=== PATIENT | female | born 1945 | race Caucasian/White ===

== ENCOUNTER 2017-10-26 19:25 | Inpatient (IN) | payer MEDICARE, BC ==
[2017-10-26 20:26] LABS: BASO # 0.1 K/uL (0.0-0.2); BASO % 0.4 % (0.0-2.0); EOS % 0.1 % (0.0-4.0); HEMOGLOBIN 11.4 g/dL (12.0-16.0); LYMPH % 7.9 % (20.0-40.0); MEAN CELL VOLUME 75.4 fl (81.0-99.0); MEAN CORPUSCULAR HEMOGLOBIN 24.6 pg (27.0-31.0); MEAN CORPUSCULAR HGB CONC 32.6 g/dL (33.0-37.0); MEAN PLATELET VOLUME 7.8 fl (7.2-11.7); MONO # 1.2 K/uL (0.0-0.8); MONO % 9.7 % (0.0-10.0); NEUT # 9.9 K/uL (1.8-7.0); NEUT % 81.9 % (50.0-75.0); PLATELET COUNT 279 K/uL (130-400); RBC 4.62 Mil/uL (3.80-5.20); RED CELL DISTRIBUTION WIDTH 14.7 % (11.5-14.5); WHITE BLOOD COUNT 12.1 K/uL (4.8-10.8)
[2017-10-26 20:36] LABS: ALB/GLOB RATIO 1.2 (1.0-2.1); ALBUMIN 4.5 g/dL (3.5-5.0)
--- NOTE | 2017-10-26 20:56 | ED PDOC ---
HPI: Altered Mental Status Time Seen by Provider: 10/26/17 19:38 Chief Complaint (Nursing): Altered Mental Status History Per: Patient, Family History/Exam Limitations: None Onset/Duration Of Symptoms: Hrs Onset Of Symptoms: <4.5 Hours Current Symptoms Are (Timing): Still Present Description Of Symptoms: Not At Baseline Usual Baseline: Alert Oriented, Alert Confused Additional Complaint(s): Hx of DM, HTN p/w AMS. Son last saw patient acting normally at 10AM, states he saw her last normal around 3-4PM, the acute episode of AMS was her confusion in an elevator where she was pushing buttons that weren't hers. Son states that she has been on ABx for a UTI (levoquin, macrobid) and has developed a rash on bilateral arms for 1 day as well. Patient is non-verbal, confused upon arrival. Past Medical History Reviewed: Unable To Obtain Vital Signs: Last Vital Signs Temp 98.8 F 10/26/17 20:15 Pulse 103 H 10/26/17 20:15 Resp 18 10/26/17 20:15 BP 156/95 H 10/26/17 20:15 Pulse Ox 98 10/26/17 20:15 - Medical History PMH: Diabetes, HTN - Family History Family History: States: Unknown Family Hx - Home Medications Home Medications: Ambulatory Orders Medication Instructions Recorded Carvedilol [Coreg] 25 mg PO BID 06/17/16 Ferrous Sulfate [Feosol] 325 mg PO HS 06/17/16 Glimepiride [Amaryl] 4 mg PO BID 06/17/16 Linagliptin [Tradjenta] 5 mg PO DAILY 06/17/16 Metformin ER [Glucophage XR] 750 mg PO BID 06/17/16 Multivitamin [Multi-Vitamin Daily] 1 tab PO DAILY 06/17/16 Pravastatin Sodium [Pravachol] 40 mg PO HS 06/17/16 Valsartan/Hydrochlorothiazide 1 tab PO BID 06/17/16 [Valsartan-Hctz 160-25 mg Tab] amLODIPine [Norvasc] 5 mg PO DAILY 06/17/16 Furosemide [Lasix] 40 mg PO DAILY 10/26/17 Guaifen/Dextromethorphan/PE [Cvs 20 ml PO Q6 PRN 10/26/17 Tussin Cf Cough-Cold Syrup] Hydrochlorothiazide [Microzide] 25 mg PO DAILY 10/26/17 Potassium Chloride [Klor-Con 10] 10 meq PO DAILY 10/26/17 levoFLOXacin [Levaquin] 500 mg PO DAILY 10/26/17 - Allergies Allergies/Adverse Reactions: Allergies Allergy/AdvReac Type Severity Reaction Status Date / Time acetaminophen [From Tylenol] Allergy RASH Verified 06/17/16 17:39 chlorophyllin Allergy RASH Verified 06/17/16 17:39 baking soda Allergy RASH Uncoded 06/17/16 17:39 Review of Systems Review Of Systems: ROS cannot be obtained secondary to pt's inabilty to answer questions. Physical Exam - Reviewed Nursing Documentation Reviewed: Yes Vital Signs Reviewed: Yes - Physical Exam Appears: Positive for: Well. 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 Negative for: Alert (non-verbal but eyes open spontaneously, GCS 9 at time of exam), Oriented, Facial Droop - Laboratory Results Result Diagrams: 10/26/17 20:15 10/26/17 20:15 - ECG ECG Rhythm: Positive for: Normal QRS O2 Sat by Pulse Oximetry: 98 Pulse Ox Interpretation: Normal - Critical Care Total Time (In Min): 60 Medical Decision Making Medical Decision Making: Hx of DM, HTN, recent UTI p/w AMS -at time of presentation patient was aphasic, confused, however at 830PM patient is now recognizing family members, smiling, seems more alert -possible CVA v. electrolyte abnormality v. infection v. infection -time of onset very difficult to ascertain 930PM Pt. is now speaking more alertly and keenly, walking. Evaluated by neuro Dr. Valadez (at bedside) who states that patient does not need TPA at this time, likely dementia related. Mildly elevated troponin, repeat EKG shows no ischemic changes. Will admit for further workup. Disposition - Clinical Impression Clinical Impression: TIA (transient ischemic attack), Altered mental state, Elevated troponin, Hypokalemia - Disposition Disposition Time: 21:30 Condition: IMPROVED
[2017-10-26] MEDS ORDERED: Iodixanol 320 MG/ML 100 ML BOTTLE IV ONE (20:57)
[2017-10-26] MEDS ORDERED: Sodium Chloride 0.9% 50 ML IV ONE (20:58)
[2017-10-26 21:00] LABS: TROPONIN I 0.408 ng/mL (0.00-0.120)
[2017-10-26 21:10] LABS: INR 1.3 (0.9-1.2); PARTIAL THROMBOPLASTIN TIME 30.8 Seconds (25.6-37.1)
--- NOTE | 2017-10-26 21:54 | CP.PCM.CON ---
History of Present Illness - History of Present Illness History of Present Illness: 71 yr old woman with pmh of DM, HTN, cardiac disease, without history of atrial fibrillation, no pacemaker in place who presents with approximately 12 hour history of confusion. Patient's baseline is that she cooks, cleans, and occasionally plays with her grandchildren,. She does not drive or do bills. There is no history of head trauma, MVA or any other cranial surgery. Of note, she developed a UTI 3 weeks ago, and was started on levoquine last Tuesday. She was well with no side effects until around 3 pm today, when after being stuck in an elevator, she seemed confused. There is no history tonic clonic activity, no urinary incontinence, no staring spells. In the ER, she was found to have decreased verbal output, with no focal weakness. CT head was done, normal, and CTA was done as well, report pending. PMH/PSH: hyperlipidemia, hypothyroidism, heart disease (patient is on lasix) FH/SH: . has several children. no tobacco, no etoh. All : tylenol. on exam: AAox2. knows her children, daughter in law and can name 3 obects in [place]. no dysarthria. Can not speak full sentences, but does follow 3 step commands, and moves extremities against gravity well. 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 We pulled her to sit but she was a fall risk so she did not stand. There is no gaze preference, no field cut that we could appreciate. EOMI. CN 2- 12 normal. SHe has a reddish raised rash on her arms only, with no pruritus. No facial asymmetry. DTR: +1 ul and ll bl. Toes downgoing. No clonus. No drift. Past Patient History - Infectious Disease Hx of Infectious Diseases: None - Past Social History Smoking Status: Never Smoked - CARDIAC Hx Hypertension: Yes - ENDOCRINE/METABOLIC Hx Endocrine Disorders: Yes Hx Diabetes Mellitus Type 2: Yes - PSYCHIATRIC Hx Substance Use: No - SURGICAL HISTORY Hx Surgeries: Yes Hx Cataract Extraction: Yes (bilateral) Hx Orthopedic Surgery: Yes (bilateral knee replacement) - ANESTHESIA Hx Anesthesia: Yes Hx Anesthesia Reactions: No Meds Allergies/Adverse Reactions: Allergies Allergy/AdvReac Type Severity Reaction Status Date / Time acetaminophen [From Tylenol] Allergy RASH Verified 06/17/16 17:39 chlorophyllin Allergy RASH Verified 06/17/16 17:39 baking soda Allergy RASH Uncoded 06/17/16 17:39 Results - Vital Signs Recent Vital Signs: Last Vital Signs Temp 98.8 F 10/26/17 20:15 Pulse 103 H 10/26/17 20:45 Resp 18 10/26/17 20:45 BP 162/87 H 10/26/17 20:45 Pulse Ox 98 10/26/17 21:00 - Labs Result Diagrams: 10/26/17 20:15 10/26/17 20:15 Labs: Laboratory Results - last 24 hr 10/26/17 10/26/17 10/26/17 19:42 20:15 20:15 WBC 12.1 H RBC 4.62 Hgb 11.4 L Hct 34.9 MCV 75.4 L MCH 24.6 L MCHC 32.6 L RDW 14.7 H Plt Count 279 MPV 7.8 Neut % (Auto) 81.9 H Lymph % (Auto) 7.9 L Owsley % (Auto) 9.7 Eos % (Auto) 0.1 Baso % (Auto) 0.4 Neut # (Auto) 9.9 H Lymph # (Auto) 1.0 Owsley # (Auto) 1.2 H Eos # (Auto) 0.0 Baso # (Auto) 0.1 PT INR APTT Sodium 128 L Potassium 3.1 L Chloride 81 L Carbon Dioxide 31 H Anion Gap 19 BUN 30 H Creatinine 1.9 H Est GFR ( Amer) 32 Est GFR (Non-Af Amer) 26 POC Glucose (mg/dL) 231 H Random Glucose 284 H Calcium 10.0 Total Bilirubin 0.9 AST 33 ALT 37 Alkaline Phosphatase 94 Troponin I 0.4080 H* Total Protein 8.4 H Albumin 4.5 Globulin 3.9 Albumin/Globulin Ratio 1.2 Triglycerides 147 Cholesterol 141 LDL Cholesterol Direct 40 HDL Cholesterol 53 Blood Type Antibody Screen BBK History Checked 10/26/17 10/26/17 20:15 20:25 WBC RBC Hgb Hct MCV MCH MCHC RDW Plt Count MPV Neut % (Auto) Lymph % (Auto) Owsley % (Auto) Eos % (Auto) Baso % (Auto) Neut # (Auto) Lymph # (Auto) Owsley # (Auto) Eos # (Auto) Baso # (Auto) PT 14.0 H INR 1.3 H APTT 30.8 Sodium Potassium Chloride Carbon Dioxide Anion Gap BUN Creatinine Est GFR ( Amer) Est GFR (Non-Af Amer) POC Glucose (mg/dL) Random Glucose Calcium Total Bilirubin AST ALT Alkaline Phosphatase Troponin I Total Protein Albumin Globulin Albumin/Globulin Ratio Triglycerides Cholesterol LDL Cholesterol Direct HDL Cholesterol Blood Type O NEGATIVE Antibody Screen Negative BBK History Checked No verified bt - Imaging and Cardiology CT scan - head Additional comment: CT head is normal. No stroke, no hemorrhage. Assessment & Plan - Assessment and Plan (Free Text) Assessment: 71 yr old woman who has delirium with underlying infection, most likely UTI (? levoquin resistant), with normal neurological exam. It is possible that this spell was a complex partial seizure, or TIA. Plan: 1. MRi Brain tomorrow 2. EEG 3. start aspirin 4. Carotid Dopplers 5. Official CTA read 6. ECHO 7. Dysphagia evaluation. 8. UTI antibiotics: blood and urine culture. Thank you for this interesting consultation. Our team will follow.
[2017-10-26 22:14] LABS: ANISOCYTOSIS SLIGHT; BANDS 3 % (0-2); HYPOCHROMIC SLIGHT; LYMPHOCYTE 10 % (20-50); MICROCYTOSIS MODERATE; MONOCYTE 9 % (0-10); NEUTROPHIL 78 % (42-75); OVALOCYTES SLIGHT; PLATELET ESTIMATE NORMAL (NORMAL); POIKILOCYTOSIS SLIGHT; TOTAL CELLS COUNTED 100
[2017-10-26] MEDS ORDERED: Potassium Chloride 20 mEq ER Tab PO ONE ×2 (22:21→22:58)
[2017-10-26 22:52] LABS: SQUAMOUS EPITHIAL < 1 /hpf (0-5); URINE BACTERIA RARE (<OCC); URINE BILIRUBIN NEGATIVE (NEGATIVE); URINE BLOOD SMALL (NEGATIVE); URINE CLARITY SLIGHTY-CLOUDY (Clear); URINE COLOR YELLOW (YELLOW); URINE GLUCOSE (UA) 150 mg/dL (Normal); URINE LEUKOCYTE ESTERASE TRACE Leu/uL (Negative); URINE NITRATE NEGATIVE (NEGATIVE); URINE PROTEIN NEGATIVE (NEGATIVE); URINE UROBILINOGEN 0.2-1.0 mg/dL (0.2-1.0)
[2017-10-27] MEDS ORDERED: Alum-Mag Hydrox-Simethicone Susp (30 mL) PO ONE (02:52)
[2017-10-27] MEDS: Heparin 25,000units in D5W 25,000 UNITS/250 ML BAG IV SCH (06:21)
[2017-10-27 07:23] LABS: HEMOGLOBIN 10.9 g/dL (12.0-16.0); MEAN CELL VOLUME 75.2 fl (81.0-99.0); MEAN CORPUSCULAR HGB CONC 33.2 g/dL (33.0-37.0); RBC 4.38 Mil/uL (3.80-5.20); RED CELL DISTRIBUTION WIDTH 14.6 % (11.5-14.5); WHITE BLOOD COUNT 10.2 K/uL (4.8-10.8)
[2017-10-27 07:35] LABS: BLOOD UREA NITROGEN 18 mg/dl (7-17); CALCIUM 9.7 mg/dL (8.4-10.2); GFR AFRICAN-AMERICAN > 60; GFR NON-AFRICAN AMERICAN > 60
[2017-10-27] MEDS ORDERED: Sodium Chloride 0.9% 1,000 ML IV SCH (07:45)
[2017-10-27] MEDS ORDERED: Patient's Own Med (Metformin Er [Glucophage Xr] 750 mg) PO SCH (09:00)
[2017-10-27] MEDS ORDERED: Patient's Own Med (Multivitamin [Multi-Vitamin Daily] 1 TAB) PO SCH (09:00)
[2017-10-27] MEDS ORDERED: Enoxaparin 30 mg Syringe SC SCH (09:00)
--- NOTE | 2017-10-27 09:24 | CT ---
PROCEDURE: CT HEAD WITHOUT CONTRAST. HISTORY: AMS COMPARISON: CT head dated 06/17/2016. TECHNIQUE: Axial computed tomography images were obtained through the head/brain without intravenous contrast. Radiation dose: Total exam DLP = 2049.7 mGy-cm. This CT exam was performed using one or more of the following dose reduction techniques: Automated exposure control, adjustment of the mA and/or kV according to patient size, and/or use of iterative reconstruction technique. FINDINGS: HEMORRHAGE: No intracranial hemorrhage. BRAIN: No mass effect or edema. Mild atrophy. Mild chronic periventricular white matter microvascular ischemic changes. VENTRICLES: Mild prominence. No hydrocephalus. CALVARIUM: Unremarkable. PARANASAL SINUSES: Trace fluid in the dependent right sphenoid sinus. MASTOID AIR CELLS: Unremarkable as visualized. No inflammatory changes. OTHER FINDINGS: None. IMPRESSION: No acute intracranial pathology.
--- NOTE | 2017-10-27 11:03 | CT ---
PROCEDURE: CT Angiography of the neck with contrast HISTORY: AMS, aphasia COMPARISON: None available. TECHNIQUE: Contiguous axial images of the neck were obtained from the level of the skull-base to the superior mediastinum in the arteriographic phase of enhancement. Coronal and sagittal reformats or also generated. IV contrast dose: 80 cc of Visipaque Radiation Dose - DLP: 2103 mGy-cm This CT exam was performed using one or more of the following dose reduction techniques: Automated exposure control, adjustment of the mA and/or kV according to patient size, and/or use of iterative reconstruction technique. FINDINGS: RIGHT CAROTID ARTERIES: Common Carotid Artery: Normal. Carotid Bifurcation: Normal. Internal Carotid Artery:Normal. External Carotid Artery (proximal branches): Normal. LEFT CAROTID ARTERIES: Common Carotid Artery: Normal. Carotid Bifurcation: Normal. Internal Carotid Artery:Normal. External Carotid Artery (proximal branches): Normal. VERTEBRAL ARTERIES: Right Vertebral Artery: Normal. Left Vertebral Artery: Normal. OTHER FINDINGS: None. IMPRESSION: No significant stenosis PROCEDURE: CT Angiography of the Brain. HISTORY: AMS, aphasia COMPARISON: None available. TECHNIQUE: CT angiography of the intracranial arteries was performed. Coronal and sagittal maximum intensity projection reformated images were generated. This CT exam was performed using one or more of the following dose reduction techniques: Automated exposure control, adjustment of the mA and/or kV according to patient size, and/or use of iterative reconstruction technique. FINDINGS: INTERNAL CEREBRAL ARTERIES: Unremarkable. The skull base, petrous, cavernous and supraclinoid segments are bilaterally widely patent. There is heavy calcification of the intra cavernous portion of both carotid arteries but no stenosis ANTERIOR CEREBRAL ARTERIES: Unremarkable. A1 and A2 segments are widely patent. Smaller distal branches unremarkable, as visualized. MIDDLE CEREBRAL ARTERIES: Unremarkable. M1 and M2 segments are widely patent. Perisylvian branches grossly symmetric. POSTERIOR CIRCULATION: Basilar Artery: Unremarkable. Distal Vertebral Arteries: Unremarkable. Posterior Cerebral Arteries: Unremarkable. Posterior Inferior Cerebellar Arteries: Unremarkable. ANEURYSM/ VASCULAR MALFORMATIONS: None. OTHER FINDINGS: The report concurs with the preliminary [facility] report IMPRESSION: Unremarkable CT Angiography of the Brain.
--- NOTE | 2017-10-27 11:25 | RAD ---
HISTORY: Altered mental status. COMPARISON: 07/30/2009 FINDINGS: LUNGS: No active pulmonary disease. PLEURA: No significant pleural effusion identified, no pneumothorax apparent. CARDIOVASCULAR: Buster for cardiac OSSEOUS STRUCTURES: No significant abnormalities. VISUALIZED UPPER ABDOMEN: Normal. OTHER FINDINGS: None. IMPRESSION: No active disease. No significant interval change compared to the prior examination(s). Concordant results with the preliminary interpretation rendered by the emergency department physician procedure.
[2017-10-27] MEDS ORDERED: Glucagon Recombinant 1 mg Inj IM PRN (12:24)
[2017-10-27] MEDS ORDERED: Dextrose 50% SYRINGE Inj (50 ml) IV PRN (12:24)
--- NOTE | 2017-10-27 12:25 | CARD ---
APPROVED REPORT EKG Measurement Heart [id number] <Conclusion> Normal sinus rhythm ST & T wave abnormality, consider anterior ischemia Abnormal ECG
--- NOTE | 2017-10-27 12:28 | CARD ---
APPROVED REPORT EKG Measurement Heart [id number] <Conclusion> Sinus rhythm with 1st degree AV block Cannot rule out Inferior infarct, age undetermined ST & T wave abnormality, consider anterior ischemia Abnormal ECG
--- NOTE | 2017-10-27 13:18 | CARD ---
APPROVED REPORT EXAM: Two-dimensional and M-mode echocardiogram with Doppler and color Doppler. Other Information Quality : AverageRhythm : NSR Technically limited study due to Pt not very cooperative INDICATION CVA/TIA Elevated Troponin 2D DIMENSIONS Left Atrium (2D)2.62 (1.6-4.0cm)IVSd0.91 (0.7-1.1cm) LVDd4.65 (3.9-5.9cm)PWd0.66 (0.7-1.1cm) IVSs0.89 (0.8-1.2cm)LVDs3.59 (2.5-4.0cm) FS (%) 22.8 %PWs0.74 (0.8-1.2cm) Mitral Valve MV E Bmfddouu55.9cm/sMV DECEL [id number] A Ujxckaqu36.1cm/s MV FKG34dkD/A ratio0.8MVA (PHT)2.71cm2 TDI E/Lateral E'0.0E/Medial E'0.0 LEFT VENTRICLE The left ventricle is normal size. There is normal left ventricular wall thickness. The left ventricular function is normal. The left ventricular ejection fraction is within the normal range. The Ejection Fraction is 50-55%. There is normal LV segmental wall motion. Transmitral Doppler flow pattern is Grade I-abnormal relaxation pattern. RIGHT VENTRICLE The right ventricle is normal size. The right ventricular systolic function is normal. ATRIA The left atrium size is normal. The right atrium size is normal. AORTIC VALVE The aortic valve is normal in structure. No aortic regurgitation is present. There is no aortic valvular stenosis. MITRAL VALVE The mitral valve is normal in structure. There is no mitral valve stenosis. There is no mitral valve regurgitation noted. TRICUSPID VALVE The tricuspid valve is normal in structure. There is no tricuspid valve regurgitation noted. There is no tricuspid valve stenosis. PULMONIC VALVE The pulmonary valve is normal in structure. There is no pulmonic valvular regurgitation. GREAT VESSELS The aortic root is normal in size. The IVC is normal in size and collapses >50% with inspiration. PERICARDIAL EFFUSION The pericardium appears normal. <Conclusion> The left ventricle is normal size. The left ventricular function is normal. The left ventricular ejection fraction is within the normal range. The Ejection Fraction is 50-55%.
[2017-10-27] MEDS: GlipiZIDE 10 mg SR Tab PO SCH ×2 (14:48→17:28)
[2017-10-27] MEDS: Potassium Chl 20 mEq in NS 1,000 ML IV SCH ×2 (14:49→22:12)
[2017-10-27] MEDS: Multivitamin With Minerals Tab PO SCH (14:49)
--- NOTE | 2017-10-27 15:57 | CP.PCM.CON ---
History of Present Illness - History of Present Illness History of Present Illness: MENTAL STATUS CHANGE YESTERDAY WITH CONFUSION AND REPETITION OF WORDS. PTS FAMILY STATES SHE HAS BEEN COMPLAINING OF CONFUSION, FATIGUE AND MOUTH DRYNESS FOR 1 WEEK. SHE HAD MILD ABD PAIN YESTERDAY. NO COMPLAINTS OF CP, SOB, DIARRHEA, MARTIN, DOUBLE VISION, DIZZINESS. NO KNOWN CAD HX. IN ER PT WAS CONFUSED AND TROP DRAWN WHICH WERE INITIALLY LOW, REPEAT 1.9. EKG SHOWS INVERTED LATERAL T WAVES. NA 123, K LOW. Past Patient History - Infectious Disease Hx of Infectious Diseases: None - Past Social History Smoking Status: Never Smoked - CARDIAC Hx Hypertension: Yes - ENDOCRINE/METABOLIC Hx Endocrine Disorders: Yes - PSYCHIATRIC Hx Substance Use: No - SURGICAL HISTORY Hx Surgeries: Yes Hx Cataract Extraction: Yes (bilateral) Hx Orthopedic Surgery: Yes (bilateral knee replacement) - ANESTHESIA Hx Anesthesia: Yes Hx Anesthesia Reactions: No Meds Allergies/Adverse Reactions: Allergies Allergy/AdvReac Type Severity Reaction Status Date / Time acetaminophen [From Tylenol] Allergy RASH Verified 06/17/16 17:39 chlorophyllin Allergy RASH Verified 06/17/16 17:39 Sulfa (Sulfonamide Allergy RASH Verified 10/27/17 17:00 Antibiotics) baking soda Allergy RASH Uncoded 06/17/16 17:39 - Medications Medications: Current Medications Amlodipine Besylate (Norvasc) 5 mg PO DAILY COUNTS INCLUDE 234 BEDS AT THE [facility] Last Admin: 10/27/17 14:48 Dose: Not Given Aspirin (Aspirin) 325 mg PO DAILY COUNTS INCLUDE 234 BEDS AT THE [facility] Last Admin: 10/27/17 14:46 Dose: Not Given Carvedilol (Coreg) 25 mg PO BID COUNTS INCLUDE 234 BEDS AT THE [facility] Last Admin: 10/27/17 14:46 Dose: Not Given Dextrose (Dextrose 50% Inj) 0 ml IV STAT PRN; Protocol PRN Reason: Hypoglycemia Protocol Dextrose (Glutose 15) 0 gm PO ONCE PRN; Protocol PRN Reason: Hypoglycemia Protocol Ferrous Sulfate (Feosol) 325 mg PO HS COUNTS INCLUDE 234 BEDS AT THE [facility] Glipizide (Glucotrol Xl) 10 mg PO BID COUNTS INCLUDE 234 BEDS AT THE [facility] Last Admin: 10/27/17 14:48 Dose: Not Given Glucagon (Glucagen Diagnostic Kit) 0 mg IM STAT PRN; Protocol PRN Reason: Hypoglycemia Protocol Heparin Sodium/Dextrose (Heparin 25,000 Units/250ml In D5w) 25,000 units in 250 mls @ 8 mls/hr IV .Q24H DANIELLE PRN Reason: Protocol Last Admin: 10/27/17 06:21 Dose: 8 mls/hr Potassium Chloride/Sodium Chloride (Potassium Chl 20 Meq In Ns) 1,000 mls @ 100 mls/hr IV .Q10H DANIELLE Stop: 10/28/17 07:32 Last Admin: 10/27/17 14:49 Dose: 100 mls/hr Insulin Human Regular (Humulin R) 0 units SC ACHS DANIELLE PRN Reason: Protocol Multivitamins/Minerals (Therapeutic-M Tab) 1 tab PO DAILY DANIELLE Last Admin: 10/27/17 14:49 Dose: Not Given Pravastatin Sodium (Pravachol) 40 mg PO HS DANIELLE Sitagliptin Phosphate (Januvia) 25 mg PO DAILY COUNTS INCLUDE 234 BEDS AT THE [facility] Last Admin: 10/27/17 14:48 Dose: Not Given Results - Vital Signs Recent Vital Signs: Last Vital Signs Temp 97.4 F L 10/27/17 12:47 Pulse 65 10/27/17 12:47 Resp 18 10/27/17 12:47 BP 135/65 10/27/17 12:47 Pulse Ox 96 10/27/17 12:47 - Labs Result Diagrams: 10/27/17 07:05 10/27/17 17:37 Labs: Laboratory Results - last 24 hr 10/26/17 10/26/17 10/26/17 19:42 20:15 20:15 WBC 12.1 H RBC 4.62 Hgb 11.4 L Hct 34.9 MCV 75.4 L MCH 24.6 L MCHC 32.6 L RDW 14.7 H Plt Count 279 MPV 7.8 Neut % (Auto) 81.9 H Lymph % (Auto) 7.9 L [place] % (Auto) 9.7 Eos % (Auto) 0.1 Baso % (Auto) 0.4 Neut # (Auto) 9.9 H Lymph # (Auto) 1.0 [place] # (Auto) 1.2 H Eos # (Auto) 0.0 Baso # (Auto) 0.1 Neutrophils % (Manual) 78 H Band Neutrophils % 3 H Lymphocytes % (Manual) 10 L Monocytes % (Manual) 9 Platelet Estimate Normal Hypochromasia (manual) Slight Poikilocytosis (manual Slight Anisocytosis (manual) Slight Microcytosis (manual) Moderate Ovalocytes Slight PT INR APTT Sodium 128 L Potassium 3.1 L Chloride 81 L Carbon Dioxide 31 H Anion Gap 19 BUN 30 H Creatinine 1.9 H Est GFR ( Amer) 32 Est GFR (Non-Af Amer) 26 POC Glucose (mg/dL) 231 H Random Glucose 284 H Serum Osmolality Calcium 10.0 Total Bilirubin 0.9 AST 33 ALT 37 Alkaline Phosphatase 94 Troponin I 0.4080 H* Total Protein 8.4 H Albumin 4.5 Globulin 3.9 Albumin/Globulin Ratio 1.2 Triglycerides 147 Cholesterol 141 LDL Cholesterol Direct 40 HDL Cholesterol 53 TSH 3rd Generation Urine Color Urine Clarity Urine pH Ur Specific [place] Urine Protein Urine Glucose (UA) Urine Ketones Urine Blood Urine Nitrate Urine Bilirubin Urine Urobilinogen Ur Leukocyte Esterase Urine RBC (Auto) Urine Microscopic WBC Ur Squamous Epith Cells Urine Bacteria Urine Osmolality Blood Type Antibody Screen BBK History Checked 10/26/17 10/26/17 10/26/17 20:15 20:25 22:11 WBC RBC Hgb Hct MCV MCH MCHC RDW Plt Count MPV Neut % (Auto) Lymph % (Auto) [place] % (Auto) Eos % (Auto) Baso % (Auto) Neut # (Auto) Lymph # (Auto) [place] # (Auto) Eos # (Auto) Baso # (Auto) Neutrophils % (Manual) Band Neutrophils % Lymphocytes % (Manual) Monocytes % (Manual) Platelet Estimate Hypochromasia (manual) Poikilocytosis (manual Anisocytosis (manual) Microcytosis (manual) Ovalocytes PT 14.0 H INR 1.3 H APTT 30.8 Sodium Potassium Chloride Carbon Dioxide Anion Gap BUN Creatinine Est GFR ( Amer) Est GFR (Non-Af Amer) POC Glucose (mg/dL) Random Glucose Serum Osmolality Calcium Total Bilirubin AST ALT Alkaline Phosphatase Troponin I Total Protein Albumin Globulin Albumin/Globulin Ratio Triglycerides Cholesterol LDL Cholesterol Direct HDL Cholesterol TSH 3rd Generation Urine Color Yellow Urine Clarity Slighty-cloudy Urine pH 7.0 Ur Specific [place] 1.013 Urine Protein Negative Urine Glucose (UA) 150 Urine Ketones Trace Urine Blood Small Urine Nitrate Negative Urine Bilirubin Negative Urine Urobilinogen 0.2-1.0 Ur Leukocyte Esterase Trace Urine RBC (Auto) < 1 Urine Microscopic WBC 1 Ur Squamous Epith Cells < 1 Urine Bacteria Rare Urine Osmolality Blood Type O NEGATIVE Antibody Screen Negative BBK History Checked No verified bt 10/26/17 10/27/17 10/27/17 23:10 04:21 05:32 WBC RBC Hgb Hct MCV MCH MCHC RDW Plt Count MPV Neut % (Auto) Lymph % (Auto) [place] % (Auto) Eos % (Auto) Baso % (Auto) Neut # (Auto) Lymph # (Auto) [place] # (Auto) Eos # (Auto) Baso # (Auto) Neutrophils % (Manual) Band Neutrophils % Lymphocytes % (Manual) Monocytes % (Manual) Platelet Estimate Hypochromasia (manual) Poikilocytosis (manual Anisocytosis (manual) Microcytosis (manual) Ovalocytes PT INR APTT Sodium Potassium Chloride Carbon Dioxide Anion Gap BUN Creatinine Est GFR ( Amer) Est GFR (Non-Af Amer) POC Glucose (mg/dL) 199 H 227 H Random Glucose Serum Osmolality Calcium Total Bilirubin AST ALT Alkaline Phosphatase Troponin I 1.9200 H* Total Protein Albumin Globulin Albumin/Globulin Ratio Triglycerides Cholesterol LDL Cholesterol Direct HDL Cholesterol TSH 3rd Generation Urine Color Urine Clarity Urine pH Ur Specific [place] Urine Protein Urine Glucose (UA) Urine Ketones Urine Blood Urine Nitrate Urine Bilirubin Urine Urobilinogen Ur Leukocyte Esterase Urine RBC (Auto) Urine Microscopic WBC Ur Squamous Epith Cells Urine Bacteria Urine Osmolality Blood Type Antibody Screen BBK History Checked 10/27/17 10/27/17 10/27/17 06:00 06:01 07:05 WBC 10.2 RBC 4.38 Hgb 10.9 L Hct 32.9 L MCV 75.2 L MCH 25.0 L MCHC 33.2 RDW 14.6 H Plt Count 266 MPV Neut % (Auto) Lymph % (Auto) [place] % (Auto) Eos % (Auto) Baso % (Auto) Neut # (Auto) Lymph # (Auto) [place] # (Auto) Eos # (Auto) Baso # (Auto) Neutrophils % (Manual) Band Neutrophils % Lymphocytes % (Manual) Monocytes % (Manual) Platelet Estimate Hypochromasia (manual) Poikilocytosis (manual Anisocytosis (manual) Microcytosis (manual) Ovalocytes PT INR APTT Sodium 123 L Potassium 3.1 L Chloride 82 L Carbon Dioxide 27 Anion Gap 17 BUN 18 H Creatinine 0.8 Est GFR ( Amer) > 60 Est GFR (Non-Af Amer) > 60 POC Glucose (mg/dL) Random Glucose 234 H Serum Osmolality Calcium 9.7 Total Bilirubin AST ALT Alkaline Phosphatase Troponin I Total Protein Albumin Globulin Albumin/Globulin Ratio Triglycerides 148 Cholesterol 126 LDL Cholesterol Direct 37 HDL Cholesterol 48 TSH 3rd Generation 1.37 Urine Color Urine Clarity Urine pH Ur Specific [place] Urine Protein Urine Glucose (UA) Urine Ketones Urine Blood Urine Nitrate Urine Bilirubin Urine Urobilinogen Ur Leukocyte Esterase Urine RBC (Auto) Urine Microscopic WBC Ur Squamous Epith Cells Urine Bacteria Urine Osmolality Blood Type Antibody Screen BBK History Checked 10/27/17 10/27/17 10/27/17 07:45 07:59 12:29 WBC RBC Hgb Hct MCV MCH MCHC RDW Plt Count MPV Neut % (Auto) Lymph % (Auto) [place] % (Auto) Eos % (Auto) Baso % (Auto) Neut # (Auto) Lymph # (Auto) [place] # (Auto) Eos # (Auto) Baso # (Auto) Neutrophils % (Manual) Band Neutrophils % Lymphocytes % (Manual) Monocytes % (Manual) Platelet Estimate Hypochromasia (manual) Poikilocytosis (manual Anisocytosis (manual) Microcytosis (manual) Ovalocytes PT INR APTT Sodium Potassium Chloride Carbon Dioxide Anion Gap BUN Creatinine Est GFR ( Amer) Est GFR (Non-Af Amer) POC Glucose (mg/dL) 249 H Random Glucose Serum Osmolality 270 L Calcium Total Bilirubin AST ALT Alkaline Phosphatase Troponin I Total Protein Albumin Globulin Albumin/Globulin Ratio Triglycerides Cholesterol LDL Cholesterol Direct HDL Cholesterol TSH 3rd Generation Urine Color Urine Clarity Urine pH Ur Specific [place] Urine Protein Urine Glucose (UA) Urine Ketones Urine Blood Urine Nitrate Urine Bilirubin Urine Urobilinogen Ur Leukocyte Esterase Urine RBC (Auto) Urine Microscopic WBC Ur Squamous Epith Cells Urine Bacteria Urine Osmolality 287 L Blood Type Antibody Screen BBK History Checked 10/27/17 10/27/17 12:50 14:02 WBC RBC Hgb Hct MCV MCH MCHC RDW Plt Count MPV Neut % (Auto) Lymph % (Auto) [place] % (Auto) Eos % (Auto) Baso % (Auto) Neut # (Auto) Lymph # (Auto) [place] # (Auto) Eos # (Auto) Baso # (Auto) Neutrophils % (Manual) Band Neutrophils % Lymphocytes % (Manual) Monocytes % (Manual) Platelet Estimate Hypochromasia (manual) Poikilocytosis (manual Anisocytosis (manual) Microcytosis (manual) Ovalocytes PT INR APTT Sodium Potassium Chloride Carbon Dioxide Anion Gap BUN Creatinine Est GFR ( Amer) Est GFR (Non-Af Amer) POC Glucose (mg/dL) Random Glucose Serum Osmolality 274 Calcium Total Bilirubin AST ALT Alkaline Phosphatase Troponin I 1.2600 H* Total Protein Albumin Globulin Albumin/Globulin Ratio Triglycerides Cholesterol LDL Cholesterol Direct HDL Cholesterol TSH 3rd Generation Urine Color Urine Clarity Urine pH Ur Specific [place] Urine Protein Urine Glucose (UA) Urine Ketones Urine Blood Urine Nitrate Urine Bilirubin Urine Urobilinogen Ur Leukocyte Esterase Urine RBC (Auto) Urine Microscopic WBC Ur Squamous Epith Cells Urine Bacteria Urine Osmolality Blood Type Antibody Screen BBK History Checked Assessment & Plan (1) Hyponatremia Status: Acute (2) Altered mental state Status: Acute (3) Elevated troponin Status: Acute (4) Hypokalemia Status: Acute - Assessment and Plan (Free Text) Plan: PT'S TROP IS TRENDING DOWN. SHE IS ON ASA AND HEPARIN TROPONIN IS LIKELY DUE TO SUBENDOCARDIAL ISCHEMIA GIVEN ELEVATED BP AND HR DURING CONFUSION ONCE CONFUSION RESOLVES THEN WILL EVAL FOR CAD. PT'S HYPONATREMIA IS LIKELY THE CAUSE OF HER MS CHANGES I SUSPECT HYPONATREMIA SECONDARY TO HCTZ AND LASIX. NO SEDATION SO MS CAN BE MONITORED 80 MIN TOTAL CARE
[2017-10-27] MEDS ORDERED: Potassium Chloride 20 mEq/15 ml LIQ UD PO ONE (15:58)
[2017-10-27 16:34] LABS: INR 1.3 (0.9-1.2); PARTIAL THROMBOPLASTIN TIME 48.8 Seconds (25.6-37.1); PROTHROMBIN TIME 14.5 Seconds (9.8-13.1)
[2017-10-27] MEDS: Insulin Regular 100 units/ml SC SCH ×2 (17:20→22:01)
[2017-10-27 18:36] LABS: BLOOD UREA NITROGEN 9 mg/dl (7-17); CALCIUM 7.8 mg/dL (8.4-10.2); GFR AFRICAN-AMERICAN > 60; GFR NON-AFRICAN AMERICAN > 60
[2017-10-27 18:38] LABS: MAGNESIUM 0.9 MG/DL (1.6-2.3)
[2017-10-27 21:15] LABS: MAGNESIUM 0.9 MG/DL (1.6-2.3)
[2017-10-27] MEDS ORDERED: Magnesium Sulfate 2 gm/50 ml 2 GM/50 ML BAG IVPB ONE (21:21)
[2017-10-27 21:31] LABS: BLOOD UREA NITROGEN 8 mg/dl (7-17); CALCIUM 7.6 mg/dL (8.4-10.2); GFR AFRICAN-AMERICAN > 60; GFR NON-AFRICAN AMERICAN > 60
[2017-10-27] MEDS: Pravastatin Sodium 40 MG TAB PO SCH (22:06)
--- NOTE | 2017-10-28 00:12 | CP.PCM.HP ---
History of Present Illness - History of Present Illness History of Present Illness: CC: AMS 1 Week History of Present Illness: A 71 yoF with H/O DM II & HTN presented with AMS which progressively worsened over a week. Son last saw patient acting normally at 10AM, states he saw her last normal around 3-4PM, the acute episode of AMS was her confusion in an elevator where she was pushing buttons that weren't hers. Son states that she has been on Abx for a UTI (levoquin, macrobid) and has developed a rash on bilateral arms for 1 day as well. Patient is non-verbal, confused upon arrival. In the ER, she was found to have Elevated Troponin, Hyponatremia and GERALD Present on Admission - Present on Admission Any Indicators Present on Admission: Yes History of DVT/PE: No History of Uncontrolled Diabetes: Yes Urinary Catheter: No Decubitus Ulcer Present: No Past Patient History - Infectious Disease Hx of Infectious Diseases: None - Past Medical History & Family History Past Medical History?: Yes - Past Social History Smoking Status: Never Smoked - CARDIAC Hx Hypertension: Yes - PULMONARY Hx Respiratory Disorders: No - NEUROLOGICAL Hx Neurological Disorder: No - HEENT Hx HEENT Problems: Yes Hx Cataracts: Yes - RENAL Hx Chronic Kidney Disease: No - ENDOCRINE/METABOLIC Hx Endocrine Disorders: Yes - HEMATOLOGICAL/ONCOLOGICAL Hx Blood Disorders: No Hx Blood Transfusions: No - INTEGUMENTARY Hx Dermatological Problems: Yes Other/Comment: Generalized rashes - MUSCULOSKELETAL/RHEUMATOLOGICAL Hx Musculoskeletal Disorders: No Hx Falls: No - GASTROINTESTINAL Hx Gastrointestinal Disorders: No - GENITOURINARY/GYNECOLOGICAL Hx Genitourinary Disorders: No - PSYCHIATRIC Hx Substance Use: No - SURGICAL HISTORY Hx Surgeries: Yes Hx Cataract Extraction: Yes (bilateral) Hx Orthopedic Surgery: Yes (bilateral knee replacement) - ANESTHESIA Hx Anesthesia: Yes Hx Anesthesia Reactions: No Meds Allergies/Adverse Reactions: Allergies Allergy/AdvReac Type Severity Reaction Status Date / Time acetaminophen [From Tylenol] Allergy RASH Verified 06/17/16 17:39 chlorophyllin Allergy RASH Verified 06/17/16 17:39 Sulfa (Sulfonamide Allergy RASH Verified 10/27/17 17:00 Antibiotics) baking soda Allergy RASH Uncoded 06/17/16 17:39 Results - Vital Signs Recent Vital Signs: Last Vital Signs Temp 98 F 10/27/17 17:00 Pulse 73 10/27/17 17:10 Resp 16 10/27/17 17:00 BP 129/72 10/27/17 17:10 Pulse Ox 100 10/27/17 17:00 - Labs Result Diagrams: 10/27/17 07:05 10/27/17 21:23 Labs: Laboratory Results - last 24 hr 10/27/17 10/27/17 10/27/17 04:21 05:32 06:00 WBC RBC Hgb Hct MCV MCH MCHC RDW Plt Count ESR PT INR APTT Sodium Potassium Chloride Carbon Dioxide Anion Gap BUN Creatinine Est GFR ( Amer) Est GFR (Non-Af Amer) POC Glucose (mg/dL) 227 H Random Glucose Hemoglobin A1c Serum Osmolality Calcium Magnesium Troponin I 1.9200 H* Triglycerides 148 Cholesterol 126 LDL Cholesterol Direct 37 HDL Cholesterol 48 TSH 3rd Generation 1.37 Urine Osmolality Ur Random Sodium Ur Random Potassium 10/27/17 10/27/17 10/27/17 06:01 06:41 07:05 WBC 10.2 RBC 4.38 Hgb 10.9 L Hct 32.9 L MCV 75.2 L MCH 25.0 L MCHC 33.2 RDW 14.6 H Plt Count 266 ESR PT INR APTT Sodium 123 L Potassium 3.1 L Chloride 82 L Carbon Dioxide 27 Anion Gap 17 BUN 18 H Creatinine 0.8 Est GFR ( Amer) > 60 Est GFR (Non-Af Amer) > 60 POC Glucose (mg/dL) Random Glucose 234 H Hemoglobin A1c 7.7 H Serum Osmolality Calcium 9.7 Magnesium Troponin I Triglycerides Cholesterol LDL Cholesterol Direct HDL Cholesterol TSH 3rd Generation Urine Osmolality Ur Random Sodium Ur Random Potassium 10/27/17 10/27/17 10/27/17 07:45 07:59 12:29 WBC RBC Hgb Hct MCV MCH MCHC RDW Plt Count ESR PT INR APTT Sodium Potassium Chloride Carbon Dioxide Anion Gap BUN Creatinine Est GFR ( Amer) Est GFR (Non-Af Amer) POC Glucose (mg/dL) 249 H Random Glucose Hemoglobin A1c Serum Osmolality 270 L Calcium Magnesium Troponin I Triglycerides Cholesterol LDL Cholesterol Direct HDL Cholesterol TSH 3rd Generation Urine Osmolality 287 L Ur Random Sodium Ur Random Potassium 10/27/17 10/27/17 10/27/17 12:50 14:02 14:45 WBC RBC Hgb Hct MCV MCH MCHC RDW Plt Count ESR PT 14.5 H INR 1.3 H APTT 48.8 H D Sodium Potassium Chloride Carbon Dioxide Anion Gap BUN Creatinine Est GFR ( Amer) Est GFR (Non-Af Amer) POC Glucose (mg/dL) Random Glucose Hemoglobin A1c Serum Osmolality 274 Calcium Magnesium Troponin I 1.2600 H* Triglycerides Cholesterol LDL Cholesterol Direct HDL Cholesterol TSH 3rd Generation Urine Osmolality Ur Random Sodium Ur Random Potassium 10/27/17 10/27/17 10/27/17 16:01 17:37 17:37 WBC RBC Hgb Hct MCV MCH MCHC RDW Plt Count ESR PT INR APTT Sodium 132 Potassium 6.2 H* D Chloride 97 L Carbon Dioxide 26 Anion Gap 15 BUN 9 Creatinine 0.5 L Est GFR ( Amer) > 60 Est GFR (Non-Af Amer) > 60 POC Glucose (mg/dL) 227 H Random Glucose 197 H Hemoglobin A1c Serum Osmolality 277 Calcium 7.8 L Magnesium 0.9 L* Troponin I Triglycerides Cholesterol LDL Cholesterol Direct HDL Cholesterol TSH 3rd Generation Urine Osmolality Ur Random Sodium Ur Random Potassium 10/27/17 10/27/17 10/27/17 17:37 18:27 20:25 WBC RBC Hgb Hct MCV MCH MCHC RDW Plt Count ESR 17 PT INR APTT Sodium Potassium Chloride Carbon Dioxide Anion Gap BUN Creatinine Est GFR ( Amer) Est GFR (Non-Af Amer) POC Glucose (mg/dL) Random Glucose Hemoglobin A1c Serum Osmolality Calcium Magnesium Troponin I 2.3100 H* Triglycerides Cholesterol LDL Cholesterol Direct HDL Cholesterol TSH 3rd Generation Urine Osmolality 247 L Ur Random Sodium 26 Ur Random Potassium 15.5 10/27/17 10/27/17 10/27/17 20:25 20:25 21:23 WBC RBC Hgb Hct MCV MCH MCHC RDW Plt Count ESR PT INR APTT 61.6 H D Sodium 130 L Potassium 3.7 3.8 Chloride 96 L Carbon Dioxide 23 Anion Gap 15 BUN 8 Creatinine 0.5 L Est GFR ( Amer) > 60 Est GFR (Non-Af Amer) > 60 POC Glucose (mg/dL) Random Glucose 214 H Hemoglobin A1c Serum Osmolality Calcium 7.6 L Magnesium 0.9 L* Troponin I Triglycerides Cholesterol LDL Cholesterol Direct HDL Cholesterol TSH 3rd Generation Urine Osmolality Ur Random Sodium Ur Random Potassium 10/27/17 21:53 WBC RBC Hgb Hct MCV MCH MCHC RDW Plt Count ESR PT INR APTT Sodium Potassium Chloride Carbon Dioxide Anion Gap BUN Creatinine Est GFR ( Amer) Est GFR (Non-Af Amer) POC Glucose (mg/dL) 175 H Random Glucose Hemoglobin A1c Serum Osmolality Calcium Magnesium Troponin I Triglycerides Cholesterol LDL Cholesterol Direct HDL Cholesterol TSH 3rd Generation Urine Osmolality Ur Random Sodium Ur Random Potassium Assessment & Plan (1) NSTEMI (non-ST elevated myocardial infarction) Status: Acute (2) GERALD (acute kidney injury) Status: Acute (3) Hypokalemia Status: Acute (4) Hyponatremia Status: Acute (5) TIA (transient ischemic attack) Status: Acute
[2017-10-28 05:36] LABS: HEMOGLOBIN 10.3 g/dL (12.0-16.0); MEAN CELL VOLUME 76.4 fl (81.0-99.0); MEAN CORPUSCULAR HEMOGLOBIN 25.3 pg (27.0-31.0); MEAN CORPUSCULAR HGB CONC 33.1 g/dL (33.0-37.0); RBC 4.08 Mil/uL (3.80-5.20); RED CELL DISTRIBUTION WIDTH 14.5 % (11.5-14.5); WHITE BLOOD COUNT 5.6 K/uL (4.8-10.8)
[2017-10-28 06:04] LABS: ALB/GLOB RATIO 1.1 (1.0-2.1); ALBUMIN 3.5 g/dL (3.5-5.0); ALT/SGPT 30 U/L (9-52); AST/SGOT 43 U/L (14-36); BLOOD UREA NITROGEN 10 mg/dl (7-17); CALCIUM 8.8 mg/dL (8.4-10.2); GFR AFRICAN-AMERICAN > 60; GFR NON-AFRICAN AMERICAN > 60
[2017-10-28] MEDS: Insulin Regular 100 units/ml SC SCH ×2 (07:10→22:12)
[2017-10-28] MEDS: Heparin 25,000units in D5W 25,000 UNITS/250 ML BAG IV SCH (07:14)
[2017-10-28] MEDS ORDERED: Pneumococcal 23-Valent Vaccine IM ONE (09:00)
[2017-10-28] MEDS ORDERED: Influenza Vaccine 18yr & older 0.5 ML/45 MCG SYR IM ONE (09:00)
[2017-10-28] MEDS ORDERED: cefTRIAXone (Rocephin) 1 gm Inj IM SCH (09:00)
[2017-10-28] MEDS: GlipiZIDE 10 mg SR Tab PO SCH ×2 (10:25→17:46)
[2017-10-28] MEDS: Multivitamin With Minerals Tab PO SCH (10:26)
--- NOTE | 2017-10-28 10:49 | CP.PCM.PN ---
Subjective - Date & Time of Evaluation Date of Evaluation: 10/28/17 Time of Evaluation: 10:45 - Subjective Subjective: Ms. Coleman was seen and examined at the bedside. She is alert, oriented speaks minimal lithuanian mainly Azeri. She is able to comprehend questions and able to answer questions appropriately. She denies any headache, dizziness, lightheadedness, nausea, or vomiting. The son claims of patient having poor appetitive since she was diagnose with infection. She is currently receiving heparin drip and maintenance IVF.She is able to follow simple commands. CTA of the head and neck showed no significant stenosis of the neck and unremakable CT angiography of the brain. There was no untoward events overnight. Objective - Vital Signs/Intake and Output Vital Signs (last 24 hours): Temp Pulse Resp BP Pulse Ox 97.2 F L 68 20 149/87 98 10/28/17 08:00 10/28/17 10:24 10/28/17 08:00 10/28/17 10:24 10/28/17 08:00 - Medications Medications: Current Medications Amlodipine Besylate (Norvasc) 5 mg PO DAILY [facility] Last Admin: 10/28/17 10:25 Dose: 5 mg Aspirin (Aspirin) 325 mg PO DAILY [facility] Last Admin: 10/28/17 10:23 Dose: 325 mg Carvedilol (Coreg) 25 mg PO BID [facility] Last Admin: 10/28/17 10:24 Dose: 25 mg Dextrose (Dextrose 50% Inj) 0 ml IV STAT PRN; Protocol PRN Reason: Hypoglycemia Protocol Dextrose (Glutose 15) 0 gm PO ONCE PRN; Protocol PRN Reason: Hypoglycemia Protocol Ferrous Sulfate (Feosol) 325 mg PO HS [facility] Last Admin: 10/27/17 22:06 Dose: Not Given Glipizide (Glucotrol Xl) 10 mg PO BID [facility] Last Admin: 10/28/17 10:25 Dose: 10 mg Glucagon (Glucagen Diagnostic Kit) 0 mg IM STAT PRN; Protocol PRN Reason: Hypoglycemia Protocol Heparin Sodium/Dextrose (Heparin 25,000 Units/250ml In D5w) 25,000 units in 250 mls @ 8 mls/hr IV .Q24H DANIELLE PRN Reason: Protocol Last Admin: 10/28/17 07:14 Dose: 8 mls/hr Ceftriaxone Sodium 1 gm/ (Sodium Chloride) 100 mls @ 100 mls/hr IVPB DAILY DANIELLE PRN Reason: Protocol Last Admin: 10/28/17 10:26 Dose: 100 mls/hr Insulin Human Regular (Humulin R) 0 units SC ACHS DANIELLE PRN Reason: Protocol Last Admin: 10/28/17 07:10 Dose: Not Given Multivitamins/Minerals (Therapeutic-M Tab) 1 tab PO DAILY DANIELLE Last Admin: 10/28/17 10:26 Dose: 1 tab Pravastatin Sodium (Pravachol) 40 mg PO HS [facility] Last Admin: 10/27/17 22:06 Dose: Not Given Sitagliptin Phosphate (Januvia) 25 mg PO DAILY [facility] Last Admin: 10/28/17 10:25 Dose: 25 mg - Labs Labs: 10/28/17 05:15 10/28/17 05:15 PT 14.5 Seconds (9.8-13.1) H 10/27/17 14:45 INR 1.3 (0.9-1.2) H 10/27/17 14:45 APTT 62.6 Seconds (25.6-37.1) H 10/28/17 05:15 - Constitutional Appears: No Acute Distress - Head Exam Head Exam: NORMAL INSPECTION - Neurological Exam Neurological Exam: Alert, Awake Neuro motor strength exam: Left Upper Extremity: 4, Right Upper Extremity: 4, Left Lower Extremity: 4, Right Lower Extremity: 4 Additional comments: She is able to answer questions appropriately and follow simple commands. Sensation remains intact. Assessment and Plan (1) Acute metabolic encephalopathy Assessment & Plan: Case discussed with Dr. Valadez, continue all current medical, physical, and occupational therapies. Recommend to treat underlying electrolyte imbalance, elevated troponin. MRI is not possible due to patient history of knee replacement. Status: Acute
--- NOTE | 2017-10-28 10:59 | PQF GENQUE ---
This form is a permanent part of the medical record 10/28/17 Dr. Gross, The attending physician is required to clarify conflicting documentation in the medical record. The following documentation is noted in the medical record: Please clarify if NSTEMI is ruled in or ruled out after work-up. H&P: NSTEMI Cardiology: TROPONIN IS LIKELY DUE TO SUBENDOCARDIAL ISCHEMIA GIVEN ELEVATED BP AND HR DURING CONFUSION Admitted with AMS. Has been on on Levaquin for a UTI. Noted in the ER with elevated troponin, GERALD, Hyponatremia and TIA Troponin: 0.408, 1.92, 1.26, 2.31 EKG: #[address] T wave abnormality, consider anterior ischemia EKG :#2: Sinus rhythm with 1st degree AV block Cannot rule out Inferior infarct , age undetermined , ST T wave abnormality, consider anterior ischemia Medication: Heparin Drip, ASA, Coreg, Pravastatin Clarification of your documentation is requested to better reflect the severity of illness and intensity of treatment of your patient. Indicators present [] Specify: [] [] Specify: [] [] Specify: [] [] Specify: [] Location in the medical record that reflects the above clinical findings: [] Treatment Provided: [] PHYSICIAN'S RESPONSE Based on your medical judgment of the clinical indicators outlined above please clarify the following: [] Practitioner response [] If unable to determine, please check the box, sign and date. Present On Admission (POA) Indicator: [] Present at the time of admission [] Not present at the time of admission [] Clinically Undetermined In responding to this query, please exercise your independent professional judgment. The fact that a question is asked does not imply that any particular answer is desired or expected. Thank you for your clarification on this documentation. If you have any questions please call:ext [phone] * Thank you, Tawny Brown RN CDMP [facility]
--- NOTE | 2017-10-28 11:28 | CARD ---
APPROVED REPORT EKG Measurement Heart [id number] <Conclusion> Sinus rhythm with sinus arrhythmia with 1st degree AV block Nonspecific ST and T wave abnormality Prolonged QT Abnormal ECG
--- NOTE | 2017-10-28 18:07 | CP.PCM.PN ---
Subjective - Date & Time of Evaluation Date of Evaluation: 10/28/17 Time of Evaluation: 18:07 Objective - Vital Signs/Intake and Output Vital Signs (last 24 hours): Temp Pulse Resp BP Pulse Ox 97.6 F 67 16 128/75 97 10/28/17 16:28 10/28/17 17:45 10/28/17 16:28 10/28/17 17:45 10/28/17 16:28 - Medications Medications: Current Medications Amlodipine Besylate (Norvasc) 5 mg PO DAILY [facility] Last Admin: 10/28/17 10:25 Dose: 5 mg Aspirin (Aspirin) 325 mg PO DAILY [facility] Last Admin: 10/28/17 10:23 Dose: 325 mg Carvedilol (Coreg) 25 mg PO BID [facility] Last Admin: 10/28/17 17:45 Dose: 25 mg Dextrose (Dextrose 50% Inj) 0 ml IV STAT PRN; Protocol PRN Reason: Hypoglycemia Protocol Dextrose (Glutose 15) 0 gm PO ONCE PRN; Protocol PRN Reason: Hypoglycemia Protocol Enoxaparin Sodium (Lovenox) 70 mg SC Q12 [facility] PRN Reason: Protocol Ferrous Sulfate (Feosol) 325 mg PO HS [facility] Last Admin: 10/27/17 22:06 Dose: Not Given Glipizide (Glucotrol Xl) 10 mg PO BID [facility] Last Admin: 10/28/17 17:46 Dose: 10 mg Glucagon (Glucagen Diagnostic Kit) 0 mg IM STAT PRN; Protocol PRN Reason: Hypoglycemia Protocol Ceftriaxone Sodium 1 gm/ (Sodium Chloride) 100 mls @ 100 mls/hr IVPB DAILY [facility] PRN Reason: Protocol Last Admin: 10/28/17 10:26 Dose: 100 mls/hr Insulin Human Regular (Humulin R) 0 units SC ACHS [facility] PRN Reason: Protocol Last Admin: 10/28/17 07:10 Dose: Not Given Multivitamins/Minerals (Therapeutic-M Tab) 1 tab PO DAILY [facility] Last Admin: 10/28/17 10:26 Dose: 1 tab Pravastatin Sodium (Pravachol) 40 mg PO HS [facility] Last Admin: 10/27/17 22:06 Dose: Not Given Sitagliptin Phosphate (Januvia) 25 mg PO DAILY [facility] Last Admin: 10/28/17 10:25 Dose: 25 mg - Labs Labs: 10/28/17 05:15 10/28/17 05:15 PT 14.5 Seconds (9.8-13.1) H 10/27/17 14:45 INR 1.3 (0.9-1.2) H 10/27/17 14:45 APTT 62.6 Seconds (25.6-37.1) H 10/28/17 05:15 Assessment and Plan (1) Hyponatremia Status: Acute (2) Altered mental state Status: Acute (3) Elevated troponin Status: Acute (4) Hypokalemia Status: Acute - Assessment and Plan (Free Text) Plan: spoke with dr trejo (pts manager car). pt had mild cad on cath 3 years ago. pt is a diabetic. given troponins the plan is for cardiac cath on Tuesday.
[2017-10-28] MEDS: Enoxaparin 80 mg Syringe SC SCH (22:07)
[2017-10-28] MEDS: Pravastatin Sodium 40 MG TAB PO SCH (22:07)
[2017-10-29] MEDS: Insulin Regular 100 units/ml SC SCH ×4 (07:00→22:13)
[2017-10-29 08:02] LABS: BLOOD UREA NITROGEN 6 mg/dl (7-17); CALCIUM 8.4 mg/dL (8.4-10.2); GFR AFRICAN-AMERICAN > 60; GFR NON-AFRICAN AMERICAN > 60
[2017-10-29] MEDS: GlipiZIDE 10 mg SR Tab PO SCH ×2 (10:00→17:08)
[2017-10-29] MEDS: Enoxaparin 80 mg Syringe SC SCH ×2 (10:01→22:12)
[2017-10-29] MEDS: Multivitamin With Minerals Tab PO SCH (10:03)
--- NOTE | 2017-10-29 16:13 | CP.PCM.PN ---
Objective - Vital Signs/Intake and Output Vital Signs (last 24 hours): Temp Pulse Resp BP Pulse Ox 97.7 F 60 20 127/70 99 10/29/17 13:00 10/29/17 13:00 10/29/17 13:00 10/29/17 13:00 10/29/17 13:00 - Medications Medications: Current Medications Amlodipine Besylate (Norvasc) 5 mg PO DAILY [facility] Last Admin: 10/29/17 10:02 Dose: 5 mg Aspirin (Aspirin) 325 mg PO DAILY [facility] Last Admin: 10/29/17 10:00 Dose: 325 mg Carvedilol (Coreg) 25 mg PO BID [facility] Last Admin: 10/29/17 10:00 Dose: 25 mg Dextrose (Dextrose 50% Inj) 0 ml IV STAT PRN; Protocol PRN Reason: Hypoglycemia Protocol Dextrose (Glutose 15) 0 gm PO ONCE PRN; Protocol PRN Reason: Hypoglycemia Protocol Enoxaparin Sodium (Lovenox) 70 mg SC Q12 [facility] PRN Reason: Protocol Last Admin: 10/29/17 10:01 Dose: 70 mg Ferrous Sulfate (Feosol) 325 mg PO HS [facility] Last Admin: 10/28/17 22:07 Dose: 325 mg Glipizide (Glucotrol Xl) 10 mg PO BID [facility] Last Admin: 10/29/17 10:00 Dose: 10 mg Glucagon (Glucagen Diagnostic Kit) 0 mg IM STAT PRN; Protocol PRN Reason: Hypoglycemia Protocol Ceftriaxone Sodium 1 gm/ (Sodium Chloride) 100 mls @ 100 mls/hr IVPB DAILY [facility] PRN Reason: Protocol Last Admin: 10/29/17 10:03 Dose: 100 mls/hr Insulin Human Regular (Humulin R) 0 units SC ACHS [facility] PRN Reason: Protocol Last Admin: 10/29/17 12:19 Dose: 1 unit Multivitamins/Minerals (Therapeutic-M Tab) 1 tab PO DAILY [facility] Last Admin: 10/29/17 10:03 Dose: 1 tab Pravastatin Sodium (Pravachol) 40 mg PO HS [facility] Last Admin: 10/28/17 22:07 Dose: 40 mg Sitagliptin Phosphate (Januvia) 25 mg PO DAILY [facility] Last Admin: 10/29/17 10:01 Dose: 25 mg - Labs Labs: 10/28/17 05:15 10/29/17 06:52 PT 14.5 Seconds (9.8-13.1) H 10/27/17 14:45 INR 1.3 (0.9-1.2) H 10/27/17 14:45 APTT 80.9 Seconds (25.6-37.1) H D 10/29/17 06:52 Assessment and Plan (1) Hyponatremia Status: Acute (2) Altered mental state Status: Acute (3) Elevated troponin Status: Acute (4) Hypokalemia Status: Acute - Assessment and Plan (Free Text) Assessment: RECHECK TROP CATH TUESDAY PT HAD CATH 3 YEARS AGO AT [place] WHICH REVEALED MILD CAD. SHE IS DIABETIC.
[2017-10-29] MEDS: Pravastatin Sodium 40 MG TAB PO SCH (22:13)
--- NOTE | 2017-10-30 00:05 | CP.PCM.PN ---
Subjective - Date & Time of Evaluation Date of Evaluation: 10/28/17 Time of Evaluation: 18:00 Objective - Vital Signs/Intake and Output Vital Signs (last 24 hours): Temp Pulse Resp BP Pulse Ox 97.7 F 63 16 123/74 99 10/29/17 21:00 10/29/17 21:00 10/29/17 21:00 10/29/17 21:00 10/29/17 21:00 - Medications Medications: Current Medications Amlodipine Besylate (Norvasc) 5 mg PO DAILY [facility] Last Admin: 10/29/17 10:02 Dose: 5 mg Aspirin (Aspirin) 325 mg PO DAILY [facility] Last Admin: 10/29/17 10:00 Dose: 325 mg Carvedilol (Coreg) 25 mg PO BID [facility] Last Admin: 10/29/17 17:08 Dose: 25 mg Dextrose (Dextrose 50% Inj) 0 ml IV STAT PRN; Protocol PRN Reason: Hypoglycemia Protocol Dextrose (Glutose 15) 0 gm PO ONCE PRN; Protocol PRN Reason: Hypoglycemia Protocol Enoxaparin Sodium (Lovenox) 70 mg SC Q12 [facility] PRN Reason: Protocol Last Admin: 10/29/17 22:12 Dose: 70 mg Ferrous Sulfate (Feosol) 325 mg PO HS [facility] Last Admin: 10/29/17 22:13 Dose: 325 mg Glipizide (Glucotrol Xl) 10 mg PO BID [facility] Last Admin: 10/29/17 17:08 Dose: 10 mg Glucagon (Glucagen Diagnostic Kit) 0 mg IM STAT PRN; Protocol PRN Reason: Hypoglycemia Protocol Ceftriaxone Sodium 1 gm/ (Sodium Chloride) 100 mls @ 100 mls/hr IVPB DAILY [facility] PRN Reason: Protocol Last Admin: 10/29/17 10:03 Dose: 100 mls/hr Insulin Human Regular (Humulin R) 0 units SC ACHS [facility] PRN Reason: Protocol Last Admin: 10/29/17 22:13 Dose: Not Given Multivitamins/Minerals (Therapeutic-M Tab) 1 tab PO DAILY [facility] Last Admin: 10/29/17 10:03 Dose: 1 tab Pravastatin Sodium (Pravachol) 40 mg PO HS [facility] Last Admin: 10/29/17 22:13 Dose: 40 mg Sitagliptin Phosphate (Januvia) 25 mg PO DAILY [facility] Last Admin: 10/29/17 10:01 Dose: 25 mg - Labs Labs: 10/28/17 05:15 10/29/17 06:52 PT 14.5 Seconds (9.8-13.1) H 10/27/17 14:45 INR 1.3 (0.9-1.2) H 10/27/17 14:45 APTT 80.9 Seconds (25.6-37.1) H D 10/29/17 06:52 Assessment and Plan (1) NSTEMI (non-ST elevated myocardial infarction) Status: Acute (2) GERALD (acute kidney injury) Status: Acute (3) Hypokalemia Status: Acute (4) Hyponatremia Status: Acute (5) TIA (transient ischemic attack) Status: Acute
--- NOTE | 2017-10-30 00:06 | CP.PCM.PN ---
Subjective - Date & Time of Evaluation Date of Evaluation: 10/29/17 Time of Evaluation: 18:15 Objective - Vital Signs/Intake and Output Vital Signs (last 24 hours): Temp Pulse Resp BP Pulse Ox 97.7 F 63 16 123/74 99 10/29/17 21:00 10/29/17 21:00 10/29/17 21:00 10/29/17 21:00 10/29/17 21:00 - Medications Medications: Current Medications Amlodipine Besylate (Norvasc) 5 mg PO DAILY [facility] Last Admin: 10/29/17 10:02 Dose: 5 mg Aspirin (Aspirin) 325 mg PO DAILY [facility] Last Admin: 10/29/17 10:00 Dose: 325 mg Carvedilol (Coreg) 25 mg PO BID [facility] Last Admin: 10/29/17 17:08 Dose: 25 mg Dextrose (Dextrose 50% Inj) 0 ml IV STAT PRN; Protocol PRN Reason: Hypoglycemia Protocol Dextrose (Glutose 15) 0 gm PO ONCE PRN; Protocol PRN Reason: Hypoglycemia Protocol Enoxaparin Sodium (Lovenox) 70 mg SC Q12 [facility] PRN Reason: Protocol Last Admin: 10/29/17 22:12 Dose: 70 mg Ferrous Sulfate (Feosol) 325 mg PO HS [facility] Last Admin: 10/29/17 22:13 Dose: 325 mg Glipizide (Glucotrol Xl) 10 mg PO BID [facility] Last Admin: 10/29/17 17:08 Dose: 10 mg Glucagon (Glucagen Diagnostic Kit) 0 mg IM STAT PRN; Protocol PRN Reason: Hypoglycemia Protocol Ceftriaxone Sodium 1 gm/ (Sodium Chloride) 100 mls @ 100 mls/hr IVPB DAILY [facility] PRN Reason: Protocol Last Admin: 10/29/17 10:03 Dose: 100 mls/hr Insulin Human Regular (Humulin R) 0 units SC ACHS [facility] PRN Reason: Protocol Last Admin: 10/29/17 22:13 Dose: Not Given Multivitamins/Minerals (Therapeutic-M Tab) 1 tab PO DAILY [facility] Last Admin: 10/29/17 10:03 Dose: 1 tab Pravastatin Sodium (Pravachol) 40 mg PO HS [facility] Last Admin: 10/29/17 22:13 Dose: 40 mg Sitagliptin Phosphate (Januvia) 25 mg PO DAILY [facility] Last Admin: 10/29/17 10:01 Dose: 25 mg - Labs Labs: 10/28/17 05:15 10/29/17 06:52 PT 14.5 Seconds (9.8-13.1) H 10/27/17 14:45 INR 1.3 (0.9-1.2) H 10/27/17 14:45 APTT 80.9 Seconds (25.6-37.1) H D 10/29/17 06:52 Assessment and Plan (1) NSTEMI (non-ST elevated myocardial infarction) Status: Acute (2) GERALD (acute kidney injury) Status: Acute (3) Hypokalemia Status: Acute (4) Hyponatremia Status: Acute (5) TIA (transient ischemic attack) Status: Acute
[2017-10-30 08:08] LABS: BASO % 0.8 % (0.0-2.0); EOS # 0.3 K/uL (0.0-0.7); EOS % 5.4 % (0.0-4.0); HEMOGLOBIN 9.1 g/dL (12.0-16.0); LYMPH # 1.1 K/uL (1.0-4.3); LYMPH % 20.6 % (20.0-40.0); MEAN CELL VOLUME 76.7 fl (81.0-99.0); MEAN CORPUSCULAR HEMOGLOBIN 25.3 pg (27.0-31.0); MEAN PLATELET VOLUME 8.1 fl (7.2-11.7); MONO # 0.5 K/uL (0.0-0.8); MONO % 9.6 % (0.0-10.0); NEUT # 3.3 K/uL (1.8-7.0); NEUT % 63.6 % (50.0-75.0); RBC 3.62 Mil/uL (3.80-5.20); RED CELL DISTRIBUTION WIDTH 14.9 % (11.5-14.5); WHITE BLOOD COUNT 5.2 K/uL (4.8-10.8)
[2017-10-30 08:21] LABS: BLOOD UREA NITROGEN 6 mg/dl (7-17); CALCIUM 8.7 mg/dL (8.4-10.2); GFR AFRICAN-AMERICAN > 60; GFR NON-AFRICAN AMERICAN > 60
[2017-10-30] MEDS: Enoxaparin 80 mg Syringe SC SCH ×2 (09:00→22:12)
[2017-10-30] MEDS: Insulin Regular 100 units/ml SC SCH ×5 (09:01→22:11)
[2017-10-30] MEDS: Multivitamin With Minerals Tab PO SCH (09:01)
[2017-10-30] MEDS: GlipiZIDE 10 mg SR Tab PO SCH ×2 (09:01→16:50)
--- NOTE | 2017-10-30 10:18 | CP.PCM.PN ---
Subjective - Date & Time of Evaluation Date of Evaluation: 10/30/17 Time of Evaluation: 10:15 - Subjective Subjective: Ms. Wesley was seen and examined at the bedside. She is alert, oriented . She denies any headache, dizziness. lightheadedness, nausea, or vomiting. She is able to follow simple commands. She is sitting at the side of the bed in steady posture. There was no untoward events overnight. Objective - Vital Signs/Intake and Output Vital Signs (last 24 hours): Temp Pulse Resp BP Pulse Ox 98 F 69 20 154/69 H 98 10/30/17 08:00 10/30/17 09:01 10/30/17 08:00 10/30/17 09:01 10/30/17 08:00 - Medications Medications: Current Medications Amlodipine Besylate (Norvasc) 5 mg PO DAILY [facility] Last Admin: 10/30/17 09:00 Dose: 5 mg Aspirin (Aspirin) 325 mg PO DAILY [facility] Last Admin: 10/30/17 09:01 Dose: 325 mg Carvedilol (Coreg) 25 mg PO BID [facility] Last Admin: 10/30/17 09:01 Dose: 25 mg Dextrose (Dextrose 50% Inj) 0 ml IV STAT PRN; Protocol PRN Reason: Hypoglycemia Protocol Dextrose (Glutose 15) 0 gm PO ONCE PRN; Protocol PRN Reason: Hypoglycemia Protocol Enoxaparin Sodium (Lovenox) 70 mg SC Q12 [facility] PRN Reason: Protocol Last Admin: 10/30/17 09:00 Dose: 70 mg Ferrous Sulfate (Feosol) 325 mg PO HS [facility] Last Admin: 10/29/17 22:13 Dose: 325 mg Glipizide (Glucotrol Xl) 10 mg PO BID [facility] Last Admin: 10/30/17 09:01 Dose: 10 mg Glucagon (Glucagen Diagnostic Kit) 0 mg IM STAT PRN; Protocol PRN Reason: Hypoglycemia Protocol Ceftriaxone Sodium 1 gm/ (Sodium Chloride) 100 mls @ 100 mls/hr IVPB DAILY [facility] PRN Reason: Protocol Last Admin: 10/30/17 09:02 Dose: 100 mls/hr Insulin Human Regular (Humulin R) 0 units SC ACHS [facility] PRN Reason: Protocol Last Admin: 10/30/17 09:01 Dose: Not Given Multivitamins/Minerals (Therapeutic-M Tab) 1 tab PO DAILY [facility] Last Admin: 10/30/17 09:01 Dose: 1 tab Pravastatin Sodium (Pravachol) 40 mg PO HS [facility] Last Admin: 10/29/17 22:13 Dose: 40 mg Sitagliptin Phosphate (Januvia) 25 mg PO DAILY [facility] Last Admin: 10/30/17 09:01 Dose: 25 mg - Labs Labs: 10/30/17 07:00 10/30/17 07:00 PT 14.5 Seconds (9.8-13.1) H 10/27/17 14:45 INR 1.3 (0.9-1.2) H 10/27/17 14:45 APTT 80.9 Seconds (25.6-37.1) H D 10/29/17 06:52 - Constitutional Appears: No Acute Distress - Head Exam Head Exam: NORMAL INSPECTION - Neurological Exam Neurological Exam: Alert, Awake, Oriented x3 Neuro motor strength exam: Left Upper Extremity: 5, Right Upper Extremity: 5, Left Lower Extremity: 5, Right Lower Extremity: 5 Additional comments: Neurological unchanged from previous examination. Assessment and Plan (1) Acute metabolic encephalopathy Assessment & Plan: Case discussed with Dr. Valadez, continue all current medical, physical and occupational therapies. Recommend to treat any metabolic abnormality. Status: Acute
[2017-10-30] MEDS ORDERED: Magnesium Sulfate 2 gm/50 ml 2 GM/50 ML BAG IVPB ONE ×2 (12:01→16:14)
--- NOTE | 2017-10-30 16:30 | CP.PCM.PN ---
Subjective - Date & Time of Evaluation Date of Evaluation: 10/30/17 Time of Evaluation: 16:27 Objective - Vital Signs/Intake and Output Vital Signs (last 24 hours): Temp Pulse Resp BP Pulse Ox 97.7 F 60 18 146/75 98 10/30/17 13:00 10/30/17 13:00 10/30/17 13:00 10/30/17 13:00 10/30/17 13:00 - Medications Medications: Current Medications Amlodipine Besylate (Norvasc) 10 mg PO DAILY [facility] Aspirin (Aspirin) 325 mg PO DAILY [facility] Last Admin: 10/30/17 09:01 Dose: 325 mg Carvedilol (Coreg) 25 mg PO BID [facility] Last Admin: 10/30/17 09:01 Dose: 25 mg Dextrose (Dextrose 50% Inj) 0 ml IV STAT PRN; Protocol PRN Reason: Hypoglycemia Protocol Dextrose (Glutose 15) 0 gm PO ONCE PRN; Protocol PRN Reason: Hypoglycemia Protocol Enoxaparin Sodium (Lovenox) 70 mg SC Q12 [facility] PRN Reason: Protocol Stop: 10/30/17 23:59 Last Admin: 10/30/17 09:00 Dose: 70 mg Ferrous Sulfate (Feosol) 325 mg PO HS [facility] Last Admin: 10/29/17 22:13 Dose: 325 mg Glipizide (Glucotrol Xl) 10 mg PO BID [facility] Last Admin: 10/30/17 09:01 Dose: 10 mg Glucagon (Glucagen Diagnostic Kit) 0 mg IM STAT PRN; Protocol PRN Reason: Hypoglycemia Protocol Ceftriaxone Sodium 1 gm/ (Sodium Chloride) 100 mls @ 100 mls/hr IVPB DAILY [facility] PRN Reason: Protocol Last Admin: 10/30/17 09:02 Dose: 100 mls/hr Magnesium Sulfate (Magnesium Sulfate 2 Gm/50 Ml Water) 2 gm in 50 mls @ 50 mls/ hr IVPB ONCE ONE PRN Reason: 2 GM/HR Stop: 10/30/17 17:13 Insulin Human Regular (Humulin R) 0 units SC ACHS [facility] PRN Reason: Protocol Last Admin: 10/30/17 12:34 Dose: 1 unit Multivitamins/Minerals (Therapeutic-M Tab) 1 tab PO DAILY [facility] Last Admin: 10/30/17 09:01 Dose: 1 tab Pravastatin Sodium (Pravachol) 40 mg PO HS [facility] Last Admin: 10/29/17 22:13 Dose: 40 mg Sitagliptin Phosphate (Januvia) 25 mg PO DAILY [facility] Last Admin: 10/30/17 09:01 Dose: 25 mg - Labs Labs: 10/30/17 07:00 10/30/17 07:00 PT 14.5 Seconds (9.8-13.1) H 10/27/17 14:45 INR 1.3 (0.9-1.2) H 10/27/17 14:45 APTT 80.9 Seconds (25.6-37.1) H D 10/29/17 06:52 Assessment and Plan (1) NSTEMI (non-ST elevated myocardial infarction) Status: Acute (2) GERALD (acute kidney injury) Status: Acute (3) Hypokalemia Status: Acute (4) Hyponatremia Status: Acute (5) TIA (transient ischemic attack) Status: Acute
--- NOTE | 2017-10-30 17:48 | CP.PCM.PN ---
Subjective - Date & Time of Evaluation Date of Evaluation: 10/30/17 Time of Evaluation: 17:48 - Subjective Subjective: pt at baseline mental state. feels better. trop decreasing. Objective - Vital Signs/Intake and Output Vital Signs (last 24 hours): Temp Pulse Resp BP Pulse Ox 97.7 F 63 16 138/69 100 10/30/17 16:43 10/30/17 16:50 10/30/17 16:43 10/30/17 16:50 10/30/17 16:43 - Medications Medications: Current Medications Amlodipine Besylate (Norvasc) 10 mg PO DAILY [facility] Aspirin (Aspirin) 325 mg PO DAILY [facility] Last Admin: 10/30/17 09:01 Dose: 325 mg Carvedilol (Coreg) 25 mg PO BID [facility] Last Admin: 10/30/17 16:50 Dose: 25 mg Dextrose (Dextrose 50% Inj) 0 ml IV STAT PRN; Protocol PRN Reason: Hypoglycemia Protocol Dextrose (Glutose 15) 0 gm PO ONCE PRN; Protocol PRN Reason: Hypoglycemia Protocol Enoxaparin Sodium (Lovenox) 70 mg SC Q12 [facility] PRN Reason: Protocol Stop: 10/30/17 23:59 Last Admin: 10/30/17 09:00 Dose: 70 mg Ferrous Sulfate (Feosol) 325 mg PO HS [facility] Last Admin: 10/29/17 22:13 Dose: 325 mg Glipizide (Glucotrol Xl) 10 mg PO BID [facility] Last Admin: 10/30/17 16:50 Dose: 10 mg Glucagon (Glucagen Diagnostic Kit) 0 mg IM STAT PRN; Protocol PRN Reason: Hypoglycemia Protocol Ceftriaxone Sodium 1 gm/ (Sodium Chloride) 100 mls @ 100 mls/hr IVPB DAILY [facility] PRN Reason: Protocol Last Admin: 10/30/17 09:02 Dose: 100 mls/hr Insulin Human Regular (Humulin R) 0 units SC ACHS [facility] PRN Reason: Protocol Last Admin: 10/30/17 16:49 Dose: Not Given Multivitamins/Minerals (Therapeutic-M Tab) 1 tab PO DAILY [facility] Last Admin: 10/30/17 09:01 Dose: 1 tab Pravastatin Sodium (Pravachol) 40 mg PO HS [facility] Last Admin: 10/29/17 22:13 Dose: 40 mg Sitagliptin Phosphate (Januvia) 25 mg PO DAILY [facility] Last Admin: 10/30/17 09:01 Dose: 25 mg - Labs Labs: 10/30/17 07:00 10/30/17 07:00 PT 14.5 Seconds (9.8-13.1) H 10/27/17 14:45 INR 1.3 (0.9-1.2) H 10/27/17 14:45 APTT 80.9 Seconds (25.6-37.1) H D 10/29/17 06:52 - Constitutional Appears: Well - Head Exam Head Exam: ATRAUMATIC, NORMAL INSPECTION, NORMOCEPHALIC - Eye Exam Eye Exam: EOMI, Normal appearance, PERRL. absent: Conjunctival injection, Nystagmus, Periorbital swelling, Periorbital tenderness, Scleral icterus Pupil Exam: NORMAL ACCOMODATION, PERRL - ENT Exam ENT Exam: Mucous Membranes Moist, Normal Exam. absent: Mucous Membranes Dry, Normal External Ear Exam, Normal Oropharynx, TM's Normal Bilaterally - Neck Exam Neck Exam: Full ROM, Normal Inspection - Respiratory Exam Respiratory Exam: Clear to Ausculation Bilateral, NORMAL BREATHING PATTERN. absent: Accessory Muscle Use, Chest Wall Tenderness, Decreased Breath Sounds, Prolonged Expiratory Phase, Rales, Rhonchi, Wheezes, Respiratory Distress, Stridor - Cardiovascular Exam Cardiovascular Exam: REGULAR RHYTHM, +S1, +S2, Murmur. absent: Bradycardia, Tachycardia, Clicks, Diastolic murmur, Gallop, Irregular Rhythm, JVD, RRR, Rubs , +S4 - GI/Abdominal Exam GI & Abdominal Exam: Soft, Normal Bowel Sounds. absent: Bruit, Distended, Firm , Guarding, Rigid, Tenderness, Diminished Bowel Sounds, Hernia, Hyperactive Bowel Sounds, Hypoactive Bowel Sounds, Organomegaly, Pulsatile Mass, Rebound, Mass - Rectal Exam Rectal Exam: Deferred - Extremities Exam Extremities Exam: Pedal Edema Additional comments: b/l foot rash with scaling on plantar aspects. - Back Exam Back Exam: NORMAL INSPECTION. absent: CVA tenderness (L), CVA tenderness (R), Full ROM, muscle spasm, paraspinal tenderness, rash noted, tenderness, vertebral tenderness - Neurological Exam Neurological Exam: Alert, Awake, CN II-XII Intact, Normal Gait, Oriented x3. absent: Abnormal Gait, Altered, Motor Sensory Deficit, Reflexes Normal - Psychiatric Exam Psychiatric exam: Normal Affect, Normal Mood. absent: Agitated, Anxious, Depressed, Flat Affect, Homicidal Ideation, Manic, Suicidal Ideation - Skin Skin Exam: Dry, Intact, Normal Color, Warm. absent: Abrasion, Cyanosis, Diaphoretic, Erythema, Mottled, Pallor, Pallor, Petechiae, Rash, Urticaria, Vesicles Assessment and Plan (1) Hyponatremia Status: Acute (2) Altered mental state Status: Acute (3) Elevated troponin Status: Acute (4) Hypokalemia Status: Acute - Assessment and Plan (Free Text) Plan: family asked to have cardiac cath at [facility]. Plan for cath tomorrow. npo p mn. hold lovenox after mn.
[2017-10-30] MEDS: Pravastatin Sodium 40 MG TAB PO SCH (22:12)
[2017-10-31 00:06] VITALS: RESP 18
[2017-10-31 06:02] LABS: BLOOD UREA NITROGEN 4 mg/dl (7-17); CALCIUM 8.7 mg/dL (8.4-10.2); GFR AFRICAN-AMERICAN > 60; GFR NON-AFRICAN AMERICAN > 60; MAGNESIUM 1.1 MG/DL (1.6-2.3)
[2017-10-31 06:04] LABS: BASO % 0.8 % (0.0-2.0); EOS # 0.3 K/uL (0.0-0.7); EOS % 6.1 % (0.0-4.0); HEMOGLOBIN 9.2 g/dL (12.0-16.0); LYMPH # 1.2 K/uL (1.0-4.3); LYMPH % 23.1 % (20.0-40.0); MEAN CELL VOLUME 76.1 fl (81.0-99.0); MEAN CORPUSCULAR HEMOGLOBIN 25.9 pg (27.0-31.0); MEAN PLATELET VOLUME 8.4 fl (7.2-11.7); MONO # 0.5 K/uL (0.0-0.8); MONO % 9.2 % (0.0-10.0); NEUT # 3.2 K/uL (1.8-7.0); NEUT % 60.8 % (50.0-75.0); NRBC % 0.3 % (0.0-0.0); RBC 3.56 Mil/uL (3.80-5.20); RED CELL DISTRIBUTION WIDTH 14.9 % (11.5-14.5); WHITE BLOOD COUNT 5.2 K/uL (4.8-10.8)
[2017-10-31] MEDS ORDERED: Magnesium Sulfate 2 gm/50 ml 2 GM/50 ML BAG IV ONE (09:00)
[2017-10-31] MEDS: GlipiZIDE 10 mg SR Tab PO SCH (09:02)
[2017-10-31] MEDS: Insulin Regular 100 units/ml SC SCH ×2 (09:02→21:52)
--- NOTE | 2017-10-31 09:06 | EEG ---
ELECTROENCEPHALOGRAM REPORT DATE: 10/28/2017 TECHNICAL INFORMATION: Electrodes were placed according to the 10-20 International electrode system by cardiovascular radiologic technologist. Total of 23 electrodes (21 EEG and 2 EKG) were placed. EEG activity was digitally recorded referentially to P1/P2 or A1/A2 electrodes. Continuous monitoring with EEG was performed using digital analysis for spike detection. The [employer] spike and seizure detection algorithms were used for digital EEG analysis throughout the monitoring period to screen the EEG in real-time and cassandra the data file with pointers to electrographic seizures and interictal discharges. EEG was screened for electrographic seizures and interictal discharges by a technologist. Physician, epileptologist reviewed detections as well as extensive random samples and whole EEG study in detail. Digital EEG Analysis: Was carried out including FFT (Fast Fourier Transform), R2D2 (Rhythmicity Run Detection and Display), Relative Asymmetry Spectrogram, and voltage plot by the [employer]. The qualitative EEG analysis and the voltage plot mapping were used for detection of foci of paroxysmal and abnormal electrical cortical activity. GENERAL DESCRIPTION: Background Rhythm: There is a well-formed, 8-10 Hz posterior dominant rhythm that is reactive, symmetric, and attenuates with eye opening. There was a normal amount of frontal beta noted bilaterally. There is no sleep recorded. ACTIVATION PROCEDURES: Photic stimulation: There is no driving noted. Hyperventilation: There is slowing noted that is self-remitted. ABNORMAL ACTIVITY: There are no focal epileptiform discharges noted. No clinical or subclinical seizures noted. IMPRESSION: This is a normal awake and drowsy electroencephalogram. Clinical correlation is required. There is intermittent generalized slowing. Raciel Valadez MD
[2017-10-31] MEDS: Multivitamin With Minerals Tab PO SCH (09:08)
--- NOTE | 2017-10-31 09:45 | CP.PCM.PN ---
Subjective - Date & Time of Evaluation Date of Evaluation: 10/31/17 Time of Evaluation: 09:43 - Subjective Subjective: Ms. Coleman was seen and examined at the bedside. She is alert, oriented, She is ambulating in the hallway near her room with steady gait. She denies any headache, dizziness, lightheadedness, nausea, or vomiting. She is able to follow simple commands. There was no untoward events overnight. Objective - Vital Signs/Intake and Output Vital Signs (last 24 hours): Temp Pulse Resp BP Pulse Ox 98 F 74 18 151/80 H 99 10/31/17 05:11 10/31/17 09:07 10/31/17 05:11 10/31/17 09:07 10/31/17 05:11 - Medications Medications: Current Medications Amlodipine Besylate (Norvasc) 10 mg PO DAILY [facility] Last Admin: 10/31/17 09:07 Dose: 10 mg Aspirin (Aspirin) 325 mg PO DAILY [facility] Last Admin: 10/31/17 09:06 Dose: 325 mg Carvedilol (Coreg) 25 mg PO BID [facility] Last Admin: 10/31/17 09:07 Dose: 25 mg Dextrose (Dextrose 50% Inj) 0 ml IV STAT PRN; Protocol PRN Reason: Hypoglycemia Protocol Dextrose (Glutose 15) 0 gm PO ONCE PRN; Protocol PRN Reason: Hypoglycemia Protocol Ferrous Sulfate (Feosol) 325 mg PO HS [facility] Last Admin: 10/30/17 22:12 Dose: 325 mg Glipizide (Glucotrol Xl) 10 mg PO BID [facility] Last Admin: 10/31/17 09:02 Dose: Not Given Glucagon (Glucagen Diagnostic Kit) 0 mg IM STAT PRN; Protocol PRN Reason: Hypoglycemia Protocol Ceftriaxone Sodium 1 gm/ (Sodium Chloride) 100 mls @ 100 mls/hr IVPB DAILY [facility] PRN Reason: Protocol Last Admin: 10/31/17 09:08 Dose: 100 mls/hr Magnesium Sulfate (Magnesium Sulfate 2 Gm/50 Ml Water) 2 gm in 50 mls @ 50 mls/ hr IV ONCE ONE PRN Reason: 2 GM/HR Stop: 10/31/17 09:59 Last Admin: 10/31/17 09:05 Dose: 50 mls/hr Insulin Human Regular (Humulin R) 0 units SC [facility] PRN Reason: Protocol Last Admin: 10/31/17 09:02 Dose: Not Given Multivitamins/Minerals (Therapeutic-M Tab) 1 tab PO DAILY [facility] Last Admin: 10/31/17 09:08 Dose: Not Given Pravastatin Sodium (Pravachol) 40 mg PO HS [facility] Last Admin: 10/30/17 22:12 Dose: 40 mg Sitagliptin Phosphate (Januvia) 25 mg PO DAILY [facility] Last Admin: 10/31/17 09:02 Dose: Not Given - Labs Labs: 10/31/17 04:20 10/31/17 04:20 PT 14.5 Seconds (9.8-13.1) H 10/27/17 14:45 INR 1.3 (0.9-1.2) H 10/27/17 14:45 APTT 80.9 Seconds (25.6-37.1) H D 10/29/17 06:52 - Constitutional Appears: No Acute Distress - Head Exam Head Exam: NORMAL INSPECTION - Neurological Exam Neurological Exam: Alert, Awake, Oriented x3 Neuro motor strength exam: Left Upper Extremity: 5, Right Upper Extremity: 5, Left Lower Extremity: 5, Right Lower Extremity: 5 Additional comments: Neurological uncahnged from previous examination. Assessment and Plan (1) Acute metabolic encephalopathy Assessment & Plan: Case discussed with Dr. Larson, continue all current medical, physical, and occupational therapies.There is no new recommendations from neurology. Status: Acute
[2017-10-31 14:59] LABS: IRON 49 ug/dL (37-170)
[2017-10-31 15:09] LABS: % IRON SATURATION 19 % (20-55); TOTAL IRON BINDING CAPACITY 262 ug/dL (250-450)
[2017-10-31 21:31] VITALS: BP 156/88; PULSE 60; TEMP 97.5; O2SAT 100
[2017-10-31] MEDS: Pravastatin Sodium 40 MG TAB PO SCH (21:50)
--- NOTE | 2017-10-31 23:34 | CP.PCM.PN ---
Subjective - Date & Time of Evaluation Date of Evaluation: 10/31/17 Time of Evaluation: 18:45 Objective - Vital Signs/Intake and Output Vital Signs (last 24 hours): Temp Pulse Resp BP Pulse Ox 97.5 F L 60 18 156/88 H 100 10/31/17 21:30 10/31/17 21:30 10/31/17 21:30 10/31/17 21:30 10/31/17 21:30 - Medications Medications: Current Medications Amlodipine Besylate (Norvasc) 10 mg PO DAILY [facility] Last Admin: 10/31/17 09:07 Dose: 10 mg Aspirin (Aspirin) 325 mg PO DAILY [facility] Last Admin: 10/31/17 09:06 Dose: 325 mg Carvedilol (Coreg) 25 mg PO BID [facility] Last Admin: 10/31/17 09:07 Dose: 25 mg Dextrose (Dextrose 50% Inj) 0 ml IV STAT PRN; Protocol PRN Reason: Hypoglycemia Protocol Dextrose (Glutose 15) 0 gm PO ONCE PRN; Protocol PRN Reason: Hypoglycemia Protocol Ferrous Sulfate (Feosol) 325 mg PO HS [facility] Last Admin: 10/31/17 21:50 Dose: 325 mg Glipizide (Glucotrol Xl) 10 mg PO BID [facility] Last Admin: 10/31/17 09:02 Dose: Not Given Glucagon (Glucagen Diagnostic Kit) 0 mg IM STAT PRN; Protocol PRN Reason: Hypoglycemia Protocol Ceftriaxone Sodium 1 gm/ (Sodium Chloride) 100 mls @ 100 mls/hr IVPB DAILY [facility] PRN Reason: Protocol Last Admin: 10/31/17 09:08 Dose: 100 mls/hr Insulin Human Regular (Humulin R) 0 units SC ACHS [facility] PRN Reason: Protocol Last Admin: 10/31/17 21:52 Dose: Not Given Multivitamins/Minerals (Therapeutic-M Tab) 1 tab PO DAILY [facility] Last Admin: 10/31/17 09:08 Dose: Not Given Pravastatin Sodium (Pravachol) 40 mg PO HS [facility] Last Admin: 10/31/17 21:50 Dose: 40 mg Sitagliptin Phosphate (Januvia) 25 mg PO DAILY [facility] Last Admin: 10/31/17 09:02 Dose: Not Given - Labs Labs: 10/31/17 04:20 10/31/17 04:20 PT 14.5 Seconds (9.8-13.1) H 10/27/17 14:45 INR 1.3 (0.9-1.2) H 10/27/17 14:45 APTT 80.9 Seconds (25.6-37.1) H D 10/29/17 06:52 Assessment and Plan (1) NSTEMI (non-ST elevated myocardial infarction) Status: Acute (2) GERALD (acute kidney injury) Status: Acute (3) Hypokalemia Status: Acute (4) Hyponatremia Status: Acute (5) TIA (transient ischemic attack) Status: Acute
== END 2017-10-31 23:10 | disposition home or self-care (01) | DRG 280 ==
LOC: H.ER 19:25 → H.ERHOLD 22:21 → H.TEL 10-27 11:06
PROVIDERS: ADMIT Internal Medicine; ATTEND Internal Medicine
DX: I21.4 Non-ST elevation (NSTEMI) myocardial infarction (principal); G93.41 Metabolic encephalopathy; N17.9 Acute kidney failure, unspecified; G45.9 Transient cerebral ischemic attack, unspecified; E87.1 Hypo-osmolality and hyponatremia; R47.01 Aphasia; E11.9 Type 2 diabetes mellitus without complications; F03.90 Unspecified dementia, unspecified severity, without behavioral disturbance, psychotic disturbance, mood disturbance, and anxiety; E03.9 Hypothyroidism, unspecified; E78.5 Hyperlipidemia, unspecified; E87.6 Hypokalemia; I10 Essential (primary) hypertension; I25.10 Atherosclerotic heart disease of native coronary artery without angina pectoris; Z87.440 Personal history of urinary (tract) infections; Z96.653 Presence of artificial knee joint, bilateral; Z79.84 Long term (current) use of oral hypoglycemic drugs; Z79.899 Other long term (current) drug therapy; R05 Cough

== ENCOUNTER 2018-10-22 15:21 | Observation (INO) | payer MEDICARE, BC ==
[2018-10-22] MEDS ORDERED: Iohexol 240 (50 ml) PO STA (16:07)
--- NOTE | 2018-10-22 16:41 | RAD ---
HISTORY: cough shortness of breath COMPARISON: Chest x-ray performed 10/26/17 TECHNIQUE: Chest PA and lateral FINDINGS: LUNGS: Linear atelectasis, bilateral mid lung zones. Please note that chest x-ray has limited sensitivity for the detection of pulmonary masses. PLEURA: No significant pleural effusion identified. No definite pneumothorax . CARDIOVASCULAR: Cardiomegaly. No atherosclerotic calcification present. OSSEOUS STRUCTURES: Degenerative changes of the spine. VISUALIZED UPPER ABDOMEN: Unremarkable. OTHER FINDINGS: None. IMPRESSION: Cardiomegaly. Linear atelectasis bilateral mid lung zones.
--- NOTE | 2018-10-22 17:25 | ED PDOC ---
Syncope/Near Syncope/Dizziness Time Seen by Provider: 10/22/18 15:50 Chief Complaint (Nursing): Dizziness/Lightheaded Chief Complaint (Provider): Dizziness/Lightheaded History Per: Patient History/Exam Limitations: no limitations Onset/Duration Of Symptoms: Days (x10 days) Current Symptoms Are (Timing): Still Present Additional Complaint(s): Mercedes Coleman is a 72 year old female with a past medical history of hypertension, diabetes, hyperlipidemia, who presents to the emergency department complaining of diffuse abdominal pain and dizziness, associated with a couple episodes of diarrhea, generalized weakness, shortness of breath and some wheezing cough, onset x10 days. Patient states that it has gotten worse since onset and is worse with exertion. He states that he was seen at [facility] last week and was told to go to ED for a CT. Patient denies having any chest pain, production of phlegm, or vomiting but has noted to have a decrease in appetite. PMD: Beronica Valdez Past Medical History Reviewed: Historical Data, Nursing Documentation, Vital Signs Vital Signs: Last Vital Signs Temp 97.5 F L 10/22/18 15:28 Pulse 69 10/22/18 15:28 Resp 18 10/22/18 15:28 BP 176/78 H 10/22/18 15:28 Pulse Ox 100 10/22/18 15:28 - Medical History PMH: Diabetes, HTN, Hyperlipidemia Denies: Chronic Kidney Disease Other PMH: psoriasis - Family History Family History: States: Hypertension - Social History Current smoker - smoking cessation education provided: No Ex-Smoker (has not smoked in the last 12 months): No - Home Medications Home Medications: Ambulatory Orders Medication Instructions Recorded Carvedilol [Coreg] 25 mg PO BID 06/17/16 Glimepiride [Amaryl] 4 mg PO BID 06/17/16 Linagliptin [Tradjenta] 5 mg PO DAILY 06/17/16 MetFORMIN ER [Glucophage XR] 750 mg PO BID 06/17/16 Multivitamin [Multi-Vitamin Daily] 1 tab PO DAILY 06/17/16 Pravastatin Sodium [Pravachol] 40 mg PO HS 06/17/16 amLODIPine [Norvasc] 5 mg PO DAILY 06/17/16 Valsartan [Diovan] 160 mg PO DAILY 10/23/18 - Allergies Allergies/Adverse Reactions: Allergies Allergy/AdvReac Type Severity Reaction Status Date / Time acetaminophen [From Tylenol] Allergy RASH Verified 10/22/18 15:36 chlorophyllin Allergy RASH Verified 10/22/18 15:36 Sulfa (Sulfonamide Allergy RASH Verified 10/22/18 15:36 Antibiotics) baking soda Allergy RASH Uncoded 10/22/18 15:36 Review of Systems ROS Statement: Except As Marked, All Systems Reviewed And Found Negative Cardiovascular: Negative for: Chest Pain Respiratory: Positive for: Cough, Shortness of Breath, Wheezing. Negative for: Other (phlegm) Gastrointestinal: Positive for: Abdominal Pain, Diarrhea. Negative for: Vomiting Musculoskeletal: Positive for: Other (chronic edema on the legs) Skin: Positive for: Other (skin peeling) Neurological: Positive for: Weakness, Dizziness Physical Exam - Reviewed Nursing Documentation Reviewed: Yes Vital Signs Reviewed: Yes - Physical Exam Appears: Positive for: No Acute Distress (tired appearing) Head Exam: Positive for: ATRAUMATIC, NORMOCEPHALIC Skin: Positive for: Normal Color (peeling at the edges of the soles of feet, hands and some at the edges of her hairline) Eye Exam: Positive for: EOMI, PERRL ENT: Negative for: Pharyngeal Erythema, Tonsillar Exudate Neck: Positive for: Painless ROM, Supple Cardiovascular/Chest: Positive for: Regular Rate, Rhythm. Negative for: Murmur Respiratory: Positive for: Wheezing (coarse inspiratory and expiratory wheezing bilaterally in lower lungs). Negative for: Accessory Muscle Use, Respiratory Distress Gastrointestinal/Abdominal: Positive for: Soft, Tenderness (diffuse). Negative for: Mass, Distended, Guarding, Rebound Back: Positive for: Normal Inspection. Negative for: Muscle Spasm Extremity: Positive for: Pedal Edema (Bilateral leg 1+ pitting edema ), Swelling Lymphatic: Negative for: Adenopathy Neurologic/Psych: Positive for: Alert. Negative for: Motor/Sensory Deficits - Laboratory Results Result Diagrams: 10/22/18 17:05 10/22/18 17:05 - ECG O2 Sat by Pulse Oximetry: 100 (RA) Pulse Ox Interpretation: Normal Medical Decision Making Medical Decision Making: Time: 1624 Impression: Shortness of breath, abdominal pain Differential diagnosis includes but is not limited to gastroenteritis, PNA, viral illness, CHF, colitis, diverticulitis Plan: --EKG --CT abd pelvis PO and IV contrast --Chest xray --CMP, --Lact acid --Lipase, --Magnesium --Phosphorous --B-type Natriuretic Peptide --Troponin I --Thyroid stimulating hormone --CBC with differential --PTT --PT --Omnipaque 50 ml PO --Blood culture --Urine culture --Saline lock --Glucose, blood --Influenza A B --Urinalysis Time: 1637 Accession No. : [id number] Patient Name / ID : SHAYY WASHINGTON S / [id number] Exam Date : 10/22/2018 16:05:26 ( Approved ) Study Comment : Sex / Age : F / [id number] Creator : Corry Guerrero MD Dictator : Corry Guerrero MD Product Sales Engineer : Road Worker : Corry Guerrero MD Approver2 : Report Date : 10/22/2018 16:37:37 My Comment : HISTORY: cough shortness of breath COMPARISON: Chest x-ray performed 10/26/17 TECHNIQUE: Chest PA and lateral Chest x-ray FINDINGS: LUNGS: Linear atelectasis, bilateral mid lung zones. Please note that chest x-ray has limited sensitivity for the detection of pulmonary masses. PLEURA: No significant pleural effusion identified. No definite pneumothorax . CARDIOVASCULAR: Cardiomegaly. No atherosclerotic calcification present. OSSEOUS STRUCTURES: Degenerative changes of the spine. VISUALIZED UPPER ABDOMEN: Unremarkable. OTHER FINDINGS: None. IMPRESSION: Cardiomegaly. Linear atelectasis bilateral mid lung zones. Labs demonstrate marked hyponatremia, hypomagnesemia, and hypokalemia. Supplementation/corrective fluids ordered [facility] Newell Hospitalist for admission to medical service BONITA pt and family findings and plan of care. Scribe Attestation: Documented by Osito Weathers, acting as a scribe for Kadie Carney MD. Provider Scribe Attestation: All medical record entries made by the Scribe were at my direction and personally dictated by me. I have reviewed the chart and agree that the record accurately reflects my personal performance of the history, physical exam, medical decision making, and the department course for this patient. I have also personally directed, reviewed, and agree with the discharge instructions and disposition. Disposition - Clinical Impression Clinical Impression: Hyponatremia, Hypokalemia, Hypomagnesemia - Disposition Disposition Time: 18:00 Condition: FAIR - Pt Status Changed To: Hospital Disposition Of: Inpatient - Admit Certification Admit to Inpatient:: After my assessment, the patient will require hospitalization for at least two midnights. This is because of the severity of symptoms shown, intensity of services needed, and/or the medical risk in this patient being treated as an outpatient. - POA Present On Arrival: None
[2018-10-22 17:29] LABS: BASO % 0.5 % (0.0-2.0); EOS # 0.2 K/uL (0.0-0.7); EOS % 2.5 % (0.0-4.0); HEMOGLOBIN 11.6 g/dL (12.0-16.0); LYMPH # 1.5 K/uL (1.0-4.3); LYMPH % 18.3 % (20.0-40.0); MEAN CELL VOLUME 72.8 fl (81.0-99.0); MEAN CORPUSCULAR HEMOGLOBIN 24.3 pg (27.0-31.0); MEAN CORPUSCULAR HGB CONC 33.4 g/dL (33.0-37.0); MONO # 0.8 K/uL (0.0-0.8); MONO % 9.6 % (0.0-10.0); NEUT # 5.8 K/uL (1.8-7.0); NEUT % 69.1 % (50.0-75.0); PROTHROMBIN TIME 11.9 Seconds (9.8-13.1); RBC 4.79 Mil/uL (3.80-5.20); RED CELL DISTRIBUTION WIDTH 14.3 % (11.5-14.5); SQUAMOUS EPITHIAL 1 /hpf (0-5); URINE AMORPHOUS SEDIMENT RARE /ul (<OCC); URINE BACTERIA RARE (<OCC); URINE BILIRUBIN NEGATIVE (NEGATIVE); URINE BLOOD NEGATIVE (NEGATIVE); URINE CLARITY CLEAR (Clear); URINE COLOR YELLOW (YELLOW); URINE GLUCOSE (UA) 50 mg/dL (NEGATIVE); URINE PROTEIN 100 mg/dL (NEGATIVE); URINE UROBILINOGEN 0.2-1.0 mg/dL (0.2-1.0); WHITE BLOOD COUNT 8.3 K/uL (4.8-10.8)
[2018-10-22 17:30] LABS: URINE LEUKOCYTE ESTERASE NEGATIVE Leu/uL (Negative)
[2018-10-22 17:31] LABS: PARTIAL THROMBOPLASTIN TIME 36.9 Seconds (25.6-37.1)
[2018-10-22] MEDS ORDERED: Sodium Chloride 0.9% 1,000 ML IV STA (17:40)
[2018-10-22 17:48] LABS: ALB/GLOB RATIO 1.1 (1.0-2.1); ALBUMIN 4.5 g/dL (3.5-5.0); ALT/SGPT 33 U/L (9-52); AST/SGOT 41 U/L (14-36); B-TYPE NATRIURETIC PEPTIDE 181 pg/ml (0-900); BLOOD UREA NITROGEN 8 mg/dl (7-17); CALCIUM 8.7 mg/dL (8.4-10.2); GFR NON-AFRICAN AMERICAN > 60; LIPASE 197 U/L (23-300)
[2018-10-22] MEDS ORDERED: Iohexol 240 (50 ml) ONE (17:49)
[2018-10-22] MEDS ORDERED: Potassium Chloride 20 mEq ER Tab PO STA (17:59)
[2018-10-22] MEDS ORDERED: Magnesium Sulfate 2 gm/50 ml 2 GM/50 ML BAG IVPB ONE (18:00)
[2018-10-22] MEDS ORDERED: Sodium Chloride 3% 500 ML IV SCH (18:00)
[2018-10-22] MEDS ORDERED: Potassium Chloride 20 mEq ER Tab PO ONE (18:16)
[2018-10-22] MEDS ORDERED: Magnesium Sulfate 2 gm/50 ml 2 GM/50 ML BAG ONE (18:17)
--- NOTE | 2018-10-22 19:13 | CP.PCM.HP ---
<Jyotsna Menjivar - Last Filed: 10/23/18 01:27> History of Present Illness - History of Present Illness History of Present Illness: 72 year old female with a PMH hypertension, mild asthma, type 2 diabetes, hyperlipidemia, CAD who presented to the emergency department with multiple complaints including wheezing cough and abdominal discomfort sporadically for a week with several episodes of diarrhea. Family at bedside to assist with history taking. Patient visited urgent care last week for her abdominal pain and cough, was prescribed bromphenir and azithromycin Z-pack, and was recommended to get CT for her abdomen in an ED. However, pt states she took antibiotics and cough syrup and felt some relief at first. Then, 2 days ago she started feeling sick again, cough returned and she was short of breath. Denies chest pain, phlegm production, vomiting, nausea, blood in urine, blood in stool. PMD: Beronica Valdez PMH: hypertension, mild asthma, type 2 diabetes, hyperlipidemia, CAD Past Surg hx: bilateral knee replacement, bilateral cataract Social hx: denies tobacco, alcohol, drug use. Lives with , independent of ADLs. Walks with cane. Fam hx: [place] Allergies: tylenol? Medications: tradjenta 5 mg, valsartan-hctz 160-25 daily, metformin 750 mg BID, amlodipine 5 mg daily, glimepiride 4 mg BID, pravastatin 40 mg QHS, Proair inhaler PRN (uses less than 1x a week) NOK/decision maker - Aries payan [phone] Code status: Full Code In ED: Vitals: BP 176/78 (then 155/71), HR 69, Temp 97.5, RR 18, O2 sat 100 room air CBC: 8.3>11.6/34.8<268 CMP: Na 119, K 3.4, Mg 1.0 ; Lactic acid 3.3 Troponin neg UA: neg LE, neg nitrate, protein 100, glucose 50 Flu neg CXR: Cardiomegaly; linear atelectasis bilateral mid-lung zones. Blood and urine culture collected Abd/Pelvis CT with PO&IV contrast ordered Received: 2gm Mg Sulfate IVPB 40 mEq K-dur PO Started on hypertonic 3% normal saline at 20 ml/hr Present on Admission - Present on Admission Any Indicators Present on Admission: No Review of Systems - Review of Systems Review of Systems: as per HPI Past Patient History - Infectious Disease Hx of Infectious Diseases: None - Tetanus Immunizations Tetanus Immunization: Unknown - Past Medical History & Family History Past Medical History?: Yes - Past Social History Smoking Status: Never Smoked Alcohol: None Drugs: Denies Home Situation {Lives}: With Family - CARDIAC Hx Cardiac Disorders: Yes Hx Hypertension: Yes - PULMONARY Hx Respiratory Disorders: Yes Hx Asthma: Yes - NEUROLOGICAL Hx Neurological Disorder: No - HEENT Hx HEENT Problems: Yes Hx Cataracts: Yes - RENAL Hx Chronic Kidney Disease: No - ENDOCRINE/METABOLIC Hx Endocrine Disorders: Yes Hx Diabetes Mellitus Type 2: Yes - HEMATOLOGICAL/ONCOLOGICAL Hx Blood Disorders: No Hx Blood Transfusions: No - INTEGUMENTARY Hx Dermatological Problems: Yes Other/Comment: Generalized rashes - MUSCULOSKELETAL/RHEUMATOLOGICAL Hx Musculoskeletal Disorders: No Hx Falls: No - GASTROINTESTINAL Hx Gastrointestinal Disorders: No - GENITOURINARY/GYNECOLOGICAL Hx Genitourinary Disorders: No - PSYCHIATRIC Hx Psychophysiologic Disorder: No Hx Substance Use: No - SURGICAL HISTORY Hx Surgeries: Yes Hx Cataract Extraction: Yes (bilateral) Hx Orthopedic Surgery: Yes (bilateral knee replacement) - ANESTHESIA Hx Anesthesia: Yes Hx Anesthesia Reactions: No Meds Allergies/Adverse Reactions: Allergies Allergy/AdvReac Type Severity Reaction Status Date / Time acetaminophen [From Tylenol] Allergy RASH Verified 10/22/18 15:36 chlorophyllin Allergy RASH Verified 10/22/18 15:36 Sulfa (Sulfonamide Allergy RASH Verified 10/22/18 15:36 Antibiotics) baking soda Allergy RASH Uncoded 10/22/18 15:36 Physical Exam - Constitutional Appears: Non-toxic, No Acute Distress - Head Exam Head Exam: NORMAL INSPECTION - Eye Exam Eye Exam: Normal appearance - ENT Exam ENT Exam: Mucous Membranes Moist - Neck Exam Neck exam: Positive for: Full Rom, Normal Inspection. Negative for: Lymphadenopathy, Tenderness - Respiratory Exam Respiratory Exam: Wheezes (scattered wheeze), NORMAL BREATHING PATTERN. absent: Respiratory Distress - Cardiovascular Exam Cardiovascular Exam: REGULAR RHYTHM, +S1, +S2 - GI/Abdominal Exam GI & Abdominal Exam: Soft. absent: Tenderness - Extremities Exam Extremities exam: Positive for: pedal edema (1+). Negative for: calf tenderness - Neurological Exam Neurological exam: Alert, Oriented x3 - Skin Skin Exam: Normal Color, Warm Additional comments: peeling on soles of feet Results - Vital Signs Recent Vital Signs: Last Vital Signs Temp 98.0 F 10/22/18 18:05 Pulse 75 10/22/18 18:05 Resp 18 10/22/18 18:05 BP 155/71 H 10/22/18 18:05 Pulse Ox 98 10/22/18 18:05 - Labs Result Diagrams: 10/22/18 17:05 10/22/18 17:05 Labs: Laboratory Results - last 24 hr 10/22/18 10/22/18 10/22/18 15:31 16:53 17:05 WBC RBC Hgb Hct MCV MCH MCHC RDW Plt Count MPV Neut % (Auto) Lymph % (Auto) [place] % (Auto) Eos % (Auto) Baso % (Auto) Neut # (Auto) Lymph # (Auto) [place] # (Auto) Eos # (Auto) Baso # (Auto) PT INR APTT Sodium 119 L* Potassium 3.4 L Chloride 69 L D Carbon Dioxide 30 Anion Gap 23 H BUN 8 Creatinine 0.6 L Est GFR ( Amer) > 60 Est GFR (Non-Af Amer) > 60 POC Glucose (mg/dL) 202 H 165 H Random Glucose 168 H Lactic Acid Calcium 8.7 Phosphorus 2.5 Magnesium 1.0 L* D Total Bilirubin 0.5 AST 41 H ALT 33 Alkaline Phosphatase 126 D Troponin I < 0.0120 NT-Pro-B Natriuret Pep 181 Total Protein 8.5 H Albumin 4.5 Globulin 4.0 H Albumin/Globulin Ratio 1.1 Lipase 197 TSH 3rd Generation 2.17 Urine Color Urine Clarity Urine pH Ur Specific [place] Urine Protein Urine Glucose (UA) Urine Ketones Urine Blood Urine Nitrate Urine Bilirubin Urine Urobilinogen Ur Leukocyte Esterase Urine RBC (Auto) Urine Microscopic WBC Ur Squamous Epith Cells Amorphous Sediment Urine Bacteria 10/22/18 10/22/18 10/22/18 17:05 17:05 17:05 WBC 8.3 D RBC 4.79 Hgb 11.6 L D Hct 34.8 MCV 72.8 L D MCH 24.3 L MCHC 33.4 RDW 14.3 Plt Count 268 MPV 8.0 Neut % (Auto) 69.1 Lymph % (Auto) 18.3 L [place] % (Auto) 9.6 Eos % (Auto) 2.5 Baso % (Auto) 0.5 Neut # (Auto) 5.8 Lymph # (Auto) 1.5 [place] # (Auto) 0.8 Eos # (Auto) 0.2 Baso # (Auto) 0.0 PT 11.9 INR 1.0 APTT 36.9 Sodium Potassium Chloride Carbon Dioxide Anion Gap BUN Creatinine Est GFR ( Amer) Est GFR (Non-Af Amer) POC Glucose (mg/dL) Random Glucose Lactic Acid 3.3 H Calcium Phosphorus Magnesium Total Bilirubin AST ALT Alkaline Phosphatase Troponin I NT-Pro-B Natriuret Pep Total Protein Albumin Globulin Albumin/Globulin Ratio Lipase TSH 3rd Generation Urine Color Urine Clarity Urine pH Ur Specific [place] Urine Protein Urine Glucose (UA) Urine Ketones Urine Blood Urine Nitrate Urine Bilirubin Urine Urobilinogen Ur Leukocyte Esterase Urine RBC (Auto) Urine Microscopic WBC Ur Squamous Epith Cells Amorphous Sediment Urine Bacteria 10/22/18 17:05 WBC RBC Hgb Hct MCV MCH MCHC RDW Plt Count MPV Neut % (Auto) Lymph % (Auto) [place] % (Auto) Eos % (Auto) Baso % (Auto) Neut # (Auto) Lymph # (Auto) [place] # (Auto) Eos # (Auto) Baso # (Auto) PT INR APTT Sodium Potassium Chloride Carbon Dioxide Anion Gap BUN Creatinine Est GFR ( Amer) Est GFR (Non-Af Amer) POC Glucose (mg/dL) Random Glucose Lactic Acid Calcium Phosphorus Magnesium Total Bilirubin AST ALT Alkaline Phosphatase Troponin I NT-Pro-B Natriuret Pep Total Protein Albumin Globulin Albumin/Globulin Ratio Lipase TSH 3rd Generation Urine Color Yellow Urine Clarity Clear Urine pH 7.0 Ur Specific [place] 1.008 Urine Protein 100 Urine Glucose (UA) 50 Urine Ketones Negative Urine Blood Negative Urine Nitrate Negative Urine Bilirubin Negative Urine Urobilinogen 0.2-1.0 Ur Leukocyte Esterase Negative Urine RBC (Auto) 1 Urine Microscopic WBC 2 Ur Squamous Epith Cells 1 Amorphous Sediment Rare H Urine Bacteria Rare Assessment & Plan - Assessment and Plan (Free Text) Assessment: 72 year old female with a PMH hypertension, mild asthma, type 2 diabetes, hyperlipidemia, CAD who presented to the emergency department with multiple complaints including wheezing cough and abdominal discomfort sporadically for a week with several episodes of diarrhea; found to have hyponatremia and hypomagnesemia. Plan: Hyponatremia - 3% sodium chrloride at 20 ml/hr - f/u BMP in am - 800 mL fluid restriction Hypomagnesemia - s/p 2 gm magnesium sulfate - f/u BMP in am Hypokalemia - s/p 40 mEq K-dur PO - f/u BMP in am Asthma, mild - Duoneb PRN Q4 hrs Hypertension, chronic - hold diuretic, monitor BP Diabetes Mellitus, type 2 - Hold home meds for now - Accuchecks ACTID, insulin coverage scale and hypoglycemia protocol Hyperlipidemia - Hold home meds for now Diet - Moderate consistent carb diet with 800 ml fluid restriction Prophylaxis - SCD, lovenox in am - Protonix Pt discussed w/ Dr. Newell. <Bjorn Newell D - Last Filed: 10/23/18 09:41> Results - Vital Signs Recent Vital Signs: Last Vital Signs Temp 98.1 F 10/22/18 23:05 Pulse 77 10/23/18 06:33 Resp 18 10/23/18 06:33 BP 153/77 H 10/23/18 06:33 Pulse Ox 98 10/23/18 06:33 - Labs Result Diagrams: 10/23/18 05:50 10/23/18 05:50 Labs: Laboratory Results - last 24 hr 10/22/18 10/22/18 10/22/18 15:31 16:53 17:05 WBC RBC Hgb Hct MCV MCH MCHC RDW Plt Count MPV Neut % (Auto) Lymph % (Auto) [place] % (Auto) Eos % (Auto) Baso % (Auto) Neut # (Auto) Lymph # (Auto) [place] # (Auto) Eos # (Auto) Baso # (Auto) PT INR APTT Sodium 119 L* Potassium 3.4 L Chloride 69 L D Carbon Dioxide 30 Anion Gap 23 H BUN 8 Creatinine 0.6 L Est GFR ( Amer) > 60 Est GFR (Non-Af Amer) > 60 POC Glucose (mg/dL) 202 H 165 H Random Glucose 168 H Lactic Acid Calcium 8.7 Phosphorus 2.5 Magnesium 1.0 L* D Total Bilirubin 0.5 AST 41 H ALT 33 Alkaline Phosphatase 126 D Troponin I < 0.0120 NT-Pro-B Natriuret Pep 181 Total Protein 8.5 H Albumin 4.5 Globulin 4.0 H Albumin/Globulin Ratio 1.1 Lipase 197 TSH 3rd Generation 2.17 Urine Color Urine Clarity Urine pH Ur Specific [place] Urine Protein Urine Glucose (UA) Urine Ketones Urine Blood Urine Nitrate Urine Bilirubin Urine Urobilinogen Ur Leukocyte Esterase Urine RBC (Auto) Urine Microscopic WBC Ur Squamous Epith Cells Amorphous Sediment Urine Bacteria Influenza Typ A,B (EIA) 10/22/18 10/22/18 10/22/18 17:05 17:05 17:05 WBC 8.3 D RBC 4.79 Hgb 11.6 L D Hct 34.8 MCV 72.8 L D MCH 24.3 L MCHC 33.4 RDW 14.3 Plt Count 268 MPV 8.0 Neut % (Auto) 69.1 Lymph % (Auto) 18.3 L [place] % (Auto) 9.6 Eos % (Auto) 2.5 Baso % (Auto) 0.5 Neut # (Auto) 5.8 Lymph # (Auto) 1.5 [place] # (Auto) 0.8 Eos # (Auto) 0.2 Baso # (Auto) 0.0 PT 11.9 INR 1.0 APTT 36.9 Sodium Potassium Chloride Carbon Dioxide Anion Gap BUN Creatinine Est GFR ( Amer) Est GFR (Non-Af Amer) POC Glucose (mg/dL) Random Glucose Lactic Acid 3.3 H Calcium Phosphorus Magnesium Total Bilirubin AST ALT Alkaline Phosphatase Troponin I NT-Pro-B Natriuret Pep Total Protein Albumin Globulin Albumin/Globulin Ratio Lipase TSH 3rd Generation Urine Color Urine Clarity Urine pH Ur Specific [place] Urine Protein Urine Glucose (UA) Urine Ketones Urine Blood Urine Nitrate Urine Bilirubin Urine Urobilinogen Ur Leukocyte Esterase Urine RBC (Auto) Urine Microscopic WBC Ur Squamous Epith Cells Amorphous Sediment Urine Bacteria Influenza Typ A,B (EIA) 10/22/18 10/22/18 10/22/18 17:05 18:36 21:53 WBC RBC Hgb Hct MCV MCH MCHC RDW Plt Count MPV Neut % (Auto) Lymph % (Auto) [place] % (Auto) Eos % (Auto) Baso % (Auto) Neut # (Auto) Lymph # (Auto) [place] # (Auto) Eos # (Auto) Baso # (Auto) PT INR APTT Sodium Potassium Chloride Carbon Dioxide Anion Gap BUN Creatinine Est GFR ( Amer) Est GFR (Non-Af Amer) POC Glucose (mg/dL) 130 H Random Glucose Lactic Acid Calcium Phosphorus Magnesium Total Bilirubin AST ALT Alkaline Phosphatase Troponin I NT-Pro-B Natriuret Pep Total Protein Albumin Globulin Albumin/Globulin Ratio Lipase TSH 3rd Generation Urine Color Yellow Urine Clarity Clear Urine pH 7.0 Ur Specific [place] 1.008 Urine Protein 100 Urine Glucose (UA) 50 Urine Ketones Negative Urine Blood Negative Urine Nitrate Negative Urine Bilirubin Negative Urine Urobilinogen 0.2-1.0 Ur Leukocyte Esterase Negative Urine RBC (Auto) 1 Urine Microscopic WBC 2 Ur Squamous Epith Cells 1 Amorphous Sediment Rare H Urine Bacteria Rare Influenza Typ A,B (EIA) Negative for flu a/b 10/23/18 10/23/18 10/23/18 05:50 05:50 07:43 WBC 7.2 RBC 4.50 Hgb 10.9 L Hct 32.2 L MCV 71.5 L MCH 24.3 L MCHC 33.9 RDW 14.8 H Plt Count 252 MPV 7.9 Neut % (Auto) 67.4 Lymph % (Auto) 17.7 L [place] % (Auto) 11.3 H Eos % (Auto) 2.6 Baso % (Auto) 1.0 Neut # (Auto) 4.8 Lymph # (Auto) 1.3 [place] # (Auto) 0.8 Eos # (Auto) 0.2 Baso # (Auto) 0.1 PT INR APTT Sodium 123 L Potassium 3.3 L Chloride 78 L Carbon Dioxide 33 H Anion Gap 15 BUN 6 L Creatinine 0.4 L Est GFR ( Amer) > 60 Est GFR (Non-Af Amer) > 60 POC Glucose (mg/dL) 210 H Random Glucose 151 H Lactic Acid Calcium 8.3 L Phosphorus Magnesium 1.5 L Total Bilirubin AST ALT Alkaline Phosphatase Troponin I NT-Pro-B Natriuret Pep Total Protein Albumin Globulin Albumin/Globulin Ratio Lipase TSH 3rd Generation Urine Color Urine Clarity Urine pH Ur Specific [place] Urine Protein Urine Glucose (UA) Urine Ketones Urine Blood Urine Nitrate Urine Bilirubin Urine Urobilinogen Ur Leukocyte Esterase Urine RBC (Auto) Urine Microscopic WBC Ur Squamous Epith Cells Amorphous Sediment Urine Bacteria Influenza Typ A,B (EIA) Attending/Attestation - Attestation I have personally seen and examined this patient.: Yes I have fully participated in the care of the patient.: Yes I have reviewed all pertinent clinical information: Yes Notes (Text): 10/23/18 09:40 Patient seen and examined with resident. Case discussed and agreed with assessment and plan of management.
[2018-10-22] MEDS ORDERED: Glucagon Recombinant 1 mg Inj IM PRN (20:32)
[2018-10-22] MEDS ORDERED: Dextrose 50% SYRINGE Inj (50 ml) IV PRN (20:32)
[2018-10-22] MEDS ORDERED: Albuterol-Ipratrop 3 mg / 0.5 (3 ml) UD INH PRN (21:00)
[2018-10-22] MEDS ORDERED: Iohexol 300 100 ML IJ ONE (21:04)
[2018-10-22] MEDS ORDERED: Sodium Chloride 0.9% 250 ML IV ONE (21:04)
[2018-10-23 06:05] LABS: BASO # 0.1 K/uL (0.0-0.2); EOS # 0.2 K/uL (0.0-0.7); EOS % 2.6 % (0.0-4.0); HEMOGLOBIN 10.9 g/dL (12.0-16.0); LYMPH # 1.3 K/uL (1.0-4.3); LYMPH % 17.7 % (20.0-40.0); MEAN CELL VOLUME 71.5 fl (81.0-99.0); MEAN CORPUSCULAR HEMOGLOBIN 24.3 pg (27.0-31.0); MEAN CORPUSCULAR HGB CONC 33.9 g/dL (33.0-37.0); MEAN PLATELET VOLUME 7.9 fl (7.2-11.7); MONO # 0.8 K/uL (0.0-0.8); MONO % 11.3 % (0.0-10.0); NEUT # 4.8 K/uL (1.8-7.0); NEUT % 67.4 % (50.0-75.0); NRBC % 0.2 % (0.0-0.0); RBC 4.5 Mil/uL (3.80-5.20); RED CELL DISTRIBUTION WIDTH 14.8 % (11.5-14.5); WHITE BLOOD COUNT 7.2 K/uL (4.8-10.8)
[2018-10-23 06:30] LABS: BLOOD UREA NITROGEN 6 mg/dl (7-17); CALCIUM 8.3 mg/dL (8.4-10.2); GFR NON-AFRICAN AMERICAN > 60
[2018-10-23] MEDS ORDERED: Insulin Regular 100 units/ml ONE (07:51)
[2018-10-23] MEDS: Insulin Lispro (humaLOG) 100 Units/ml Inj SC SCH ×3 (08:07→17:17)
[2018-10-23] MEDS ORDERED: Potassium Chloride 20 mEq ER Tab PO STA (08:36)
[2018-10-23] MEDS ORDERED: Potassium Chloride 20 mEq ER Tab PO ONE (08:54)
[2018-10-23] MEDS ORDERED: Potassium CL 10 MEQ/50 ML 50 ML ONE ×2 (08:54→10:03)
[2018-10-23] MEDS: Potassium CL 10 MEQ/50 ML 50 ML IVPB SCH ×2 (08:56→10:02)
[2018-10-23] MEDS ORDERED: Enoxaparin 40 mg Syringe SC SCH (09:00)
--- NOTE | 2018-10-23 09:02 | CP.PCM.PN ---
<Sultan Rocky - Last Filed: 10/23/18 13:12> Subjective - Date & Time of Evaluation Date of Evaluation: 10/23/18 Time of Evaluation: 09:20 - Subjective Subjective: 72 year old female with a PMHx of hypertension, mild asthma, type 2 diabetes, hyperlipidemia, CAD admitted for electrolytes disturbances. Patient reports she completed a course of z-aquilino last week. States she had diarrhea 2 days ago and no diarrhea since then. Reports intermittent abdominal pain x 2 weeks but denies any abdominal pain now but does report decreased appetite and has been eating toast and tea for last 5 days. Denies dyspnea, chest pain, fever or chills. Objective - Vital Signs/Intake and Output Vital Signs (last 24 hours): Temp Pulse Resp BP Pulse Ox 98.1 F 77 18 153/77 H 98 10/22/18 23:05 10/23/18 06:33 10/23/18 06:33 10/23/18 06:33 10/23/18 06:33 - Medications Medications: Current Medications Albuterol/Ipratropium (Duoneb 3 Mg/0.5 Mg (3 Ml) Ud) 3 ml INH RQ4 PRN PRN Reason: Shortness of Breath Dextrose (Dextrose 50% Inj) 0 ml IV STAT PRN; Protocol PRN Reason: Hypoglycemia Protocol Dextrose (Glutose 15) 0 gm PO ONCE PRN; Protocol PRN Reason: Hypoglycemia Protocol Enoxaparin Sodium (Lovenox) 40 mg SC DAILY DANIELLE; Protocol Glucagon (Glucagen Diagnostic Kit) 0 mg IM STAT PRN; Protocol PRN Reason: Hypoglycemia Protocol Sodium Chloride (Hypertonic Saline 3%) 500 mls @ 20 mls/hr IV .Q24H DANIELLE Stop: 10/23/18 17:52 Last Admin: 10/22/18 18:59 Dose: 20 mls/hr Potassium Chloride (Potassium Cl 10meq/50ml Sterile Water) 50 mls @ 50 mls/hr IVPB Q1 DANIELLE Stop: 10/23/18 10:59 Last Admin: 10/23/18 08:56 Dose: 50 mls/hr Insulin Human Lispro (Humalog) 0 units SC ACTID DANIELLE; Protocol Last Admin: 10/23/18 08:07 Dose: 2 u - Labs Labs: 10/23/18 05:50 10/23/18 05:50 PT 11.9 Seconds (9.8-13.1) 10/22/18 17:05 INR 1.0 10/22/18 17:05 APTT 36.9 Seconds (25.6-37.1) 10/22/18 17:05 - Constitutional Appears: No Acute Distress - Head Exam Head Exam: NORMAL INSPECTION - ENT Exam ENT Exam: Mucous Membranes Moist - Neck Exam Neck Exam: Normal Inspection - Respiratory Exam Respiratory Exam: Clear to Ausculation Bilateral, NORMAL BREATHING PATTERN. absent: Rhonchi, Wheezes - Cardiovascular Exam Cardiovascular Exam: REGULAR RHYTHM, +S1, +S2 - GI/Abdominal Exam GI & Abdominal Exam: Soft, Normal Bowel Sounds. absent: Guarding, Rigid, Tenderness - Extremities Exam Extremities Exam: Normal Inspection. absent: Calf Tenderness - Neurological Exam Neurological Exam: Alert, Awake, Oriented x3 - Psychiatric Exam Psychiatric exam: Normal Affect, Normal Mood - Skin Skin Exam: Dry (dry skin on B/L feet), Warm Assessment and Plan - Assessment and Plan (Free Text) Assessment: 72 year old female with a PMH hypertension, mild asthma, type 2 diabetes, hyperlipidemia, CAD who presented to the emergency department with multiple complaints including wheezing cough and abdominal discomfort sporadically for a week with several episodes of diarrhea; found to have hyponatremia and hypomagnesemia. CT A/P shows colitis (final reading pending) Plan: Hyponatremia -Na 123 this morning -c/w 3% sodium chrloride at 20 ml/hr -f/u BMP in the afternoon - 800 mL fluid restriction -f/u labs: urine lytes and legionella ag -Consult honey extractor, f/u recommendation Hypomagnesemia - s/p 2 gm magnesium sulfate - Mag 1.5 this morning -ordered 2 mg mg this afternoon. - f/u Mag in am Hypokalemia - s/p 40 mEq K-dur PO -Kcl 3.3 -ordered 20 meq po and 20 Kcl IV -f/u BMP in in the afternoon. Colitis on CT A/P -has intermittent abdominal pain and diarrhea 2 days ago (hx recent abx use) -Contact precaution -Afebrile with stable vitals -GI consulted: Dr. Oquendo, appreciate the recommendation. -start cipro and flgyl -f/u stool panel, c diff Asthma, mild -Stable - Duoneb PRN Q4 hrs Hypertension, chronic - hold diuretic, monitor BP Diabetes Mellitus, type 2 - Cont linagliptin - Hold metformin and glipizide for now - Accuchecks ACTID, insulin coverage scale and hypoglycemia protocol Hyperlipidemia - Hold home meds for now Diet - Moderate consistent carb diet with 800 ml fluid restriction Prophylaxis - SCD, lovenox in am - Protonix Plan discussed w/ Dr. Newell. <Bjorn Newell D - Last Filed: 10/23/18 14:37> Objective - Vital Signs/Intake and Output Vital Signs (last 24 hours): Temp Pulse Resp BP Pulse Ox 97.6 F 74 18 166/79 H 98 10/23/18 12:52 10/23/18 12:52 10/23/18 12:54 10/23/18 12:52 10/23/18 12:52 - Medications Medications: Current Medications Albuterol/Ipratropium (Duoneb 3 Mg/0.5 Mg (3 Ml) Ud) 3 ml INH RQ4 PRN PRN Reason: Shortness of Breath Amlodipine Besylate (Norvasc) 5 mg PO DAILY [facility] Carvedilol (Coreg) 25 mg PO BID@0900,2100 [facility] Dextrose (Dextrose 50% Inj) 0 ml IV STAT PRN; Protocol PRN Reason: Hypoglycemia Protocol Dextrose (Glutose 15) 0 gm PO ONCE PRN; Protocol PRN Reason: Hypoglycemia Protocol Enoxaparin Sodium (Lovenox) 40 mg SC DAILY [facility]; Protocol Last Admin: 10/23/18 10:02 Dose: 40 mg Glucagon (Glucagen Diagnostic Kit) 0 mg IM STAT PRN; Protocol PRN Reason: Hypoglycemia Protocol Sodium Chloride (Hypertonic Saline 3%) 500 mls @ 20 mls/hr IV .Q24H DANIELLE Stop: 10/23/18 17:52 Last Admin: 10/22/18 18:59 Dose: 20 mls/hr Ciprofloxacin (Cipro 400mg/200ml Dsw) 400 mg in 200 mls @ 200 mls/hr IVPB Q12 DANIELLE; Protocol Metronidazole (Flagyl 500mg/100ml Ns) 100 mls @ 100 mls/hr IVPB Q8 DANIELLE; Protocol Insulin Human Lispro (Humalog) 0 units SC ACTID DANIELLE; Protocol Last Admin: 10/23/18 11:31 Dose: 2 u Losartan Potassium (Cozaar) 100 mg PO DAILY [facility] Multivitamins/Minerals (Therapeutic-M Tab) 1 tab PO DAILY [facility] Last Admin: 10/23/18 14:28 Dose: 1 tab Pravastatin Sodium (Pravachol) 40 mg PO HS DANIELLE Sitagliptin Phosphate (Januvia) 100 mg PO DAILY [facility] - Labs Labs: 10/23/18 05:50 10/23/18 05:50 PT 11.9 Seconds (9.8-13.1) 10/22/18 17:05 INR 1.0 10/22/18 17:05 APTT 36.9 Seconds (25.6-37.1) 10/22/18 17:05 Attending/Attestation - Attestation I have personally seen and examined this patient.: Yes I have fully participated in the care of the patient.: Yes I have reviewed all pertinent clinical information, including history, physical exam and plan: Yes Notes (Text): 10/23/18 14:37 Patient seen and examined with resident. Case discussed and agreed with assessment and plan.
--- NOTE | 2018-10-23 11:16 | CARD ---
APPROVED REPORT Date of service: 10/22/2018 EKG Measurement Heart [id number] <Conclusion> Sinus rhythm with 1st degree AV block ST & T wave abnormality, consider anterolateral ischemia Abnormal ECG
[2018-10-23] MEDS ORDERED: Ciprofloxacin 400mg/200ml D5W 400 MG/200 ML BAG IVPB SCH (12:15)
[2018-10-23] MEDS ORDERED: metroNIDAZOLE 500mg/100ml NS 100 ML IVPB SCH (12:30)
--- NOTE | 2018-10-23 12:30 | CT ---
Date of service: 10/22/2018 PROCEDURE: CT Abdomen and Pelvis with contrast HISTORY: abd pain COMPARISON: None. TECHNIQUE: Contrast dose: Radiation dose: Total exam DLP = 608.32 mGy-cm. This CT exam was performed using one or more of the following dose reduction techniques: Automated exposure control, adjustment of the mA and/or kV according to patient size, and/or use of iterative reconstruction technique. FINDINGS: LOWER THORAX: Unremarkable. LIVER: Unremarkable. No gross lesion or ductal dilatation. GALLBLADDER AND BILE DUCTS: Unremarkable. PANCREAS: Unremarkable. No gross lesion or ductal dilatation. SPLEEN: Unremarkable. ADRENALS: Unremarkable. No mass. KIDNEYS AND URETERS: Unremarkable. No hydronephrosis. No solid mass. VASCULATURE: Unremarkable. No aortic aneurysm. No aortic atherosclerotic calcification or mural plaque present. BOWEL: Unremarkable. No obstruction. No gross mural thickening. APPENDIX: Normal appendix. PERITONEUM: Unremarkable. No free fluid. No free air. LYMPH NODES: Unremarkable. No enlarged lymph nodes. BLADDER: Unremarkable. REPRODUCTIVE: Unremarkable. BONES: No acute fracture. OTHER FINDINGS: None. IMPRESSION: Unremarkable contrast enhanced CT of the abdomen and pelvis.
[2018-10-23] MEDS ORDERED: Magnesium Sulfate 2 gm/50 ml 2 GM/50 ML BAG IVPB ONE (13:14)
[2018-10-23] MEDS ORDERED: Multivitamin With Minerals Tab PO SCH (13:15)
--- NOTE | 2018-10-23 14:31 | PQF ---
PROVIDER RESPONSE TEXT: Mild intermitant REVIEWER QUERY TEXT: Asthma Specificity and Type -- Mild intermittent -- Mild persistent -- Other, please specify The patient's Clinical Indicators include: Medication: Duoneb PRN q 4 hours Query created by: Tawny Brown on 10/23/2018 10:26 AM Electronically signed by: Cuauhtemoc Phillips 10/23/2018 2:29 PM
[2018-10-23 14:55] LABS: BLOOD UREA NITROGEN 9 mg/dl (7-17); CALCIUM 8.8 mg/dL (8.4-10.2); GFR NON-AFRICAN AMERICAN > 60
[2018-10-23 15:24] VITALS: PULSE 80
--- NOTE | 2018-10-23 15:48 | CP.PCM.DIS ---
<Sultan Rocky - Last Filed: 10/23/18 15:54> Provider - Provider Date of Admission: 10/22/18 18:19 Attending physician: Bjorn Newell MD Consults: 10/23/18 08:43 Gastroenterology Consult Stat Comment: Consulting Provider: Idris Oquendo Consulting Physician: Idris Oquendo Reason for Consult: abdominal pain, abnormal CT A/P 10/23/18 11:06 Nephrology Consult Stat Comment: Consulting Provider: Vinh Stacy Consulting Physician: Vinh Stacy Reason for Consult: hyponatremia, hypokalemia Time Spent in preparation of Discharge (in minutes): 25 Diagnosis - Discharge Diagnosis (1) Hypokalemia Status: Acute Priority: High (2) Hypomagnesemia Status: Acute (3) Hyponatremia Status: Acute Priority: High (4) Abdominal pain Status: Resolved Hospital Course - Lab Results Lab Results: Most Recent Lab Values WBC 7.2 K/uL (4.8-10.8) 10/23/18 05:50 RBC 4.50 Mil/uL (3.80-5.20) 10/23/18 05:50 Hgb 10.9 g/dL (12.0-16.0) L 10/23/18 05:50 Hct 32.2 % (34.0-47.0) L 10/23/18 05:50 MCV 71.5 fl (81.0-99.0) L 10/23/18 05:50 MCH 24.3 pg (27.0-31.0) L 10/23/18 05:50 MCHC 33.9 g/dL (33.0-37.0) 10/23/18 05:50 RDW 14.8 % (11.5-14.5) H 10/23/18 05:50 Plt Count 252 K/uL (130-400) 10/23/18 05:50 MPV 7.9 fl (7.2-11.7) 10/23/18 05:50 Neut % (Auto) 67.4 % (50.0-75.0) 10/23/18 05:50 Lymph % (Auto) 17.7 % (20.0-40.0) L 10/23/18 05:50 [place] % (Auto) 11.3 % (0.0-10.0) H 10/23/18 05:50 Eos % (Auto) 2.6 % (0.0-4.0) 10/23/18 05:50 Baso % (Auto) 1.0 % (0.0-2.0) 10/23/18 05:50 Neut # (Auto) 4.8 K/uL (1.8-7.0) 10/23/18 05:50 Lymph # (Auto) 1.3 K/uL (1.0-4.3) 10/23/18 05:50 [place] # (Auto) 0.8 K/uL (0.0-0.8) 10/23/18 05:50 Eos # (Auto) 0.2 K/uL (0.0-0.7) 10/23/18 05:50 Baso # (Auto) 0.1 K/uL (0.0-0.2) 10/23/18 05:50 PT 11.9 Seconds (9.8-13.1) 10/22/18 17:05 INR 1.0 10/22/18 17:05 APTT 36.9 Seconds (25.6-37.1) 10/22/18 17:05 Sodium 126 mmol/l (132-148) L 10/23/18 14:28 Potassium 4.2 MMOL/L (3.6-5.0) 10/23/18 14:28 Chloride 82 mmol/L (98-107) L 10/23/18 14:28 Carbon Dioxide 27 mmol/L (22-30) 10/23/18 14:28 Anion Gap 21 (10-20) H 10/23/18 14:28 BUN 9 mg/dl (7-17) 10/23/18 14:28 Creatinine 0.5 mg/dl (0.7-1.2) L 10/23/18 14:28 Est GFR ( Amer) > 60 10/23/18 14:28 Est GFR (Non-Af Amer) > 60 10/23/18 14:28 POC Glucose (mg/dL) 225 mg/dL (65-110) H 10/23/18 11:25 Random Glucose 253 mg/dL (65-105) H 10/23/18 14:28 Lactic Acid 3.3 mmol/L (0.7-2.1) H 10/22/18 17:05 Calcium 8.8 mg/dL (8.4-10.2) 10/23/18 14:28 Phosphorus 2.5 mg/dl (2.5-4.5) 10/22/18 17:05 Magnesium 1.5 MG/DL (1.6-2.3) L 10/23/18 05:50 Total Bilirubin 0.5 mg/dl (0.2-1.3) 10/22/18 17:05 AST 41 U/L (14-36) H 10/22/18 17:05 ALT 33 U/L (9-52) 10/22/18 17:05 Alkaline Phosphatase 126 U/L (38-126) D 10/22/18 17:05 Troponin I < 0.0120 ng/mL (0.00-0.120) 10/22/18 17:05 NT-Pro-B Natriuret Pep 181 pg/ml (0-900) 10/22/18 17:05 Total Protein 8.5 G/DL (6.3-8.2) H 10/22/18 17:05 Albumin 4.5 g/dL (3.5-5.0) 10/22/18 17:05 Globulin 4.0 gm/dL (2.2-3.9) H 10/22/18 17:05 Albumin/Globulin Ratio 1.1 (1.0-2.1) 10/22/18 17:05 Lipase 197 U/L (23-300) 10/22/18 17:05 TSH 3rd Generation 2.17 mIU/ML (0.46-4.68) 10/22/18 17:05 Urine Color Yellow (YELLOW) 10/22/18 17:05 Urine Clarity Clear (Clear) 10/22/18 17:05 Urine pH 7.0 (5.0-8.0) 10/22/18 17:05 Ur Specific [place] 1.008 (1.003-1.030) 10/22/18 17:05 Urine Protein 100 mg/dL (NEGATIVE) 10/22/18 17:05 Urine Glucose (UA) 50 mg/dL (NEGATIVE) 10/22/18 17:05 Urine Ketones Negative mg/dL (NEGATIVE) 10/22/18 17:05 Urine Blood Negative (NEGATIVE) 10/22/18 17:05 Urine Nitrate Negative (NEGATIVE) 10/22/18 17:05 Urine Bilirubin Negative (NEGATIVE) 10/22/18 17:05 Urine Urobilinogen 0.2-1.0 mg/dL (0.2-1.0) 10/22/18 17:05 Ur Leukocyte Esterase Negative Luis/uL (Negative) 10/22/18 17:05 Urine RBC (Auto) 1 /hpf (0-3) 10/22/18 17:05 Urine Microscopic WBC 2 /hpf (0-5) 10/22/18 17:05 Ur Squamous Epith Cells 1 /hpf (0-5) 10/22/18 17:05 Amorphous Sediment Rare /ul (<OCC) H 10/22/18 17:05 Urine Bacteria Rare (<OCC) 10/22/18 17:05 Ur Random Sodium 67 meq/L 10/22/18 11:44 Ur Random Potassium 37.5 mmol/L 10/22/18 11:44 Influenza Typ A,B (EIA) Negative for flu a/b (NEGATIVE) 10/22/18 18:36 - Hospital Course Hospital Course: 72 year old female with PMHx of hypertension, mild intermittent asthma, type 2 diabetes, hyperlipidemia, and CAD admitted yesterday for electrolytes disturbances and intermittent abdominal pain. Patient's serum Na was 119, K 3.4 and magnesium of 1.0 on admission. Patient received 3% NaCl at 20 ml/hr and corrected Na is 128.45 this afternoon. Patient received total of 80 meq KCl and serum potassium is 4.2 this afternoon. Patient received 2 gm of mag, repeat magnesium 1.5 and also given additional 2 gm of magnesium. Patient's had CT abdomen and pelvis which showed no acute pathology (final reading). Patient reports she is feeling better and hemodynamically stable to discharge home. Advised to follow up with Dr. Valdez in 1-2 days for repeat BMP. Advised patient to discontinue taking Valsartn/HCTZ until follow up by her PMD as diuretics can worsens electrolytes abnormality. Valsaran 160 mg po daily Rx given for 2 weeks in the meantime. ED precaution given including development of dizziness, fatigue any any concerning symptoms. Patient and patient's daughter understand and are in agreement with plan. Discharge Exam - Head Exam Head Exam: NORMAL INSPECTION - Eye Exam Eye Exam: Normal appearance - ENT Exam ENT Exam: Mucous Membranes Moist - Neck Exam Neck exam: Normal Inspection - Respiratory Exam Respiratory Exam: Clear to PA & Lateral, NORMAL BREATHING PATTERN. absent: Wheezes, Respiratory Distress - Cardiovascular Exam Cardiovascular Exam: REGULAR RHYTHM, +S1, +S2 - GI/Abdominal Exam GI & Abdominal Exam: Normal Bowel Sounds, Soft. absent: Guarding, Rebound, Tenderness - Neurological Exam Neurological exam: Alert, Oriented x3 - Skin Skin Exam: Normal Color Discharge Plan - Discharge Medications Prescriptions: RX: Valsartan [Diovan] 160 mg PO DAILY #14 tab - Follow Up Plan Condition: FAIR Disposition: HOME/ ROUTINE Instructions: Diarrhea in Adolescents and Adults, Acute Abdomen (Belly Pain), Adult (DC), Low Magnesium Level (DC) Additional Instructions: follow up with primary care physician in 1-2 days and coal cager 1 week Referrals: Beronica Valdez MD [Family Provider] - Vinh Stacy MD [Medical Doctor] - Idris Oquendo MD, PhD [Staff Provider] - <Bjorn Newell - Last Filed: 10/23/18 17:26> Provider - Provider Date of Admission: 10/22/18 18:19 Attending physician: Bjorn Newell MD Consults: 10/23/18 08:43 Gastroenterology Consult Stat Comment: Consulting Provider: Idris Oquendo Consulting Physician: Idris Oquendo Reason for Consult: abdominal pain, abnormal CT A/P 10/23/18 11:06 Nephrology Consult Stat Comment: Consulting Provider: Vinh Stacy Consulting Physician: Vinh Stacy Reason for Consult: hyponatremia, hypokalemia Hospital Course - Lab Results Lab Results: Micro Results 10/22/18 17:05 Blood-Venous Blood Culture - Preliminary NO GROWTH AFTER 24 HOURS Most Recent Lab Values WBC 7.2 K/uL (4.8-10.8) 10/23/18 05:50 RBC 4.50 Mil/uL (3.80-5.20) 10/23/18 05:50 Hgb 10.9 g/dL (12.0-16.0) L 10/23/18 05:50 Hct 32.2 % (34.0-47.0) L 10/23/18 05:50 MCV 71.5 fl (81.0-99.0) L 10/23/18 05:50 MCH 24.3 pg (27.0-31.0) L 10/23/18 05:50 MCHC 33.9 g/dL (33.0-37.0) 10/23/18 05:50 RDW 14.8 % (11.5-14.5) H 10/23/18 05:50 Plt Count 252 K/uL (130-400) 10/23/18 05:50 MPV 7.9 fl (7.2-11.7) 10/23/18 05:50 Neut % (Auto) 67.4 % (50.0-75.0) 10/23/18 05:50 Lymph % (Auto) 17.7 % (20.0-40.0) L 10/23/18 05:50 [place] % (Auto) 11.3 % (0.0-10.0) H 10/23/18 05:50 Eos % (Auto) 2.6 % (0.0-4.0) 10/23/18 05:50 Baso % (Auto) 1.0 % (0.0-2.0) 10/23/18 05:50 Neut # (Auto) 4.8 K/uL (1.8-7.0) 10/23/18 05:50 Lymph # (Auto) 1.3 K/uL (1.0-4.3) 10/23/18 05:50 [place] # (Auto) 0.8 K/uL (0.0-0.8) 10/23/18 05:50 Eos # (Auto) 0.2 K/uL (0.0-0.7) 10/23/18 05:50 Baso # (Auto) 0.1 K/uL (0.0-0.2) 10/23/18 05:50 PT 11.9 Seconds (9.8-13.1) 10/22/18 17:05 INR 1.0 10/22/18 17:05 APTT 36.9 Seconds (25.6-37.1) 10/22/18 17:05 Sodium 126 mmol/l (132-148) L 10/23/18 14:28 Potassium 4.2 MMOL/L (3.6-5.0) 10/23/18 14:28 Chloride 82 mmol/L (98-107) L 10/23/18 14:28 Carbon Dioxide 27 mmol/L (22-30) 10/23/18 14:28 Anion Gap 21 (10-20) H 10/23/18 14:28 BUN 9 mg/dl (7-17) 10/23/18 14:28 Creatinine 0.5 mg/dl (0.7-1.2) L 10/23/18 14:28 Est GFR ( Amer) > 60 10/23/18 14:28 Est GFR (Non-Af Amer) > 60 10/23/18 14:28 POC Glucose (mg/dL) 227 mg/dL (65-110) H 10/23/18 17:08 Random Glucose 253 mg/dL (65-105) H 10/23/18 14:28 Lactic Acid 3.3 mmol/L (0.7-2.1) H 10/22/18 17:05 Calcium 8.8 mg/dL (8.4-10.2) 10/23/18 14:28 Phosphorus 2.5 mg/dl (2.5-4.5) 10/22/18 17:05 Magnesium 1.5 MG/DL (1.6-2.3) L 10/23/18 05:50 Total Bilirubin 0.5 mg/dl (0.2-1.3) 10/22/18 17:05 AST 41 U/L (14-36) H 10/22/18 17:05 ALT 33 U/L (9-52) 10/22/18 17:05 Alkaline Phosphatase 126 U/L (38-126) D 10/22/18 17:05 Troponin I < 0.0120 ng/mL (0.00-0.120) 10/22/18 17:05 NT-Pro-B Natriuret Pep 181 pg/ml (0-900) 10/22/18 17:05 Total Protein 8.5 G/DL (6.3-8.2) H 10/22/18 17:05 Albumin 4.5 g/dL (3.5-5.0) 10/22/18 17:05 Globulin 4.0 gm/dL (2.2-3.9) H 10/22/18 17:05 Albumin/Globulin Ratio 1.1 (1.0-2.1) 10/22/18 17:05 Lipase 197 U/L (23-300) 10/22/18 17:05 TSH 3rd Generation 2.17 mIU/ML (0.46-4.68) 10/22/18 17:05 Urine Color Yellow (YELLOW) 10/22/18 17:05 Urine Clarity Clear (Clear) 10/22/18 17:05 Urine pH 7.0 (5.0-8.0) 10/22/18 17:05 Ur Specific [place] 1.008 (1.003-1.030) 10/22/18 17:05 Urine Protein 100 mg/dL (NEGATIVE) 10/22/18 17:05 Urine Glucose (UA) 50 mg/dL (NEGATIVE) 10/22/18 17:05 Urine Ketones Negative mg/dL (NEGATIVE) 10/22/18 17:05 Urine Blood Negative (NEGATIVE) 10/22/18 17:05 Urine Nitrate Negative (NEGATIVE) 10/22/18 17:05 Urine Bilirubin Negative (NEGATIVE) 10/22/18 17:05 Urine Urobilinogen 0.2-1.0 mg/dL (0.2-1.0) 10/22/18 17:05 Ur Leukocyte Esterase Negative Luis/uL (Negative) 10/22/18 17:05 Urine RBC (Auto) 1 /hpf (0-3) 10/22/18 17:05 Urine Microscopic WBC 2 /hpf (0-5) 10/22/18 17:05 Ur Squamous Epith Cells 1 /hpf (0-5) 10/22/18 17:05 Amorphous Sediment Rare /ul (<OCC) H 10/22/18 17:05 Urine Bacteria Rare (<OCC) 10/22/18 17:05 Ur Random Sodium 67 meq/L 10/22/18 11:44 Ur Random Potassium 37.5 mmol/L 10/22/18 11:44 Influenza Typ A,B (EIA) Negative for flu a/b (NEGATIVE) 10/22/18 18:36 Attending/Attestation - Attestation I have personally seen and examined this patient.: Yes I have fully participated in the care of the patient.: Yes I have reviewed all pertinent clinical information, including history, physical exam and plan: Yes Notes (Text): 10/23/18 17:22 Patient seen and examined with resident. Case discussed and agreed with assessment. Hyponatremia improved although not completely resolved but patient patient felt better. Patient discharged in stable condition and was advised to stop HCTZ. She will follow up with her PCP, Dr Valdez, within a week.
[2018-10-23 15:57] VITALS: RESP 20; TEMP 97.9; O2SAT 99
[2018-10-23 17:17] VITALS: BP 160/82
[2018-10-23] MEDS ORDERED: Pravastatin Sodium 40 MG TAB PO SCH (22:00)
--- NOTE | 2018-10-23 23:27 | CON ---
DATE: 10/23/2018 REFERRING DOCTOR: Bjorn Newell MD REASON FOR CONSULTATION: Colitis. HISTORY OF PRESENT ILLNESS: This is a 72-year-old female with history of diabetes, hypertension, asthma, hyperlipidemia, CAD, who is brought in for recent cough, abdominal pain discomfort with some diarrhea for the past week or so. The patient was given antibiotics and then the diarrhea returned. She is currently lying in bed comfortable, in no apparent distress. PAST MEDICAL HISTORY: As above. PAST SURGICAL HISTORY: As above. MEDICATIONS: Reviewed. REVIEW OF SYSTEMS: All other systems have been obtained and negative apart from the HPI. PHYSICAL EXAMINATION: VITAL SIGNS: Here in the hospital are grossly unremarkable. GENERAL: A pleasant elderly-appearing female, lying in bed comfortably, no acute distress. HEENT: Head: Normocephalic, atraumatic. Eyes: Pupils are equally reactive to light bilaterally. No conjunctival pallor or icterus. NECK: Supple. Normal range of motion. No lymphadenopathy appreciated. LUNGS: Coarse breath sounds and wheezing bilaterally. HEART: S1 and S2. Regular rate and rhythm. ABDOMEN: Soft, some discomfort, bowel sounds present. No rebound. No guarding. RECTAL: Deferred. EXTREMITIES: Pulses felt bilaterally. SKIN: Warm, dry and intact. NEUROLOGIC: Alert and oriented x3. LABORATORY DATA: Labs and radiology have been reviewed. WBC of 7.2, hemoglobin 10.9, hematocrit 32.2. Sodium 126. ASSESSMENT: This is a 72-year-old with diarrhea and pain. Pending for the results of the CAT scan. PLAN: We will treat for colitis once the CAT scan results are in. We will follow up the patient. We will need colostomy, which can be placed as an outpatient. Idris Oquendo MD/ PhD cc: Bjorn Newell MD
== END 2018-10-23 19:30 | disposition home or self-care (01) ==
LOC: H.ER 15:21 → H.ERHOLD 18:19 → INTOOBSV 18:19 → H.MEDSURG1 10-23 12:04
DX: E87.1 Hypo-osmolality and hyponatremia (principal); E87.6 Hypokalemia; I11.9 Hypertensive heart disease without heart failure; I25.10 Atherosclerotic heart disease of native coronary artery without angina pectoris; J45.20 Mild intermittent asthma, uncomplicated; J98.11 Atelectasis; K52.9 Noninfective gastroenteritis and colitis, unspecified; Z96.653 Presence of artificial knee joint, bilateral; H26.9 Unspecified cataract; L40.9 Psoriasis, unspecified; Z79.84 Long term (current) use of oral hypoglycemic drugs; Z79.899 Other long term (current) drug therapy; R42 Dizziness and giddiness; E11.9 Type 2 diabetes mellitus without complications; E78.5 Hyperlipidemia, unspecified; E83.42 Hypomagnesemia
CPT/HCPCS: 36415; 71046; 74177; 80048; 80053; 81003; 82436; 82948; 83605; 83690; 83735; 83880; 84100; 84132; 84300; 84443; 84484; 85025; 85610; 85730; 87040; 87086; 87449; 87804; 93005; 96361; 96365; 96366; 96372; 99285; G0378; J1650; J3480; J7030; Q9966; Q9967

== ENCOUNTER 2018-10-24 10:18 | Inpatient (IN) | payer MEDICARE, BC ==
[2018-10-24] MEDS ORDERED: Sodium Chloride 0.9% 1,000 ML IV STA (10:37)
--- NOTE | 2018-10-24 11:06 | ED PDOC ---
HPI: Altered Mental Status Time Seen by Provider: 10/24/18 10:23 Chief Complaint (Nursing): Altered Mental Status Chief Complaint (Provider): Altered Mental Status History Per: Family History/Exam Limitations: Clinical Condition Onset/Duration Of Symptoms: Hrs, Worse Since Description Of Symptoms: Confused Additional History Per: EMS Additional Complaint(s): 72 year old female with PMHx of HTN and diabetes presents to the ED via paramedics with worsening confusion since discharge 2 days ago. Patient is found to be hyperglycemic and hyponatremic in previous admission which resulted to altered metal status. Patient had an episode of diarrhea. Otherwise, as per family, no vomiting, fever, head injury, loss of consciousness or focal weaknes s. PMD: Beronica Valdez Past Medical History Reviewed: Historical Data, Nursing Documentation, Vital Signs - Medical History PMH: Asthma, CAD, Diabetes, HTN, Hyperlipidemia Denies: HIV, Chronic Kidney Disease - Family History Family History: States: Unknown Family Hx, Hypertension - Home Medications Home Medications: Ambulatory Orders Medication Instructions Recorded Carvedilol [Coreg] 25 mg PO Q12 06/17/16 Glimepiride [Amaryl] 4 mg PO BID 06/17/16 Linagliptin [Tradjenta] 5 mg PO DAILY 06/17/16 MetFORMIN ER [Glucophage XR] 750 mg PO BID 06/17/16 Multivitamin [Multi-Vitamin Daily] 1 tab PO DAILY 06/17/16 Pravastatin Sodium [Pravachol] 40 mg PO HS 06/17/16 amLODIPine [Norvasc] 5 mg PO DAILY 06/17/16 Albuterol Sulfate [Proair Hfa] 2 puff IH Q6 PRN 10/24/18 Valsartan/Hydrochlorothiazide 1 tab PO DAILY 10/24/18 [Diovan Hct 160-25 mg Tablet] - Allergies Allergies/Adverse Reactions: Allergies Allergy/AdvReac Type Severity Reaction Status Date / Time acetaminophen [From Tylenol] Allergy RASH Verified 10/22/18 15:36 chlorophyllin Allergy RASH Verified 10/22/18 15:36 Sulfa (Sulfonamide Allergy RASH Verified 10/22/18 15:36 Antibiotics) baking soda Allergy RASH Uncoded 10/22/18 15:36 Review of Systems Review Of Systems: ROS cannot be obtained secondary to pt's inabilty to answer questions. Physical Exam - Reviewed Nursing Documentation Reviewed: Yes Vital Signs Reviewed: Yes - Physical Exam Appears: Positive for: Non-toxic, No Acute Distress Head Exam: Positive for: ATRAUMATIC, NORMAL INSPECTION, NORMOCEPHALIC Skin: Positive for: Normal Color, Warm, Dry. Negative for: Rash Eye Exam: Positive for: EOMI, Normal appearance, PERRL ENT: Positive for: Normal ENT Inspection Neck: Positive for: Normal, Painless ROM, Supple. Negative for: Decreased ROM Cardiovascular/Chest: Positive for: Regular Rate, Rhythm Respiratory: Positive for: Normal Breath Sounds Gastrointestinal/Abdominal: Positive for: Normal Exam, Soft. Negative for: Tenderness Back: Positive for: Normal Inspection Extremity: Positive for: Normal ROM. Negative for: Tenderness, Pedal Edema, Deformity Neurologic/Psych: Positive for: Alert, Oriented (0x), Other (awake, confused and no focal weakness) - Laboratory Results Result Diagrams: 10/24/18 11:10 10/24/18 11:10 - ECG Pulse Ox Interpretation: Normal Medical Decision Making Medical Decision Making: Time: 1036 Impression: Accucheck presents glucose of 274 r/o hyponatremia, DKA as causes for altered metal status. Will obtain labs and provide IV Plan: --EKG --CMP --Troponin --CBC w/ differential --Glucose, POC --Normal Saline 100 mls/hr --Reevaluation Scribe Attestation: Documented by Kiarra Stinson, acting as a scribe for Vinh Peña MD. Provider Scribe Attestation: All medical record entries made by the Scribe were at my direction and personally dictated by me. I have reviewed the chart and agree that the record accurately reflects my personal performance of the history, physical exam, medical decision making, and the department course for this patient. I have also personally directed, reviewed, and agree with the discharge instructions and disposition. Disposition - Clinical Impression Clinical Impression: Hyponatremia, Acute metabolic encephalopathy - Patient ED Disposition Is Patient to be Admitted: Yes - Disposition Disposition Time: 12:25 Condition: FAIR Forms: [employer] (Eritrean) - Pt Status Changed To: Hospital Disposition Of: Inpatient - Admit Certification Admit to Inpatient:: After my assessment, the patient will require hospitalization for at least two midnights. This is because of the severity of symptoms shown, intensity of services needed, and/or the medical risk in this patient being treated as an outpatient. - POA Present On Arrival: None
[2018-10-24 11:25] LABS: BASO # 0.1 K/uL (0.0-0.2); BASO % 0.7 % (0.0-2.0); EOS # 0.3 K/uL (0.0-0.7); EOS % 3.6 % (0.0-4.0); HEMOGLOBIN 10.7 g/dL (12.0-16.0); LYMPH # 1.2 K/uL (1.0-4.3); LYMPH % 13.8 % (20.0-40.0); MEAN CELL VOLUME 73.9 fl (81.0-99.0); MEAN CORPUSCULAR HEMOGLOBIN 24.6 pg (27.0-31.0); MEAN CORPUSCULAR HGB CONC 33.3 g/dL (33.0-37.0); MEAN PLATELET VOLUME 8.1 fl (7.2-11.7); MONO # 0.9 K/uL (0.0-0.8); MONO % 10.9 % (0.0-10.0); NRBC % 0.1 % (0.0-0.0); RBC 4.33 Mil/uL (3.80-5.20); RED CELL DISTRIBUTION WIDTH 15.1 % (11.5-14.5); WHITE BLOOD COUNT 8.5 K/uL (4.8-10.8)
[2018-10-24 11:50] LABS: ALB/GLOB RATIO 1.1 (1.0-2.1); ALBUMIN 4.1 g/dL (3.5-5.0); ALT/SGPT 22 U/L (9-52); AST/SGOT 23 U/L (14-36); BLOOD UREA NITROGEN 14 mg/dl (7-17); CALCIUM 9.1 mg/dL (8.4-10.2); GFR NON-AFRICAN AMERICAN > 60
--- NOTE | 2018-10-24 13:11 | CT ---
Date of service: 10/24/2018 PROCEDURE: CT HEAD WITHOUT CONTRAST. HISTORY: r/o bleed COMPARISON: 10/26/2017. TECHNIQUE: Axial computed tomography images were obtained through the head/brain without intravenous contrast. Radiation dose: Total exam DLP = 763.22 mGy-cm. This CT exam was performed using one or more of the following dose reduction techniques: Automated exposure control, adjustment of the mA and/or kV according to patient size, and/or use of iterative reconstruction technique. FINDINGS: HEMORRHAGE: No intracranial hemorrhage. BRAIN: There are mild chronic microangiopathic changes. There is no mass, mass effect or abnormal extra-axial fluid collection. There is no territorial infarction. The midline sagittal structures are normal. VENTRICLES: There is mild age-related global parenchymal volume loss and proportionate enlargement of the ventricles and cortical sulci. CALVARIUM: There is no calvarial fracture or extracranial soft tissue swelling. PARANASAL SINUSES: Predominantly clear. MASTOID AIR CELLS: Predominantly clear. OTHER FINDINGS: None. IMPRESSION: No acute intracranial abnormality. No significant interval change.
[2018-10-24] MEDS ORDERED: Dextrose 50% SYRINGE Inj (50 ml) IV PRN (14:10)
[2018-10-24] MEDS ORDERED: Glucagon Recombinant 1 mg Inj IM PRN (14:10)
[2018-10-24] MEDS ORDERED: Dextrose 50% SYRINGE Inj (50 ml) IVP PRN (14:10)
--- NOTE | 2018-10-24 15:27 | CP.PCM.HP ---
History of Present Illness - History of Present Illness History of Present Illness: 72 year old female accompanied by her son and daughter with a PMH hypertension, mild asthma, type 2 diabetes, hyperlipidemia, CAD who presented to the emergency department via EMS for evaluation of confusion since last night. Daughter reports patient woke up at 5 am this morning and was not making sense when she was speaking. Patient was admitted on 10/22/18 for electrolytes disturbances including hyponatreamia, hypokalemia and hypomagnesemia. Patient was discharged yesterday after having serum Na 126 ( corrected serum Na of 128). Patient reports she had one episode of diarrhea yesterday before discharge but diarrhea since then. Denies any abdominal pain, nausea, vomiting, fever or chills. Today, in the ER, patient's sodium is 123 and admitted for hyponatremia and altered mental status. PMD: Beronica Valdez PMH: hypertension, mild asthma, type 2 diabetes, hyperlipidemia, CAD, hyponatremia Past Surg hx: bilateral knee replacement, bilateral cataract Social hx: denies tobacco, alcohol, drug use. Lives with , independent of ADLs. Walks with cane. Fam hx: [place] Allergies: Tylenol, sulfa Medications: tradjenta 5 mg, valsartan-hctz 160-25 daily, metformin 750 mg BID, amlodipine 5 mg daily, glimepiride 4 mg BID, pravastatin 40 mg QHS, Proair inhaler PRN (uses less than 1x a week) NOK/decision maker - Aries payan [phone] Code status: Full Code ED course: Vitals: bp 160/72, hr 80, RR 20, Temp 97.9 F, pulse ox 99% CBC: 8.5>10.7/32.0<274 CMP: Na 123, K 4.3, bs 274 Troponin x [address]: no acute intracranial abnormality ECG: normal sinus rhythm with first degress AV block 0.9 % NS at 100cc /hr Present on Admission - Present on Admission Any Indicators Present on Admission: No Review of Systems - Review of Systems All systems: reviewed and no additional remarkable complaints except (as mentioned in HPI) Past Patient History - Infectious Disease Hx of Infectious Diseases: None - Tetanus Immunizations Tetanus Immunization: Unknown - Past Medical History & Family History Past Medical History?: Yes - Past Social History Smoking Status: Never Smoked - CARDIAC Hx Hypertension: Yes - PULMONARY Hx Asthma: Yes - NEUROLOGICAL Hx Neurological Disorder: No - HEENT Hx HEENT Problems: Yes Hx Cataracts: Yes - RENAL Hx Chronic Kidney Disease: No - ENDOCRINE/METABOLIC Hx Endocrine Disorders: Yes Hx Diabetes Mellitus Type 2: Yes - HEMATOLOGICAL/ONCOLOGICAL Hx Human Immunodeficiency Virus (HIV): No - INTEGUMENTARY Hx Dermatological Problems: No - MUSCULOSKELETAL/RHEUMATOLOGICAL Hx Musculoskeletal Disorders: Yes Hx Falls: Yes - GASTROINTESTINAL Hx Gastrointestinal Disorders: No - GENITOURINARY/GYNECOLOGICAL Hx Genitourinary Disorders: No - PSYCHIATRIC Hx Psychophysiologic Disorder: No Hx Substance Use: No - SURGICAL HISTORY Hx Surgeries: Yes Hx Cataract Extraction: Yes (bilateral) Hx Orthopedic Surgery: Yes (bilateral knee replacement) - ANESTHESIA Hx Anesthesia: Yes Hx Anesthesia Reactions: No Hx Malignant Hyperthermia: No Meds Allergies/Adverse Reactions: Allergies Allergy/AdvReac Type Severity Reaction Status Date / Time acetaminophen [From Tylenol] Allergy RASH Verified 10/22/18 15:36 chlorophyllin Allergy RASH Verified 10/22/18 15:36 Sulfa (Sulfonamide Allergy RASH Verified 10/22/18 15:36 Antibiotics) baking soda Allergy RASH Uncoded 10/22/18 15:36 Physical Exam - Constitutional Appears: No Acute Distress, Confused (incoherent talk and changes topics frequently.) - Eye Exam Eye Exam: EOMI, Normal appearance - ENT Exam ENT Exam: Mucous Membranes Moist, Normal Oropharynx - Neck Exam Neck exam: Positive for: Normal Inspection. Negative for: Meningismus - Respiratory Exam Respiratory Exam: Clear to Auscultation Bilateral, NORMAL BREATHING PATTERN. absent: Rhonchi, Wheezes - Cardiovascular Exam Cardiovascular Exam: REGULAR RHYTHM, +S1, +S2 - GI/Abdominal Exam GI & Abdominal Exam: Normal Bowel Sounds, Soft. absent: Guarding, Rebound, Rigid, Tenderness - Extremities Exam Extremities exam: Positive for: normal inspection. Negative for: calf tenderness - Back Exam Back exam: absent: CVA tenderness (L), CVA tenderness (R) - Neurological Exam Neurological exam: Alert (and pleasant) Additional comments: incoherent talk and changes topics frequently. - Skin Additional comments: scaly rash on B/L foot Results - Labs Result Diagrams: 10/24/18 11:10 10/24/18 11:10 Labs: Laboratory Results - last 24 hr 10/24/18 10/24/1810/24/19 10:40 11:10 11:10 WBC 8.5 RBC 4.33 Hgb 10.7 L Hct 32.0 L MCV 73.9 L D MCH 24.6 L MCHC 33.3 RDW 15.1 H Plt Count 274 MPV 8.1 Neut % (Auto) 71.0 Lymph % (Auto) 13.8 L [place] % (Auto) 10.9 H Eos % (Auto) 3.6 Baso % (Auto) 0.7 Neut # (Auto) 6.0 Lymph # (Auto) 1.2 [place] # (Auto) 0.9 H Eos # (Auto) 0.3 Baso # (Auto) 0.1 Sodium 123 L Potassium 4.3 Chloride 84 L Carbon Dioxide 24 Anion Gap 19 BUN 14 Creatinine 0.7 Est GFR ( Amer) > 60 Est GFR (Non-Af Amer) > 60 POC Glucose (mg/dL) 274 H Random Glucose 270 H Calcium 9.1 Total Bilirubin 0.4 AST 23 ALT 22 Alkaline Phosphatase 118 Troponin I < 0.0120 Total Protein 7.8 Albumin 4.1 Globulin 3.6 Albumin/Globulin Ratio 1.1 10/24/18 15:03 WBC RBC Hgb Hct MCV MCH MCHC RDW Plt Count MPV Neut % (Auto) Lymph % (Auto) [place] % (Auto) Eos % (Auto) Baso % (Auto) Neut # (Auto) Lymph # (Auto) [place] # (Auto) Eos # (Auto) Baso # (Auto) Sodium Potassium Chloride Carbon Dioxide Anion Gap BUN Creatinine Est GFR ( Amer) Est GFR (Non-Af Amer) POC Glucose (mg/dL) 194 H Random Glucose Calcium Total Bilirubin AST ALT Alkaline Phosphatase Troponin I Total Protein Albumin Globulin Albumin/Globulin Ratio Assessment & Plan - Assessment and Plan (Free Text) Assessment: 72 year old female accompanied by her son and daughter with a H hypertension, mild asthma, type 2 diabetes, hyperlipidemia, CAD who presented to the emergency department via EMS for evaluation of confusion since last night. In the ER, patient's sodium is 123 and admitted for hyponatremia and altered mental status. Plan: Altererd mental status likely secondary to hyponatremia -Na 123 on admission -c/w 0.9% NS at 100 cc/hr -Head CT: no acute intracranial pathology -f/u labs: urine lytes and BMP -Consult [facility] sawyer, Dr. Mcgee, f/u recommendation Diarrhea -Last diarrhea yesterday morning -Afebrile -CT on A/P on 10/22/18 was unremarkable -f/u symptoms Hypertension, chronic -hold diuretic -Continue with rest of the home medication -Monitor BP Diabetes Mellitus, type 2 - Hold Linagliptin metformin and glipizide for now - Accuchecks ACTID, insulin coverage scale and hypoglycemia protocol Hyperlipidemia - c/w simvastatin Asthma, mild intermittent -Stable -Duoneb PRN Q4 hrs Diet - Heart healthy diet Prophylaxis - SCD, lovenox in am - Protonix Plan discussed w/ Dr. Barroso
--- NOTE | 2018-10-24 20:29 | CARD ---
APPROVED REPORT Date of service: 10/24/2018 EKG Measurement Heart [id number] <Conclusion> Sinus rhythm with 1st degree AV block ST & T wave abnormality, consider anterior ischemia Abnormal ECG
[2018-10-24 21:32] LABS: BLOOD UREA NITROGEN 10 mg/dl (7-17); CALCIUM 9.5 mg/dL (8.4-10.2); GFR NON-AFRICAN AMERICAN > 60
[2018-10-24] MEDS: Insulin Regular 100 units/ml SC SCH ×2 (23:13→23:19)
[2018-10-24] MEDS: Pravastatin Sodium 40 MG TAB PO SCH (23:13)
[2018-10-24] MEDS: Sodium Chloride 0.9% 1,000 ML IV SCH (23:20)
[2018-10-25] MEDS: Sodium Chloride 0.9% 1,000 ML IV SCH ×2 (02:39→16:02)
--- NOTE | 2018-10-25 03:54 | CP.PCM.PCO ---
Addendum Addendum: Called by RN around 1045 pm - pt brought up from ED; son at bedside. Pt is walking around room, speaking but appears to not be making sense, son stating not at baseline and is the reason they brought her in today. Asking for sleeping medication for patient. Explained to son that due to her AMS, no sleeping medications are planned and we want to avoid giving her any sedating medications as much as possible. Patient somewhat re-directable at that time; agreed to lay down in bed with covers, lights turned off, advised son to minimize stimulation in room and allow calm environment. Received page again around 2:06 am; patient still agitated, no change from before, still trying to get out of bed, flailing her arms and hitting siderails of bed. Pt's daughter at bedside, trying to redirect patient and prevent against hitting her arms on bed rails, but to no avail. I again tried to calm patient down by minimizing disruptions in room; patient not redirectable at this time; agitated and continues to hit arms against railings. 0.5 mg haldol ordered.
[2018-10-25 05:52] LABS: BASO # 0.1 K/uL (0.0-0.2); BASO % 0.6 % (0.0-2.0); EOS # 0.2 K/uL (0.0-0.7); EOS % 2.1 % (0.0-4.0); HEMOGLOBIN 11.8 g/dL (12.0-16.0); LYMPH # 1.1 K/uL (1.0-4.3); LYMPH % 11.1 % (20.0-40.0); MEAN CELL VOLUME 74.4 fl (81.0-99.0); MEAN CORPUSCULAR HEMOGLOBIN 24.3 pg (27.0-31.0); MEAN CORPUSCULAR HGB CONC 32.7 g/dL (33.0-37.0); MONO # 0.7 K/uL (0.0-0.8); MONO % 6.8 % (0.0-10.0); NEUT # 7.8 K/uL (1.8-7.0); NEUT % 79.4 % (50.0-75.0); RBC 4.85 Mil/uL (3.80-5.20); RED CELL DISTRIBUTION WIDTH 15.1 % (11.5-14.5); WHITE BLOOD COUNT 9.9 K/uL (4.8-10.8)
[2018-10-25 06:16] LABS: ALB/GLOB RATIO 1.1 (1.0-2.1); ALBUMIN 4.4 g/dL (3.5-5.0); ALT/SGPT 24 U/L (9-52); AST/SGOT 28 U/L (14-36); BLOOD UREA NITROGEN 8 mg/dl (7-17); CALCIUM 9.6 mg/dL (8.4-10.2); GFR NON-AFRICAN AMERICAN > 60
[2018-10-25] MEDS: Insulin Regular 100 units/ml SC SCH ×4 (06:39→21:50)
[2018-10-25] MEDS ORDERED: Magnesium Sulfate 2 gm/50 ml 2 GM/50 ML BAG IVPB ONE (07:00)
[2018-10-25] MEDS: Multivitamin With Minerals Tab PO SCH (08:53)
[2018-10-25] MEDS: Enoxaparin 40 mg Syringe SC SCH (08:53)
--- NOTE | 2018-10-25 09:22 | CP.PCM.PN ---
Subjective - Date & Time of Evaluation Date of Evaluation: 10/25/18 Time of Evaluation: 09:20 - Subjective Subjective: Patient is a 72 years of age I was called to see her for hyponatremia. Patient is very agitated restless in bed in no history available from her as well as she is confused completely. However the history from the medical record indicated as follow 72 y/o female with PMH HTN , DM type II, dyslipidemia, CAD just discharged from hospital for hyponatremia , hypochloremia and confusion brought back by family for delirium and confusion . As per son and daughter patient is not herself and she is not making sense at times In ED her Na found to be 123 no seizure lie activity patient feeling thirsty will admit patient to telemetry for hyponatremia with confusion nephro consulted start NS @ 100 cc/hr Objective - Vital Signs/Intake and Output Vital Signs (last 24 hours): Temp Pulse Resp BP Pulse Ox 97.8 F 86 18 183/92 H 98 10/25/18 08:00 10/25/18 08:54 10/25/18 08:00 10/25/18 08:54 10/25/18 08:00 - Medications Medications: Current Medications Amlodipine Besylate (Norvasc) 10 mg PO DAILY [facility] Carvedilol (Coreg) 25 mg PO Q12 [facility] Last Admin: 10/25/18 08:54 Dose: 25 mg Dextrose (Dextrose 50% Inj) 0 ml IV STAT PRN; Protocol PRN Reason: Hypoglycemia Protocol Dextrose (Dextrose 50% Inj) 50 ml IVP ONCE PRN PRN Reason: Hypoglycemia Dextrose (Glutose 15) 0 gm PO ONCE PRN; Protocol PRN Reason: Hypoglycemia Protocol Enoxaparin Sodium (Lovenox) 40 mg SC DAILY [facility]; Protocol Last Admin: 10/25/18 08:53 Dose: 40 mg Glucagon (Glucagen Diagnostic Kit) 0 mg IM STAT PRN; Protocol PRN Reason: Hypoglycemia Protocol Sodium Chloride (Sodium Chloride 0.9%) 1,000 mls @ 100 mls/hr IV .Q10H [facility] Stop: 10/25/18 14:09 Last Admin: 10/25/18 02:39 Dose: 100 mls/hr Insulin Human Regular (Humulin R) 0 units SC ACHS [facility]; Protocol Last Admin: 10/25/18 06:39 Dose: 3 units Losartan Potassium (Cozaar) 50 mg PO DAILY [facility] Last Admin: 10/25/18 08:54 Dose: 50 mg Metformin HCl (Glucophage) 850 mg PO BIDWM [facility] Multivitamins/Minerals (Therapeutic-M Tab) 1 tab PO DAILY [facility] Last Admin: 10/25/18 08:53 Dose: 1 tab Pravastatin Sodium (Pravachol) 40 mg PO HS [facility] Last Admin: 10/24/18 23:13 Dose: 40 mg - Labs Labs: 10/25/18 04:10 10/25/18 04:10 - Constitutional Appears: No Acute Distress - Eye Exam Eye Exam: Conjunctival injection - ENT Exam ENT Exam: Mucous Membranes Moist - Neck Exam Neck Exam: absent: Lymphadenopathy - Respiratory Exam Respiratory Exam: NORMAL BREATHING PATTERN. absent: Chest Wall Tenderness - Cardiovascular Exam Cardiovascular Exam: absent: Gallop, JVD, Rubs - GI/Abdominal Exam GI & Abdominal Exam: Soft, Normal Bowel Sounds - Extremities Exam Extremities Exam: absent: Calf Tenderness - Back Exam Back Exam: absent: CVA tenderness (L), CVA tenderness (R) - Neurological Exam Neurological Exam: Altered
--- NOTE | 2018-10-25 09:25 | CP.PCM.CON ---
History of Present Illness - History of Present Illness History of Present Illness: Patient is a 72 years of age I was called to see her for hyponatremia. Patient is very agitated restless in bed in no history available from her as well as she is confused completely. However the history from the medical record indicated as follow 72 y/o female with PMH HTN , DM type II, dyslipidemia, CAD just discharged from hospital for hyponatremia , hypochloremia and confusion brought back by family for delirium and confusion . As per son and daughter patient is not herself and she is not making sense at times In ED her Na found to be 123 no seizure lie activity patient feeling thirsty will admit patient to telemetry for hyponatremia with confusion nephro consulted start NS @ 100 cc/hr Review of Systems - Constitutional Constitutional: Anorexia. absent: Chills - EENT Eyes: absent: Exophthalmos Nose/Mouth/Throat: absent: Epistaxis - Cardiovascular Cardiovascular: absent: Chest Pain, Dyspnea, Leg Edema - Respiratory Respiratory: absent: Cough, Hemoptysis - Gastrointestinal Gastrointestinal: absent: Abdominal Pain, Coffee Ground Emesis - Genitourinary Genitourinary: Nocturia - Musculoskeletal Musculoskeletal: absent: Back Pain, Numbness - Neurological Neurological: Abnormal Movements, Confusion - Psychiatric Psychiatric: Anxiety - Endocrine Endocrine: Fatigue - Hematologic/Lymphatic Hematologic: absent: Easy Bleeding Past Patient History - Infectious Disease Hx of Infectious Diseases: None - Tetanus Immunizations Tetanus Immunization: Unknown - Past Medical History & Family History Past Medical History?: Yes - Past Social History Smoking Status: Never Smoked - CARDIAC Hx Cardiac Disorders: Yes Hx Hypertension: Yes - PULMONARY Hx Respiratory Disorders: No - NEUROLOGICAL Hx Neurological Disorder: No - HEENT Hx HEENT Problems: No - RENAL Hx Chronic Kidney Disease: No - ENDOCRINE/METABOLIC Hx Endocrine Disorders: Yes Hx Diabetes Mellitus Type 2: Yes - HEMATOLOGICAL/ONCOLOGICAL Hx Blood Disorders: No Hx AIDS: No Hx Human Immunodeficiency Virus (HIV): No - INTEGUMENTARY Hx Dermatological Problems: No - MUSCULOSKELETAL/RHEUMATOLOGICAL Hx Musculoskeletal Disorders: Yes Hx Arthritis: Yes Hx Falls: No - GASTROINTESTINAL Hx Gastrointestinal Disorders: No - GENITOURINARY/GYNECOLOGICAL Hx Genitourinary Disorders: No - PSYCHIATRIC Hx Psychophysiologic Disorder: No Hx Substance Use: No - SURGICAL HISTORY Hx Surgeries: Yes Hx Cataract Extraction: Yes (bilateral) Hx Orthopedic Surgery: Yes (bilateral knee replacement) - ANESTHESIA Hx Anesthesia: Yes Hx Anesthesia Reactions: No Hx Malignant Hyperthermia: No Meds Allergies/Adverse Reactions: Allergies Allergy/AdvReac Type Severity Reaction Status Date / Time acetaminophen [From Tylenol] Allergy RASH Verified 10/22/18 15:36 chlorophyllin Allergy RASH Verified 10/22/18 15:36 Sulfa (Sulfonamide Allergy RASH Verified 10/22/18 15:36 Antibiotics) baking soda Allergy RASH Uncoded 10/22/18 15:36 - Medications Medications: Current Medications Amlodipine Besylate (Norvasc) 10 mg PO DAILY [facility] Carvedilol (Coreg) 25 mg PO Q12 [facility] Last Admin: 10/25/18 08:54 Dose: 25 mg Dextrose (Dextrose 50% Inj) 0 ml IV STAT PRN; Protocol PRN Reason: Hypoglycemia Protocol Dextrose (Dextrose 50% Inj) 50 ml IVP ONCE PRN PRN Reason: Hypoglycemia Dextrose (Glutose 15) 0 gm PO ONCE PRN; Protocol PRN Reason: Hypoglycemia Protocol Enoxaparin Sodium (Lovenox) 40 mg SC DAILY [facility]; Protocol Last Admin: 10/25/18 08:53 Dose: 40 mg Glucagon (Glucagen Diagnostic Kit) 0 mg IM STAT PRN; Protocol PRN Reason: Hypoglycemia Protocol Sodium Chloride (Sodium Chloride 0.9%) 1,000 mls @ 100 mls/hr IV .Q10H [facility] Stop: 10/25/18 14:09 Last Admin: 10/25/18 02:39 Dose: 100 mls/hr Insulin Human Regular (Humulin R) 0 units SC ACHS [facility]; Protocol Last Admin: 10/25/18 06:39 Dose: 3 units Losartan Potassium (Cozaar) 50 mg PO DAILY [facility] Last Admin: 10/25/18 08:54 Dose: 50 mg Metformin HCl (Glucophage) 850 mg PO BIDWM [facility] Multivitamins/Minerals (Therapeutic-M Tab) 1 tab PO DAILY [facility] Last Admin: 10/25/18 08:53 Dose: 1 tab Pravastatin Sodium (Pravachol) 40 mg PO HS [facility] Last Admin: 10/24/18 23:13 Dose: 40 mg Physical Exam - Constitutional Appears: No Acute Distress - Eye Exam Eye Exam: Conjunctival injection - ENT Exam ENT Exam: Mucous Membranes Dry - Neck Exam Neck exam: Negative for: Lymphadenopathy - Respiratory Exam Respiratory Exam: NORMAL BREATHING PATTERN. absent: Chest Wall Tenderness, Rales, Rhonchi - Cardiovascular Exam Cardiovascular Exam: absent: JVD, Rubs - GI/Abdominal Exam GI & Abdominal Exam: Normal Bowel Sounds - Extremities Exam Extremities exam: Negative for: calf tenderness - Back Exam Back exam: absent: CVA tenderness (L), CVA tenderness (R) - Neurological Exam Neurological exam: Altered - Psychiatric Exam Psychiatric exam: Agitated Results - Vital Signs Recent Vital Signs: Last Vital Signs Temp 97.8 F 10/25/18 08:00 Pulse 86 10/25/18 08:54 Resp 18 10/25/18 08:00 BP 183/92 H 10/25/18 08:54 Pulse Ox 98 10/25/18 08:00 - Labs Result Diagrams: 10/25/18 04:10 10/25/18 04:10 Labs: Laboratory Results - last 24 hr 10/24/18 10/24/18 10/24/18 10:40 11:10 11:10 WBC 8.5 RBC 4.33 Hgb 10.7 L Hct 32.0 L MCV 73.9 L D MCH 24.6 L MCHC 33.3 RDW 15.1 H Plt Count 274 MPV 8.1 Neut % (Auto) 71.0 Lymph % (Auto) 13.8 L [place] % (Auto) 10.9 H Eos % (Auto) 3.6 Baso % (Auto) 0.7 Neut # (Auto) 6.0 Lymph # (Auto) 1.2 Hale # (Auto) 0.9 H Eos # (Auto) 0.3 Baso # (Auto) 0.1 Sodium 123 L Potassium 4.3 Chloride 84 L Carbon Dioxide 24 Anion Gap 19 BUN 14 Creatinine 0.7 Est GFR ( Amer) > 60 Est GFR (Non-Af Amer) > 60 POC Glucose (mg/dL) 274 H Random Glucose 270 H Serum Osmolality Calcium 9.1 Phosphorus Magnesium Total Bilirubin 0.4 AST 23 ALT 22 Alkaline Phosphatase 118 Troponin I < 0.0120 Total Protein 7.8 Albumin 4.1 Globulin 3.6 Albumin/Globulin Ratio 1.1 10/24/18 10/24/18 10/24/18 15:03 20:45 20:45 WBC RBC Hgb Hct MCV MCH MCHC RDW Plt Count MPV Neut % (Auto) Lymph % (Auto) Hale % (Auto) Eos % (Auto) Baso % (Auto) Neut # (Auto) Lymph # (Auto) Hale # (Auto) Eos # (Auto) Baso # (Auto) Sodium 128 L Potassium 3.8 Chloride 85 L Carbon Dioxide 29 Anion Gap 18 BUN 10 Creatinine 0.4 L Est GFR ( Amer) > 60 Est GFR (Non-Af Amer) > 60 POC Glucose (mg/dL) 194 H Random Glucose 249 H Serum Osmolality 269 L Calcium 9.5 Phosphorus Magnesium Total Bilirubin AST ALT Alkaline Phosphatase Troponin I Total Protein Albumin Globulin Albumin/Globulin Ratio 10/24/18 10/25/18 10/25/18 22:39 04:10 04:10 WBC 9.9 RBC 4.85 Hgb 11.8 L Hct 36.1 MCV 74.4 L MCH 24.3 L MCHC 32.7 L RDW 15.1 H Plt Count 289 MPV 8.0 Neut % (Auto) 79.4 H Lymph % (Auto) 11.1 L Hale % (Auto) 6.8 Eos % (Auto) 2.1 Baso % (Auto) 0.6 Neut # (Auto) 7.8 H Lymph # (Auto) 1.1 Hale # (Auto) 0.7 Eos # (Auto) 0.2 Baso # (Auto) 0.1 Sodium 130 L Potassium 4.5 Chloride 85 L Carbon Dioxide 30 Anion Gap 20 BUN 8 Creatinine 0.5 L Est GFR ( Amer) > 60 Est GFR (Non-Af Amer) > 60 POC Glucose (mg/dL) 246 H Random Glucose 272 H Serum Osmolality Calcium 9.6 Phosphorus 3.1 Magnesium 1.1 L Total Bilirubin 0.6 AST 28 ALT 24 Alkaline Phosphatase 122 Troponin I < 0.0120 Total Protein 8.3 H Albumin 4.4 Globulin 3.9 Albumin/Globulin Ratio 1.1 Assessment & Plan (1) Acute metabolic encephalopathy Status: Acute Priority: High (2) Hyponatremia Assessment and Plan: Patient admitted with hyponatremia serum sodium 123 which has gone up to 130 this morning Hypochloremia Above hyponatremia and hypochloremia probably from hydrochlorothiazide and has been taking 25 mg daily Patient restless confused agitated Rule out intracranial pathology Recommendation Discontinue hydrochlorothiazide and all diuretics Spoke to the son not to give her hydrochlorothiazide Continue 0.9 normal saline and serum sodium has been going up in the range of 7 mEq last 24 hours which is adequate. Suggest to do CAT scan with IV contrast of the brain to rule out intracranial pathology or MRI Status: Acute Priority: High
--- NOTE | 2018-10-25 10:08 | CP.PCM.PN ---
Subjective - Date & Time of Evaluation Date of Evaluation: 10/25/18 Time of Evaluation: 09:45 - Subjective Subjective: Patient seen and examined this morning with daughter present in the room. Patient seems to be in acute delirium and per daughter her confusion is worsening. Daughter states patient has not been sleeping well for last 4 days. Patient was able to sleep for couple of hours with Haldol 0.5 mg last night. Denies any history of psychiatric illness. Does not look in acute distress but talking incoherently. Elevated BP, otherwise stable vitals. Objective - Vital Signs/Intake and Output Vital Signs (last 24 hours): Temp Pulse Resp BP Pulse Ox 97.8 F 86 18 183/92 H 98 10/25/18 08:00 10/25/18 09:55 10/25/18 08:00 10/25/18 09:55 10/25/18 08:00 - Medications Medications: Current Medications Amlodipine Besylate (Norvasc) 10 mg PO DAILY [facility] Last Admin: 10/25/18 09:55 Dose: 10 mg Carvedilol (Coreg) 25 mg PO Q12 [facility] Last Admin: 10/25/18 08:54 Dose: 25 mg Dextrose (Dextrose 50% Inj) 0 ml IV STAT PRN; Protocol PRN Reason: Hypoglycemia Protocol Dextrose (Dextrose 50% Inj) 50 ml IVP ONCE PRN PRN Reason: Hypoglycemia Dextrose (Glutose 15) 0 gm PO ONCE PRN; Protocol PRN Reason: Hypoglycemia Protocol Enoxaparin Sodium (Lovenox) 40 mg SC DAILY [facility]; Protocol Last Admin: 10/25/18 08:53 Dose: 40 mg Glucagon (Glucagen Diagnostic Kit) 0 mg IM STAT PRN; Protocol PRN Reason: Hypoglycemia Protocol Sodium Chloride (Sodium Chloride 0.9%) 1,000 mls @ 100 mls/hr IV .Q10H [facility] Stop: 10/25/18 14:09 Last Admin: 10/25/18 02:39 Dose: 100 mls/hr Insulin Human Regular (Humulin R) 0 units SC ACHS [facility]; Protocol Last Admin: 10/25/18 06:39 Dose: 3 units Losartan Potassium (Cozaar) 50 mg PO DAILY [facility] Last Admin: 10/25/18 08:54 Dose: 50 mg Metformin HCl (Glucophage) 850 mg PO BIDWM [facility] Multivitamins/Minerals (Therapeutic-M Tab) 1 tab PO DAILY [facility] Last Admin: 10/25/18 08:53 Dose: 1 tab Pravastatin Sodium (Pravachol) 40 mg PO HS [facility] Last Admin: 10/24/18 23:13 Dose: 40 mg - Labs Labs: 10/25/18 04:10 10/25/18 04:10 - Constitutional Appears: Non-toxic, No Acute Distress, Confused - Head Exam Head Exam: NORMAL INSPECTION - Eye Exam Eye Exam: Normal appearance - ENT Exam ENT Exam: Mucous Membranes Moist - Neck Exam Neck Exam: Normal Inspection - Respiratory Exam Respiratory Exam: Clear to Ausculation Bilateral, NORMAL BREATHING PATTERN. absent: Rhonchi, Wheezes - Cardiovascular Exam Cardiovascular Exam: REGULAR RHYTHM, +S1, +S2 - GI/Abdominal Exam GI & Abdominal Exam: Distended, Soft, Normal Bowel Sounds. absent: Guarding, Tenderness - Extremities Exam Extremities Exam: Normal Inspection. absent: Calf Tenderness - Neurological Exam Neurological Exam: Altered - Skin Skin Exam: Dry, Warm Additional comments: scaly rash on B/L foot Assessment and Plan - Assessment and Plan (Free Text) Assessment: 72 year old female accompanied by her son and daughter with a H hypertension, mild asthma, type 2 diabetes, hyperlipidemia, CAD who presented to the emergency department via EMS for evaluation of confusion since last night. In the ER, patient's sodium is 123 and admitted for hyponatremia and altered mental status. Today, patient is in acute delirium. Plan: Acute Delirium -Head CT: no acute intracranial pathology -Hyponatremia improving -Brain MRI ordered, f/u result -Neurology consult: Dr. Valadez, f/u recommendation -Psychiatry consult: Dr. Bonilla, f/u recs -Monitor symptoms Hyponatremia: -Na 123 on admission -Na 130 this morning (improving) -c/w 0.9% NS at 100 cc/hr -Head CT: no acute intracranial pathology -f/u labs: urine lytes and BMP -Consult digital watch assembler, Dr. Mcgee, rec appreciated. -discontinue HCTZ Hypertension, chronic -Not controlled -hold diuretic -Increase amlodine to 10 mg po daily -Continue with rest of the home medication -Monitor BP Microcytic anemia, unclear etiology -stable -H&H 11.8/36.1 -f/u iron studies Diarrhea -Last diarrhea 2 days ago -Afebrile with stable vitals -CT on A/P on 10/22/18 was unremarkable -f/u symptoms Diabetes Mellitus, type 2 - Hold Linagliptin glipizide for now -start Metformin 850 mg po bid -Accuchecks ACTID, insulin coverage scale and hypoglycemia protocol Hyperlipidemia and CAD - c/w simvastatin Asthma, mild intermittent -Stable -Duoneb PRN Q4 hrs Diet - Heart healthy diet Prophylaxis - SCd amd lovenox Plan discussed w/ Dr. Barroso
[2018-10-25 11:00] LABS: IRON 44 ug/dL (37-170)
[2018-10-25 11:10] LABS: % IRON SATURATION 14 % (20-55); TOTAL IRON BINDING CAPACITY 318 ug/dL (250-450)
--- NOTE | 2018-10-25 12:37 | CP.PCM.CON ---
History of Present Illness - History of Present Illness History of Present Illness: Psychiatry consult Patient evaluated w/ her son present in the room. Patient is a limited historian at this time due to acute delirium. History obtained from the chart. HPI: 72 year old female accompanied by her son and daughter with a PMH hypertension, mild asthma, type 2 diabetes, hyperlipidemia, CAD who presented to the emergency department via EMS for evaluation of confusion. Patient admitted w/ AMS and hyponatremia. She is currently A + O x self, location and Oct 2018. She is lethargic during interview and can not provide any other relevant information. She does not know why she is in the hospital. PMD: Beronica Valdez PPH: No past psychiatric history PMH: hypertension, mild asthma, type 2 diabetes, hyperlipidemia, CAD, hyponatremia Past Surg hx: bilateral knee replacement, bilateral cataract Social hx: denies tobacco, alcohol, drug use. Lives with , independent of ADLs. Walks with cane. Allergies: Tylenol, sulfa NOK/decision maker - sonAries [phone] Code status: Full Code Impression: 72 yo female w/ acute delirium secondary to acute medical condition; no other primary psychiatric diagnosis. -No psychiatric admission or medications indicated at this time Past Patient History - Infectious Disease Hx of Infectious Diseases: None - Tetanus Immunizations Tetanus Immunization: Unknown - Past Medical History & Family History Past Medical History?: Yes - Past Social History Smoking Status: Never Smoked - CARDIAC Hx Cardiac Disorders: Yes Hx Hypertension: Yes - PULMONARY Hx Respiratory Disorders: No - NEUROLOGICAL Hx Neurological Disorder: No - HEENT Hx HEENT Problems: No - RENAL Hx Chronic Kidney Disease: No - ENDOCRINE/METABOLIC Hx Endocrine Disorders: Yes Hx Diabetes Mellitus Type 2: Yes - HEMATOLOGICAL/ONCOLOGICAL Hx Blood Disorders: No Hx AIDS: No Hx Human Immunodeficiency Virus (HIV): No - INTEGUMENTARY Hx Dermatological Problems: No - MUSCULOSKELETAL/RHEUMATOLOGICAL Hx Musculoskeletal Disorders: Yes Hx Arthritis: Yes Hx Falls: No - GASTROINTESTINAL Hx Gastrointestinal Disorders: No - GENITOURINARY/GYNECOLOGICAL Hx Genitourinary Disorders: No - PSYCHIATRIC Hx Psychophysiologic Disorder: No Hx Substance Use: No - SURGICAL HISTORY Hx Surgeries: Yes Hx Cataract Extraction: Yes (bilateral) Hx Orthopedic Surgery: Yes (bilateral knee replacement) - ANESTHESIA Hx Anesthesia: Yes Hx Anesthesia Reactions: No Hx Malignant Hyperthermia: No Meds Allergies/Adverse Reactions: Allergies Allergy/AdvReac Type Severity Reaction Status Date / Time acetaminophen [From Tylenol] Allergy RASH Verified 10/22/18 15:36 chlorophyllin Allergy RASH Verified 10/22/18 15:36 Sulfa (Sulfonamide Allergy RASH Verified 10/22/18 15:36 Antibiotics) baking soda Allergy RASH Uncoded 10/22/18 15:36 - Medications Medications: Current Medications Amlodipine Besylate (Norvasc) 10 mg PO DAILY [facility] Last Admin: 10/25/18 09:55 Dose: 10 mg Carvedilol (Coreg) 25 mg PO Q12 [facility] Last Admin: 10/25/18 08:54 Dose: 25 mg Dextrose (Dextrose 50% Inj) 0 ml IV STAT PRN; Protocol PRN Reason: Hypoglycemia Protocol Dextrose (Dextrose 50% Inj) 50 ml IVP ONCE PRN PRN Reason: Hypoglycemia Dextrose (Glutose 15) 0 gm PO ONCE PRN; Protocol PRN Reason: Hypoglycemia Protocol Enoxaparin Sodium (Lovenox) 40 mg SC DAILY [facility]; Protocol Last Admin: 10/25/18 08:53 Dose: 40 mg Glucagon (Glucagen Diagnostic Kit) 0 mg IM STAT PRN; Protocol PRN Reason: Hypoglycemia Protocol Sodium Chloride (Sodium Chloride 0.9%) 1,000 mls @ 100 mls/hr IV .Q10H [facility] Stop: 10/25/18 14:09 Last Admin: 10/25/18 02:39 Dose: 100 mls/hr Insulin Human Regular (Humulin R) 0 units SC ACHS [facility]; Protocol Last Admin: 10/25/18 06:39 Dose: 3 units Losartan Potassium (Cozaar) 50 mg PO DAILY [facility] Last Admin: 10/25/18 08:54 Dose: 50 mg Metformin HCl (Glucophage) 850 mg PO BIDWM [facility] Multivitamins/Minerals (Therapeutic-M Tab) 1 tab PO DAILY [facility] Last Admin: 10/25/18 08:53 Dose: 1 tab Pravastatin Sodium (Pravachol) 40 mg PO HS [facility] Last Admin: 10/24/18 23:13 Dose: 40 mg Results - Vital Signs Recent Vital Signs: Last Vital Signs Temp 98.0 F 10/25/18 12:15 Pulse 86 10/25/18 12:15 Resp 20 10/25/18 12:15 BP 162/77 H 10/25/18 12:15 Pulse Ox 95 10/25/18 12:15 - Labs Result Diagrams: 10/26/18 04:30 10/26/18 04:30 Labs: Laboratory Results - last 24 hr 10/24/18 10/24/18 10/24/18 15:03 20:45 20:45 WBC RBC Hgb Hct MCV MCH MCHC RDW Plt Count MPV Neut % (Auto) Lymph % (Auto) [place] % (Auto) Eos % (Auto) Baso % (Auto) Neut # (Auto) Lymph # (Auto) [place] # (Auto) Eos # (Auto) Baso # (Auto) Sodium 128 L Potassium 3.8 Chloride 85 L Carbon Dioxide 29 Anion Gap 18 BUN 10 Creatinine 0.4 L Est GFR ( Amer) > 60 Est GFR (Non-Af Amer) > 60 POC Glucose (mg/dL) 194 H Random Glucose 249 H Serum Osmolality 269 L Calcium 9.5 Phosphorus Magnesium Iron TIBC % Saturation Ferritin Total Bilirubin AST ALT Alkaline Phosphatase Troponin I Total Protein Albumin Globulin Albumin/Globulin Ratio 10/24/18 10/25/18 10/25/18 22:39 04:10 04:10 WBC 9.9 RBC 4.85 Hgb 11.8 L Hct 36.1 MCV 74.4 L MCH 24.3 L MCHC 32.7 L RDW 15.1 H Plt Count 289 MPV 8.0 Neut % (Auto) 79.4 H Lymph % (Auto) 11.1 L [place] % (Auto) 6.8 Eos % (Auto) 2.1 Baso % (Auto) 0.6 Neut # (Auto) 7.8 H Lymph # (Auto) 1.1 [place] # (Auto) 0.7 Eos # (Auto) 0.2 Baso # (Auto) 0.1 Sodium 130 L Potassium 4.5 Chloride 85 L Carbon Dioxide 30 Anion Gap 20 BUN 8 Creatinine 0.5 L Est GFR ( Amer) > 60 Est GFR (Non-Af Amer) > 60 POC Glucose (mg/dL) 246 H Random Glucose 272 H Serum Osmolality Calcium 9.6 Phosphorus 3.1 Magnesium 1.1 L Iron TIBC % Saturation Ferritin Total Bilirubin 0.6 AST 28 ALT 24 Alkaline Phosphatase 122 Troponin I < 0.0120 Total Protein 8.3 H Albumin 4.4 Globulin 3.9 Albumin/Globulin Ratio 1.1 10/25/18 10/25/18 10/25/18 05:29 10:42 10:42 WBC RBC Hgb Hct MCV MCH MCHC RDW Plt Count MPV Neut % (Auto) Lymph % (Auto) [place] % (Auto) Eos % (Auto) Baso % (Auto) Neut # (Auto) Lymph # (Auto) [place] # (Auto) Eos # (Auto) Baso # (Auto) Sodium Potassium Chloride Carbon Dioxide Anion Gap BUN Creatinine Est GFR ( Amer) Est GFR (Non-Af Amer) POC Glucose (mg/dL) 249 H Random Glucose Serum Osmolality Calcium Phosphorus Magnesium Iron 44 TIBC 318 % Saturation 14 L Ferritin 102.0 Total Bilirubin AST ALT Alkaline Phosphatase Troponin I Total Protein Albumin Globulin Albumin/Globulin Ratio 10/25/18 10:47 WBC RBC Hgb Hct MCV MCH MCHC RDW Plt Count MPV Neut % (Auto) Lymph % (Auto) [place] % (Auto) Eos % (Auto) Baso % (Auto) Neut # (Auto) Lymph # (Auto) [place] # (Auto) Eos # (Auto) Baso # (Auto) Sodium Potassium Chloride Carbon Dioxide Anion Gap BUN Creatinine Est GFR ( Amer) Est GFR (Non-Af Amer) POC Glucose (mg/dL) 177 H Random Glucose Serum Osmolality Calcium Phosphorus Magnesium Iron TIBC % Saturation Ferritin Total Bilirubin AST ALT Alkaline Phosphatase Troponin I Total Protein Albumin Globulin Albumin/Globulin Ratio
--- NOTE | 2018-10-25 13:58 | CP.PCM.CON ---
History of Present Illness - History of Present Illness History of Present Illness: 72 yr old woman who is here for the second time in one month for confusion with hyponatremia. She was recently discharged and returns with increasing confusion. History from last visit: PMH hypertension, mild asthma, type 2 diabetes, hyperlipidemia, CAD who presented to the emergency department with multiple complaints including wheezing cough and abdominal discomfort sporadically for a week with several episodes of diarrhea. Family at bedside to assist with history taking. Patient visited urgent care last week for her abdominal pain and cough, was prescribed bromphenir and azithromycin Z-pack, and was recommended to get CT for her abdomen in an ED. However, pt states she took antibiotics and cough syrup and felt some relief at first. Then, 2 days ago she started feeling sick again, cough returned and she was short of breath. ROS: cannot obtain due to patients inability to sustain attention. PMD: Beronica Valdez PMH: hypertension, mild asthma, type 2 diabetes, hyperlipidemia, CAD Past Surg hx: bilateral knee replacement, bilateral cataract Social hx: denies tobacco, alcohol, drug use. Lives with , independent of ADLs. Walks with cane. Fam hx: [place] Allergies: tylenol? Medications: tradjenta 5 mg, valsartan-hctz 160-25 daily, metformin 750 mg BID, amlodipine 5 mg daily, glimepiride 4 mg BID, pravastatin 40 mg QHS, Proair inhaler PRN (uses less than 1x a week) ON exam: Past Patient History - Infectious Disease Hx of Infectious Diseases: None - Tetanus Immunizations Tetanus Immunization: Unknown - Past Medical History & Family History Past Medical History?: Yes - Past Social History Smoking Status: Never Smoked - CARDIAC Hx Cardiac Disorders: Yes Hx Hypertension: Yes - PULMONARY Hx Respiratory Disorders: No - NEUROLOGICAL Hx Neurological Disorder: No - HEENT Hx HEENT Problems: No - RENAL Hx Chronic Kidney Disease: No - ENDOCRINE/METABOLIC Hx Endocrine Disorders: Yes Hx Diabetes Mellitus Type 2: Yes - HEMATOLOGICAL/ONCOLOGICAL Hx Blood Disorders: No Hx AIDS: No Hx Human Immunodeficiency Virus (HIV): No - INTEGUMENTARY Hx Dermatological Problems: No - MUSCULOSKELETAL/RHEUMATOLOGICAL Hx Musculoskeletal Disorders: Yes Hx Arthritis: Yes Hx Falls: No - GASTROINTESTINAL Hx Gastrointestinal Disorders: No - GENITOURINARY/GYNECOLOGICAL Hx Genitourinary Disorders: No - PSYCHIATRIC Hx Psychophysiologic Disorder: No Hx Substance Use: No - SURGICAL HISTORY Hx Surgeries: Yes Hx Cataract Extraction: Yes (bilateral) Hx Orthopedic Surgery: Yes (bilateral knee replacement) - ANESTHESIA Hx Anesthesia: Yes Hx Anesthesia Reactions: No Hx Malignant Hyperthermia: No Meds Allergies/Adverse Reactions: Allergies Allergy/AdvReac Type Severity Reaction Status Date / Time acetaminophen [From Tylenol] Allergy RASH Verified 10/22/18 15:36 chlorophyllin Allergy RASH Verified 10/22/18 15:36 Sulfa (Sulfonamide Allergy RASH Verified 10/22/18 15:36 Antibiotics) baking soda Allergy RASH Uncoded 10/22/18 15:36 - Medications Medications: Current Medications Amlodipine Besylate (Norvasc) 10 mg PO DAILY [facility] Last Admin: 10/25/18 09:55 Dose: 10 mg Carvedilol (Coreg) 25 mg PO Q12 [facility] Last Admin: 10/25/18 08:54 Dose: 25 mg Dextrose (Dextrose 50% Inj) 0 ml IV STAT PRN; Protocol PRN Reason: Hypoglycemia Protocol Dextrose (Dextrose 50% Inj) 50 ml IVP ONCE PRN PRN Reason: Hypoglycemia Dextrose (Glutose 15) 0 gm PO ONCE PRN; Protocol PRN Reason: Hypoglycemia Protocol Enoxaparin Sodium (Lovenox) 40 mg SC DAILY [facility]; Protocol Last Admin: 10/25/18 08:53 Dose: 40 mg Glucagon (Glucagen Diagnostic Kit) 0 mg IM STAT PRN; Protocol PRN Reason: Hypoglycemia Protocol Sodium Chloride (Sodium Chloride 0.9%) 1,000 mls @ 100 mls/hr IV .Q10H [facility] Stop: 10/25/18 14:09 Last Admin: 10/25/18 02:39 Dose: 100 mls/hr Insulin Human Regular (Humulin R) 0 units SC ACHS [facility]; Protocol Last Admin: 10/25/18 06:39 Dose: 3 units Losartan Potassium (Cozaar) 50 mg PO DAILY [facility] Last Admin: 10/25/18 08:54 Dose: 50 mg Metformin HCl (Glucophage) 850 mg PO BIDWM [facility] Multivitamins/Minerals (Therapeutic-M Tab) 1 tab PO DAILY [facility] Last Admin: 10/25/18 08:53 Dose: 1 tab Pravastatin Sodium (Pravachol) 40 mg PO HS [facility] Last Admin: 10/24/18 23:13 Dose: 40 mg Results - Vital Signs Recent Vital Signs: Last Vital Signs Temp 98.0 F 02/06/19 12:15 Pulse 86 10/25/18 12:15 Resp 20 10/25/18 12:15 BP 162/77 H 10/25/18 12:15 Pulse Ox 95 10/25/18 12:15 - Labs Result Diagrams: 10/25/18 04:10 10/25/18 04:10 Labs: Laboratory Results - last 24 hr 10/24/18 10/24/18 10/24/18 15:03 20:45 20:45 WBC RBC Hgb Hct MCV MCH MCHC RDW Plt Count MPV Neut % (Auto) Lymph % (Auto) [place] % (Auto) Eos % (Auto) Baso % (Auto) Neut # (Auto) Lymph # (Auto) [place] # (Auto) Eos # (Auto) Baso # (Auto) Sodium 128 L Potassium 3.8 Chloride 85 L Carbon Dioxide 29 Anion Gap 18 BUN 10 Creatinine 0.4 L Est GFR ( Amer) > 60 Est GFR (Non-Af Amer) > 60 POC Glucose (mg/dL) 194 H Random Glucose 249 H Serum Osmolality 269 L Calcium 9.5 Phosphorus Magnesium Iron TIBC % Saturation Ferritin Total Bilirubin AST ALT Alkaline Phosphatase Troponin I Total Protein Albumin Globulin Albumin/Globulin Ratio 10/24/18 10/25/18 10/25/18 22:39 04:10 04:10 WBC 9.9 RBC 4.85 Hgb 11.8 L Hct 36.1 MCV 74.4 L MCH 24.3 L MCHC 32.7 L RDW 15.1 H Plt Count 289 MPV 8.0 Neut % (Auto) 79.4 H Lymph % (Auto) 11.1 L [place] % (Auto) 6.8 Eos % (Auto) 2.1 Baso % (Auto) 0.6 Neut # (Auto) 7.8 H Lymph # (Auto) 1.1 [place] # (Auto) 0.7 Eos # (Auto) 0.2 Baso # (Auto) 0.1 Sodium 130 L Potassium 4.5 Chloride 85 L Carbon Dioxide 30 Anion Gap 20 BUN 8 Creatinine 0.5 L Est GFR ( Amer) > 60 Est GFR (Non-Af Amer) > 60 POC Glucose (mg/dL) 246 H Random Glucose 272 H Serum Osmolality Calcium 9.6 Phosphorus 3.1 Magnesium 1.1 L Iron TIBC % Saturation Ferritin Total Bilirubin 0.6 AST 28 ALT 24 Alkaline Phosphatase 122 Troponin I < 0.0120 Total Protein 8.3 H Albumin 4.4 Globulin 3.9 Albumin/Globulin Ratio 1.1 10/25/18 10/25/18 10/25/18 05:29 10:42 10:42 WBC RBC Hgb Hct MCV MCH MCHC RDW Plt Count MPV Neut % (Auto) Lymph % (Auto) [place] % (Auto) Eos % (Auto) Baso % (Auto) Neut # (Auto) Lymph # (Auto) [place] # (Auto) Eos # (Auto) Baso # (Auto) Sodium Potassium Chloride Carbon Dioxide Anion Gap BUN Creatinine Est GFR ( Amer) Est GFR (Non-Af Amer) POC Glucose (mg/dL) 249 H Random Glucose Serum Osmolality Calcium Phosphorus Magnesium Iron 44 TIBC 318 % Saturation 14 L Ferritin 102.0 Total Bilirubin AST ALT Alkaline Phosphatase Troponin I Total Protein Albumin Globulin Albumin/Globulin Ratio 10/25/18 10:47 WBC RBC Hgb Hct MCV MCH MCHC RDW Plt Count MPV Neut % (Auto) Lymph % (Auto) [place] % (Auto) Eos % (Auto) Baso % (Auto) Neut # (Auto) Lymph # (Auto) [place] # (Auto) Eos # (Auto) Baso # (Auto) Sodium Potassium Chloride Carbon Dioxide Anion Gap BUN Creatinine Est GFR ( Amer) Est GFR (Non-Af Amer) POC Glucose (mg/dL) 177 H Random Glucose Serum Osmolality Calcium Phosphorus Magnesium Iron TIBC % Saturation Ferritin Total Bilirubin AST ALT Alkaline Phosphatase Troponin I Total Protein Albumin Globulin Albumin/Globulin Ratio Assessment & Plan - Assessment and Plan (Free Text) Assessment: 72 yr old woman with recurrent hyponatremia who is here for another spell accompanied again with confusion, with encephalopathy. MRI brain was just completed and appears to not have any acute strokes. PLan: 1. Ammonia level. 2. EEG Thank you Dr. kirkland
--- NOTE | 2018-10-25 16:19 | MRI ---
Date of service: 10/25/2018 PROCEDURE: MRI BRAIN WITHOUT CONTRAST HISTORY: 72 YO F w/ hyponetremia and altered mental status COMPARISON: None available. TECHNIQUE: Multiplanar, multisequence MR images of the brain were obtained without intravenous contrast enhancement. FINDINGS: HEMORRHAGE: None DWI: No evidence of an acute or early subacute infarction. BRAIN PARENCHYMA: Age related neuro degenerative findings are reiterated. No mass effect or interval cortical edema appreciable. Midline anatomy is unremarkable. VENTRICLES: Unremarkable. No hydrocephalus. CRANIUM: Unremarkable. ORBITS: Grossly unremarkable. PARANASAL SINUSES/MASTOIDS: Clear VASCULAR SYSTEM: Skull base flow voids intact. OTHER FINDINGS: None. IMPRESSION: Limited age-related neuro degenerative changes appear similar to that identified in prior head CT 10/24/2018. No definite acute brain infarction, mass effect or intracranial hemorrhage appreciated.
[2018-10-25] MEDS: Pravastatin Sodium 40 MG TAB PO SCH (21:13)
--- NOTE | 2018-10-25 21:15 | PQF ---
PROVIDER RESPONSE TEXT: Acute metabolic encephalopathy with delirium REVIEWER QUERY TEXT: Conflicting Documentation Clarification ER MD, and the Renal cardiology consultant have documented the diagnosis Acute Metabolic Encephalopathy. The Ne urologist has listed a dx.of: Encephalopathy Please also document if the condition is: -- Confirmed and current -- Confirmed, treated and resolved -- Ruled out -- Other, please specify H and P includes: 72 y/o female with PMH HTN , DM type II, dyslipidemia, CAD just discharged from [facility] for hyponatremia , hypochloremia and confusion brought back by family for delirium and confusio n Dx :Hyponatremia ,Confusion / AMS , Microcytic anemia- unclear etiology ,hypertension , DM type II dyslipidemia , CAD The patient's Clinical Indicators include: --- Query created by: Judith Barker on 10/25/2018 2:54 PM Electronically signed by: 10/25/2018 9:13 PM
[2018-10-25 22:06] LABS: URINE BILIRUBIN NEGATIVE (NEGATIVE); URINE BLOOD NEGATIVE (NEGATIVE); URINE CLARITY SLIGHTY-CLOUDY (Clear); URINE COLOR YELLOW (YELLOW); URINE GLUCOSE (UA) 150 mg/dL (NEGATIVE); URINE LEUKOCYTE ESTERASE NEG Leu/uL (Negative); URINE PROTEIN 100 mg/dL (NEGATIVE); URINE UROBILINOGEN 0.2-1.0 mg/dL (0.2-1.0)
[2018-10-26 05:36] LABS: MEAN CORPUSCULAR HEMOGLOBIN 24.3 pg (27.0-31.0); MEAN CORPUSCULAR HGB CONC 32.8 g/dL (33.0-37.0); RBC 4.13 Mil/uL (3.80-5.20); RED CELL DISTRIBUTION WIDTH 15.2 % (11.5-14.5); WHITE BLOOD COUNT 6.7 K/uL (4.8-10.8)
[2018-10-26 05:56] LABS: ALBUMIN 3.3 g/dL (3.5-5.0); ALT/SGPT 22 U/L (9-52); AST/SGOT 21 U/L (14-36); BLOOD UREA NITROGEN 10 mg/dl (7-17); CALCIUM 8.5 mg/dL (8.4-10.2); GFR NON-AFRICAN AMERICAN > 60
[2018-10-26] MEDS ORDERED: Potassium Chloride 10 mEq ER Tab PO ONE (06:35)
[2018-10-26] MEDS ORDERED: Magnesium Sulfate 2 gm/50 ml 2 GM/50 ML BAG IVPB ONE (06:36)
[2018-10-26] MEDS: Insulin Regular 100 units/ml SC SCH ×4 (06:50→22:01)
[2018-10-26] MEDS ORDERED: Sodium Chloride 0.9% 1,000 ML IV SCH (07:15)
[2018-10-26] MEDS: Enoxaparin 40 mg Syringe SC SCH (09:26)
[2018-10-26] MEDS: Multivitamin With Minerals Tab PO SCH (09:26)
--- NOTE | 2018-10-26 10:03 | CP.PCM.PN ---
<Sultan Rocky - Last Filed: 10/26/18 10:05> Subjective - Date & Time of Evaluation Date of Evaluation: 10/26/18 Time of Evaluation: 09:45 - Subjective Subjective: Patient seen and examined this morning with son present in the room. Patient is sleeping comfortably, does not look in acute distress. Patient received 10 mg hydralazine for elevated BP. Son reports patient was up last night and was confused as well. Received 1 mg Ativan for acute agitation last night. Elevated BP, otherwise stable vitals. Serum sodium is 127 this morning. Objective - Vital Signs/Intake and Output Vital Signs (last 24 hours): Temp Pulse Resp BP Pulse Ox 98.3 F 82 18 153/74 H 96 10/26/18 05:35 10/26/18 06:53 10/26/18 06:53 10/26/18 06:53 10/26/18 06:53 - Medications Medications: Current Medications Amlodipine Besylate (Norvasc) 10 mg PO DAILY [facility] Last Admin: 10/26/18 09:26 Dose: 10 mg Carvedilol (Coreg) 25 mg PO Q12 [facility] Last Admin: 10/26/18 09:26 Dose: 25 mg Dextrose (Dextrose 50% Inj) 0 ml IV STAT PRN; Protocol PRN Reason: Hypoglycemia Protocol Dextrose (Dextrose 50% Inj) 50 ml IVP ONCE PRN PRN Reason: Hypoglycemia Dextrose (Glutose 15) 0 gm PO ONCE PRN; Protocol PRN Reason: Hypoglycemia Protocol Enoxaparin Sodium (Lovenox) 40 mg SC DAILY [facility]; Protocol Last Admin: 10/26/18 09:26 Dose: 40 mg Glucagon (Glucagen Diagnostic Kit) 0 mg IM STAT PRN; Protocol PRN Reason: Hypoglycemia Protocol Sodium Chloride (Sodium Chloride 0.9%) 1,000 mls @ 100 mls/hr IV .Q10H [facility] Stop: 10/27/18 07:08 Insulin Human Regular (Humulin R) 0 units SC ACHS [facility]; Protocol Last Admin: 10/26/18 06:50 Dose: 2 units Losartan Potassium (Cozaar) 100 mg PO DAILY [facility] Last Admin: 10/26/18 09:27 Dose: 100 mg Metformin HCl (Glucophage) 850 mg PO BIDWM [facility] Last Admin: 10/26/18 09:26 Dose: 850 mg Multivitamins/Minerals (Therapeutic-M Tab) 1 tab PO DAILY [facility] Last Admin: 10/26/18 09:26 Dose: 1 tab Pravastatin Sodium (Pravachol) 40 mg PO HS [facility] Last Admin: 10/25/18 21:13 Dose: 40 mg - Labs Labs: 10/26/18 04:30 10/26/18 04:30 - Constitutional Appears: Non-toxic, No Acute Distress - Head Exam Head Exam: NORMAL INSPECTION - Neck Exam Neck Exam: Normal Inspection - Respiratory Exam Respiratory Exam: Clear to Ausculation Bilateral, NORMAL BREATHING PATTERN. absent: Rhonchi, Wheezes - Cardiovascular Exam Cardiovascular Exam: REGULAR RHYTHM, +S1, +S2 - GI/Abdominal Exam GI & Abdominal Exam: Soft, Normal Bowel Sounds. absent: Tenderness - Extremities Exam Extremities Exam: Normal Capillary Refill, Normal Inspection. absent: Calf Tenderness - Neurological Exam Neurological Exam: Altered - Skin Skin Exam: Normal Color Additional comments: scaly rash on B/L foot Assessment and Plan - Assessment and Plan (Free Text) Assessment: Assessment: 72 year old female accompanied by her son and daughter with PMHx of h ypertension, mild asthma, type 2 diabetes, hyperlipidemia, CAD who presented to the emergency department via EMS for evaluation of confusion since last night. In the ER, patient's sodium is 123 and admitted for hyponatremia and altered mental status/acute delirium. Plan: Hyponatremia likely secondary to medication side effect -Na 123 on admission -Na 127 this morning, trended down from yesterday (patient did not receive IV fluids for few hours yesterday) -c/w 0.9% NS at 100 cc/hr -Head CT: no acute intracranial pathology -Consult production laborer, Dr. Mcgee, rec appreciated. -Consult neurology, Dr. Valadez, rec appreciated -Patient's family declined EEG yesterday -discontinue HCTZ and amaryl -ammonia level: 28 -f/u VBG and BMP Acute Delirium likely secondary to hyponatremia -Head CT: no acute intracranial pathology -Brain MRI: IMPRESSION:Limited age-related neuro degenerative changes appear similar to that identified in prior head CT 10/24/2018. No definite acute brain infarction, mass effect or intracranial hemorrhage appreciated. -Neurology consult: Dr. Valadez, recommendation appreciated -Psychiatry consult: Dr. Bonilla, f/u recs -Monitor symptoms Hypokalemia -K 3.5 -ordered 20 kcl po -f/u BMP Hypomagnesemia: -Mag 1.4 this morning -ordered 2 gm mag -f/u BMP Hypertension, chronic -Not controlled -hold diuretic -Increase losartan to 100 mg po daily -c/w amlodine to 10 mg po daily and coreg -Continue with rest of the home medication -Monitor BP Microcytic anemia, unclear etiology -stable -Iron studies within normal limit Diarrhea (resolved) -Last diarrhea 3 days ago -Afebrile with stable vitals -CT on A/P on 10/22/18 was unremarkable -f/u symptoms Diabetes Mellitus, type 2 -Uncontrolled -HbA1c is 8.1 -Hold Linagliptin glipizide for now -c/w Metformin 850 mg po bid -Accuchecks ACTID, insulin coverage scale and hypoglycemia protocol Hyperlipidemia and CAD - c/w simvastatin Asthma, mild intermittent -Stable -Duoneb PRN Q4 hrs Diet - Heart healthy diet Prophylaxis - SCd amd lovenox Plan discussed w/ Dr. Barroso <Bjorn Newell D - Last Filed: 10/26/18 14:40> Objective - Vital Signs/Intake and Output Vital Signs (last 24 hours): Temp Pulse Resp BP Pulse Ox 98.0 F 79 20 154/79 H 95 10/26/18 12:23 10/26/18 12:23 10/26/18 12:23 10/26/18 12:23 10/26/18 12:23 - Medications Medications: Current Medications Amlodipine Besylate (Norvasc) 10 mg PO DAILY [facility] Last Admin: 10/26/18 09:26 Dose: 10 mg Carvedilol (Coreg) 25 mg PO Q12 [facility] Last Admin: 10/26/18 09:26 Dose: 25 mg Dextrose (Dextrose 50% Inj) 0 ml IV STAT PRN; Protocol PRN Reason: Hypoglycemia Protocol Dextrose (Dextrose 50% Inj) 50 ml IVP ONCE PRN PRN Reason: Hypoglycemia Dextrose (Glutose 15) 0 gm PO ONCE PRN; Protocol PRN Reason: Hypoglycemia Protocol Enoxaparin Sodium (Lovenox) 40 mg SC DAILY [facility]; Protocol Last Admin: 10/26/18 09:26 Dose: 40 mg Glucagon (Glucagen Diagnostic Kit) 0 mg IM STAT PRN; Protocol PRN Reason: Hypoglycemia Protocol Insulin Human Regular (Humulin R) 0 units SC [facility]; Protocol Last Admin: 10/26/18 11:22 Dose: Not Given Lactic Acid (Lac-Hydrin 12% Lotion (225 G)) 1 applic TOP BID [facility] Losartan Potassium (Cozaar) 100 mg PO DAILY [facility] Last Admin: 10/26/18 09:27 Dose: 100 mg Metformin HCl (Glucophage) 850 mg PO BIDWM [facility] Last Admin: 10/26/18 09:26 Dose: 850 mg Multivitamins/Minerals (Therapeutic-M Tab) 1 tab PO DAILY [facility] Last Admin: 10/26/18 09:26 Dose: 1 tab Pravastatin Sodium (Pravachol) 40 mg PO HS [facility] Last Admin: 10/25/18 21:13 Dose: 40 mg - Labs Labs: 10/26/18 04:30 10/26/18 04:30 Attending/Attestation - Attestation I have personally seen and examined this patient.: Yes I have fully participated in the care of the patient.: Yes I have reviewed all pertinent clinical information, including history, physical exam and plan: Yes Notes (Text): 10/26/18 14:17 Patient seen and examined with resident. Case discussed and agreed with assessment and plan. Serum sodium keeps on going down after it got corrected. Yesterday serum Na was up to 130, with corrected reading of 132.03. Today it dipped down again to 127. ECHO to rule out CHF as possbile cause Samsca, a vasopressin antagonist, 15mg PO, then BMP after 8 hrs
[2018-10-26] MEDS ORDERED: Tolvaptan 15 MG TAB PO ONE (10:39)
--- NOTE | 2018-10-26 10:45 | CP.PCM.PN ---
Subjective - Date & Time of Evaluation Date of Evaluation: 10/26/18 Time of Evaluation: 10:45 - Subjective Subjective: Patient sitting up in bed taken some oral food and the son at the bedside Son stated that the patient remain confused but less agitated because she was given Ativan Vital signs noted to be stable And serum sodium coming down despite of normal saline was given last night Objective - Vital Signs/Intake and Output Vital Signs (last 24 hours): Temp Pulse Resp BP Pulse Ox 98.3 F 82 18 153/74 H 96 10/26/18 05:35 10/26/18 06:53 10/26/18 06:53 10/26/18 06:53 10/26/18 06:53 - Medications Medications: Current Medications Amlodipine Besylate (Norvasc) 10 mg PO DAILY [facility] Last Admin: 10/26/18 09:26 Dose: 10 mg Carvedilol (Coreg) 25 mg PO Q12 [facility] Last Admin: 10/26/18 09:26 Dose: 25 mg Dextrose (Dextrose 50% Inj) 0 ml IV STAT PRN; Protocol PRN Reason: Hypoglycemia Protocol Dextrose (Dextrose 50% Inj) 50 ml IVP ONCE PRN PRN Reason: Hypoglycemia Dextrose (Glutose 15) 0 gm PO ONCE PRN; Protocol PRN Reason: Hypoglycemia Protocol Enoxaparin Sodium (Lovenox) 40 mg SC DAILY [facility]; Protocol Last Admin: 10/26/18 09:26 Dose: 40 mg Glucagon (Glucagen Diagnostic Kit) 0 mg IM STAT PRN; Protocol PRN Reason: Hypoglycemia Protocol Sodium Chloride (Sodium Chloride 0.9%) 1,000 mls @ 100 mls/hr IV .Q10H [facility] Stop: 10/27/18 07:08 Insulin Human Regular (Humulin R) 0 units SC ACHS [facility]; Protocol Last Admin: 10/26/18 06:50 Dose: 2 units Lactic Acid (Lac-Hydrin 12% Lotion (225 G)) 1 applic TOP BID [facility] Losartan Potassium (Cozaar) 100 mg PO DAILY [facility] Last Admin: 10/26/18 09:27 Dose: 100 mg Metformin HCl (Glucophage) 850 mg PO BIDWM [facility] Last Admin: 10/26/18 09:26 Dose: 850 mg Multivitamins/Minerals (Therapeutic-M Tab) 1 tab PO DAILY [facility] Last Admin: 10/26/18 09:26 Dose: 1 tab Pravastatin Sodium (Pravachol) 40 mg PO HS [facility] Last Admin: 10/25/18 21:13 Dose: 40 mg - Labs Labs: 10/26/18 04:30 10/26/18 04:30 - Constitutional Appears: No Acute Distress - Eye Exam Eye Exam: Conjunctival injection - ENT Exam ENT Exam: Mucous Membranes Moist - Neck Exam Neck Exam: absent: Lymphadenopathy - Respiratory Exam Respiratory Exam: NORMAL BREATHING PATTERN - GI/Abdominal Exam GI & Abdominal Exam: Soft, Normal Bowel Sounds - Extremities Exam Extremities Exam: absent: Calf Tenderness - Back Exam Back Exam: absent: CVA tenderness (L), CVA tenderness (R) - Neurological Exam Neurological Exam: Altered, Awake - Psychiatric Exam Psychiatric exam: Anxious Assessment and Plan (1) Acute metabolic encephalopathy Status: Acute (2) Hyponatremia Assessment & Plan: Patient admitted with hyponatremia serum sodium 123 which has gone up to 130 yesterday and back down to 127 this morning Hypochloremia Above hyponatremia and hypochloremia probably from hydrochlorothiazide and has been taking 25 mg daily Patient restless confused agitated Rule out intracranial pathology Urine osmolarity disproportion high to the serum osmolarity consistent with SIADH? Recommendation Discontinue hydrochlorothiazide and all diuretics Spoke to the son not to give her hydrochlorothiazide To give Samsca 15 mg stat dose And monitor serum sodium in the next 24 hours not to rise more than 8-10 mEq in 24 hours therefore repeat BMP later on in about 6 to 8 hours Also DC normal saline because of the Samsca is being given Status: Acute
[2018-10-26] MEDS ORDERED: Albuterol-Ipratrop 3 mg / 0.5 (3 ml) UD INH STA (11:43)
--- NOTE | 2018-10-26 12:48 | CP.PCM.PN ---
Subjective - Date & Time of Evaluation Date of Evaluation: 10/26/18 Time of Evaluation: 12:45 - Subjective Subjective: Neuro Follow-Up Note: Mrs. Coleman was evaluated this afternoon at bedside. Son present. Pt is somnolent during exam but arousable and able to follow some commands. Per son she was given medication to calm her down. Per son the pt has been less confused since yesterday. ROS unobtainable from the pt 2/2 her current mental state. Objective - Vital Signs/Intake and Output Vital Signs (last 24 hours): Temp Pulse Resp BP Pulse Ox 98.0 F 79 20 154/79 H 95 10/26/18 12:23 10/26/18 12:23 10/26/18 12:23 10/26/18 12:23 10/26/18 12:23 - Medications Medications: Current Medications Amlodipine Besylate (Norvasc) 10 mg PO DAILY [facility] Last Admin: 10/26/18 09:26 Dose: 10 mg Carvedilol (Coreg) 25 mg PO Q12 [facility] Last Admin: 10/26/18 09:26 Dose: 25 mg Dextrose (Dextrose 50% Inj) 0 ml IV STAT PRN; Protocol PRN Reason: Hypoglycemia Protocol Dextrose (Dextrose 50% Inj) 50 ml IVP ONCE PRN PRN Reason: Hypoglycemia Dextrose (Glutose 15) 0 gm PO ONCE PRN; Protocol PRN Reason: Hypoglycemia Protocol Enoxaparin Sodium (Lovenox) 40 mg SC DAILY [facility]; Protocol Last Admin: 10/26/18 09:26 Dose: 40 mg Glucagon (Glucagen Diagnostic Kit) 0 mg IM STAT PRN; Protocol PRN Reason: Hypoglycemia Protocol Insulin Human Regular (Humulin R) 0 units SC [facility]; Protocol Last Admin: 10/26/18 11:22 Dose: Not Given Lactic Acid (Lac-Hydrin 12% Lotion (225 G)) 1 applic TOP BID [facility] Losartan Potassium (Cozaar) 100 mg PO DAILY [facility] Last Admin: 10/26/18 09:27 Dose: 100 mg Metformin HCl (Glucophage) 850 mg PO BIDWM [facility] Last Admin: 10/26/18 09:26 Dose: 850 mg Multivitamins/Minerals (Therapeutic-M Tab) 1 tab PO DAILY [facility] Last Admin: 10/26/18 09:26 Dose: 1 tab Pravastatin Sodium (Pravachol) 40 mg PO HS [facility] Last Admin: 10/25/18 21:13 Dose: 40 mg - Labs Labs: 10/26/18 04:30 10/26/18 04:30 - Constitutional Appears: Non-toxic, No Acute Distress, Confused - Head Exam Head Exam: ATRAUMATIC, NORMAL INSPECTION, NORMOCEPHALIC - Eye Exam Eye Exam: EOMI, Normal appearance, PERRL. absent: Nystagmus Pupil Exam: NORMAL ACCOMODATION, PERRL - ENT Exam ENT Exam: Mucous Membranes Moist - Neck Exam Neck Exam: Full ROM, Normal Inspection - Respiratory Exam Respiratory Exam: NORMAL BREATHING PATTERN - Extremities Exam Extremities Exam: absent: Calf Tenderness, Pedal Edema Additional comments: Able to move all extremities independently with some generalized weakness, more to BLE - Neurological Exam Neurological Exam: Altered, Reflexes Normal Neuro motor strength exam: Left Upper Extremity: 4 (car sealer 3/5), Right Upper Extremity: 4 (car sealer 3/5), Left Lower Extremity: 3 (plantar flexion 3/5), Right Lower Extremity: 3 (plantar flexion 3/5) Additional comments: Somnolent but arousable to voice and light touch. Confused but cooperative and follows most commands during exam. Able to move all extremities independently with some generalized weakness noted, more to BLE No tremors Unable to assess for ataxia and dysmetrai as pt is too drowsy to follow commands Gait not assessed as pt is too drowsy at this time. - Psychiatric Exam Additional comments: somnolent but arousable - Skin Skin Exam: Dry, Normal Color, Warm Assessment and Plan (1) Acute metabolic encephalopathy Assessment & Plan: Imaging reviewed: -MRI Brain (10/25/18): Limited age-related neuro degenerative changes appear similar to that identified in prior head CT 10/24/2018. No definite acute brain infarction, mass effect or intracranial hemorrhage appreciated. -CT Head non-contrast (10/24/18): No acute intracranial abnormality. No significant interval change. -Likely 2/2 to hyponatremia. Pt has recurrent episodes of AMS and hyponatremia. -Continue recs per nephro. -Continue to monitor electrolytes and replace prn. -EEG reordered today (was not done yesterday as pt was agitated)---will follow up with results. -Notify neuro team of any acute changes to pt's condition. Case discussed with Dr. Valadez Status: Acute
--- NOTE | 2018-10-26 19:08 | CARD ---
APPROVED REPORT Date of service: 10/26/2018 EXAM: Two-dimensional and M-mode echocardiogram with Doppler and color Doppler. Other Information Quality : GoodRhythm : NSR INDICATION LV Function:SystolicDiastolic 2D DIMENSIONS IVSd0.73 (0.7-1.1cm)LVDd4.37 (3.9-5.9cm) LVOT Diameter1.86 (1.8-2.4cm)PWd1.02 (0.7-1.1cm) IVSs1.24 (0.8-1.2cm)LVDs2.58 (2.5-4.0cm) FS (%) 40.9 %PWs1.32 (0.8-1.2cm) M-Mode DIMENSIONS Left Atrium (MM)4.09 (2.5-4.0cm)IVSd1.09 (0.7-1.1cm) Aortic Root2.56 (2.2-3.7cm)LVDd4.24 (4.0-5.6cm) Aortic Cusp Exc.1.50 (1.5-2.0cm)PWd1.18 (0.7-1.1cm) IVSs1.47 cmFS (%) 42 % LVDs2.47 (2.0-3.8cm)PWs1.41 cm Aortic Valve AoV Peak Msvfvyev554.6cm/sAoV VTI30.4cmAO Peak GR.9mmHg LVOT Peak Csevxrrq62.3cm/sLVOT VTI19.63cmAO Mean GR.5mmHg QUAN (VMAX)0.67gx3TCG (VTI)1.03cm2 Mitral Valve MV E Hmgaipdu24.6cm/sMV DECEL [id number] A Vqirepww92.8cm/s MV DXA16wtT/A ratio0.8MVA (PHT)3.24cm2 TDI Lateral E' Peak V6.11cm/sMedial E' Peak V5.79cm/sE/Lateral E'11.9 E/Medial E'12.5 LEFT VENTRICLE The left ventricle is normal size. There is normal left ventricular wall thickness. The left ventricular systolic function is normal. The estimated ejection fraction is 60-65% No regional wall motion abnormalities noted.. Transmitral Doppler flow pattern is Grade I-abnormal relaxation pattern. No left ventricle thrombus noted on this study. There is no ventricular septal defect visualized. There is no left ventricular aneurysm. There is no mass noted in the left ventricle. RIGHT VENTRICLE The right ventricle is normal size. There is normal right ventricular wall thickness. The right ventricular systolic function is normal. ATRIA The left atrium is borderline dilated. The right atrium size is normal. The interatrial septum is intact with no evidence for an atrial septal defect. AORTIC VALVE The aortic valve is normal in structure. No aortic regurgitation is present. There is no aortic valvular stenosis. There is no aortic valvular vegetation. MITRAL VALVE The mitral valve is normal in structure. There is no evidence of mitral valve prolapse. There is no mitral valve stenosis. There is no mitral valve regurgitation noted. TRICUSPID VALVE The tricuspid valve is normal in structure. There is trace tricuspid valve regurgitation noted. There is no tricuspid valve prolapse or vegetation. There is no tricuspid valve stenosis. PULMONIC VALVE The pulmonary valve is normal in structure. There is no pulmonic valvular regurgitation. There is no pulmonic valvular stenosis. GREAT VESSELS The aortic root is normal in size. The ascending aorta is normal in size. The pulmonary artery is normal. The IVC is normal in size and collapses >50% with inspiration. PERICARDIAL EFFUSION There is no pericardial effusion. There is no pleural effusion. <Conclusion> The estimated ejection fraction is 60-65% Transmitral Doppler flow pattern is Grade I-abnormal relaxation pattern. The left atrium is borderline dilated. There is trace tricuspid valve regurgitation noted. The IVC is normal in size and collapses >50% with inspiration.
--- NOTE | 2018-10-26 20:39 | CP.PCM.PCO ---
<Jyotsna Menjivar - Last Filed: 10/26/18 20:26> Addendum Addendum: 10/26/18 20:27 Received page from RN at 2004, called back at 2005, notified that patient sustained a fall while in the bathroom. Came to eval patient at 2008, patient sitting in bed, family at bedside (son and sister); state that pt got up to go to bathroom, and once in bathroom mistook shower curtain for wall and fell backwards into shower. Landed on her buttocks, denies hitting he head on anything, did not hit arms on anything. Patient sitting in bed, denies pain at this time, states she feels ok. PE: Spontaneously moving all extremities, no deformities noted in extremities, 4/5 strength in all 4 ext Answering questions appropriately, alert and oriented NO spinal point tenderness No bruise/abrasion on back/buttocks Will order Hip/Pelvis xrays to r/o acute fracture. Advised family to call for floor RN/MEDICAL BILLING AND CODING INSTRUCTOR to assist with getting out of bed. Discussed with floor RN; bed alarm on. Incident and case discussed w/ Dr. Newell. <Bjorn Newell - Last Filed: 10/27/18 09:53> Attending/Attestation - Attestation I have personally seen and examined this patient.: Yes I have fully participated in the care of the patient.: Yes I have reviewed all pertinent clinical information: Yes Notes (Text): 10/27/18 09:52 Patient seen and examined with resident. Case discussed and agreed with assessment and plan of management.
[2018-10-26] MEDS: Pravastatin Sodium 40 MG TAB PO SCH (22:00)
[2018-10-26 22:54] LABS: BLOOD UREA NITROGEN 12 mg/dl (7-17); CALCIUM 9.7 mg/dL (8.4-10.2); GFR NON-AFRICAN AMERICAN > 60; HDL CHOLESTEROL 50 MG/DL (30-70)
[2018-10-26 23:07] LABS: LDL CHOLESTEROL 46 mg/dL (0-129)
[2018-10-27 05:17] LABS: HEMOGLOBIN 10.1 g/dL (12.0-16.0); MEAN CELL VOLUME 74.9 fl (81.0-99.0); MEAN CORPUSCULAR HEMOGLOBIN 24.4 pg (27.0-31.0); MEAN CORPUSCULAR HGB CONC 32.6 g/dL (33.0-37.0); RBC 4.12 Mil/uL (3.80-5.20); RED CELL DISTRIBUTION WIDTH 15.6 % (11.5-14.5); WHITE BLOOD COUNT 6.9 K/uL (4.8-10.8)
[2018-10-27 05:32] LABS: BLOOD UREA NITROGEN 14 mg/dl (7-17); CALCIUM 9.1 mg/dL (8.4-10.2); GFR NON-AFRICAN AMERICAN > 60
[2018-10-27] MEDS: Insulin Regular 100 units/ml SC SCH ×3 (06:49→16:56)
[2018-10-27] MEDS ORDERED: Magnesium Sulfate 2 gm/50 ml 2 GM/50 ML BAG IVPB ONE (07:10)
[2018-10-27] MEDS: Multivitamin With Minerals Tab PO SCH (08:56)
[2018-10-27] MEDS: Enoxaparin 40 mg Syringe SC SCH (08:57)
[2018-10-27] MEDS ORDERED: Albuterol-Ipratrop 3 mg / 0.5 (3 ml) UD INH STA (09:17)
--- NOTE | 2018-10-27 09:19 | RAD ---
PROCEDURE: Radiographs of the pelvis and bilateral hips HISTORY: s/p fall COMPARISON: None. FINDINGS: Frontal views of the pelvis been submitted as well as the bilateral hip joints. Frog-leg lateral views of the bilateral hip joints of also been submitted. BONES: No acute fracture or destructive bony lesions identified bilaterally throughout the hip joints as well as the pelvic ring. Diffuse osteopenia suggests osteoporosis. JOINTS: Right hip: Limited degenerative cortical sclerosis appreciate the weight-bearing portion of the hip joints indicative of mild to moderate degenerative joint disease, less than expected for the patient's age. Joint space narrowing is limited but bilateral as well. Cortical sclerosis at the bilateral sacroiliac joints is appreciated indicative of additional degenerative joint disease but more advanced in that at the hips. Pubic symphysis is intact appears unremarkable. SOFT TISSUES: Local soft tissues reflect injection granulomata at the right buttocks. OTHER FINDINGS: None. IMPRESSION: Diffuse osteopenia suggests osteoporosis throughout the bilateral hips include and the pelvic ring. No acute fracture or dislocation bilateral hip joints. No fracture of the pelvic ring. Degenerative changes as discussed above bilaterally.
--- NOTE | 2018-10-27 09:25 | CP.PCM.PN ---
Objective - Vital Signs/Intake and Output Vital Signs (last 24 hours): Temp Pulse Resp BP Pulse Ox 97.7 F 73 18 137/71 100 10/27/18 08:25 10/27/18 08:25 10/27/18 08:25 10/27/18 08:25 10/27/18 08:25 - Medications Medications: Current Medications Amlodipine Besylate (Norvasc) 10 mg PO DAILY [facility] Last Admin: 10/27/18 08:56 Dose: 10 mg Carvedilol (Coreg) 25 mg PO Q12 [facility] Last Admin: 10/27/18 08:56 Dose: 25 mg Dextrose (Dextrose 50% Inj) 0 ml IV STAT PRN; Protocol PRN Reason: Hypoglycemia Protocol Dextrose (Dextrose 50% Inj) 50 ml IVP ONCE PRN PRN Reason: Hypoglycemia Dextrose (Glutose 15) 0 gm PO ONCE PRN; Protocol PRN Reason: Hypoglycemia Protocol Enoxaparin Sodium (Lovenox) 40 mg SC DAILY [facility]; Protocol Last Admin: 10/27/18 08:57 Dose: 40 mg Glucagon (Glucagen Diagnostic Kit) 0 mg IM STAT [facility]; Protocol PRN Reason: Hypoglycemia Protocol Insulin Human Regular (Humulin R) 0 units SC [facility]; Protocol Last Admin: 10/27/18 06:49 Dose: 2 units Lactic Acid (Lac-Hydrin 12% Lotion (225 G)) 1 applic TOP BID [facility] Last Admin: 10/27/18 08:55 Dose: 1 applic Losartan Potassium (Cozaar) 100 mg PO DAILY [facility] Last Admin: 10/27/18 08:56 Dose: 100 mg Metformin HCl (Glucophage) 850 mg PO BIDWM [facility] Last Admin: 10/27/18 08:56 Dose: 850 mg Multivitamins/Minerals (Therapeutic-M Tab) 1 tab PO DAILY [facility] Last Admin: 10/27/18 08:56 Dose: 1 tab Pravastatin Sodium (Pravachol) 40 mg PO HS [facility] Last Admin: 10/26/18 22:00 Dose: 40 mg - Labs Labs: 10/27/18 04:20 10/27/18 04:20
[2018-10-27] MEDS ORDERED: Albuterol-Ipratrop 3 mg / 0.5 (3 ml) UD INH PRN (09:26)
[2018-10-27] MEDS ORDERED: Sodium Chloride 0.9% 1,000 ML IV SCH ×2 (10:00→10:18)
--- NOTE | 2018-10-27 10:23 | CP.PCM.PN ---
Subjective - Date & Time of Evaluation Date of Evaluation: 10/27/18 Time of Evaluation: 10:23 - Subjective Subjective: Neuro Follow-Up Note: Mrs. Coleman was evaluated this morning at bedside. Daughter present at bedside. Pt appears to be somnolent but is easily arousable (compared to yesterday) to voice and able to follow commands. She complains of feeling tired and fatigued; also complains of an unproductive cough. she denies h/a, dizziness, visual changes, cp, sob, n/v/d. Objective - Vital Signs/Intake and Output Vital Signs (last 24 hours): Temp Pulse Resp BP Pulse Ox 97.7 F 73 18 137/71 100 10/27/18 08:25 10/27/18 08:25 10/27/18 08:25 10/27/18 08:25 10/27/18 08:25 - Medications Medications: Current Medications Albuterol/Ipratropium (Duoneb 3 Mg/0.5 Mg (3 Ml) Ud) 3 ml INH RQ6 PRN PRN Reason: Shortness of Breath Amlodipine Besylate (Norvasc) 10 mg PO DAILY [facility] Last Admin: 10/27/18 08:56 Dose: 10 mg Carvedilol (Coreg) 25 mg PO Q12 [facility] Last Admin: 10/27/18 08:56 Dose: 25 mg Dextrose (Dextrose 50% Inj) 0 ml IV STAT PRN; Protocol PRN Reason: Hypoglycemia Protocol Dextrose (Dextrose 50% Inj) 50 ml IVP ONCE PRN PRN Reason: Hypoglycemia Dextrose (Glutose 15) 0 gm PO ONCE PRN; Protocol PRN Reason: Hypoglycemia Protocol Enoxaparin Sodium (Lovenox) 40 mg SC DAILY [facility]; Protocol Last Admin: 10/27/18 08:57 Dose: 40 mg Glucagon (Glucagen Diagnostic Kit) 0 mg IM STAT PRN; Protocol PRN Reason: Hypoglycemia Protocol Sodium Chloride (Sodium Chloride 0.9%) 1,000 mls @ 30 mls/hr IV .Q24H [facility] Stop: 10/28/18 09:59 Insulin Human Regular (Humulin R) 0 units SC ACHS [facility]; Protocol Last Admin: 10/27/18 06:49 Dose: 2 units Lactic Acid (Lac-Hydrin 12% Lotion (225 G)) 1 applic TOP BID [facility] Last Admin: 10/27/18 08:55 Dose: 1 applic Losartan Potassium (Cozaar) 100 mg PO DAILY [facility] Last Admin: 10/27/18 08:56 Dose: 100 mg Metformin HCl (Glucophage) 850 mg PO BIDWM [facility] Last Admin: 10/27/18 08:56 Dose: 850 mg Multivitamins/Minerals (Therapeutic-M Tab) 1 tab PO DAILY [facility] Last Admin: 10/27/18 08:56 Dose: 1 tab Pravastatin Sodium (Pravachol) 40 mg PO HS [facility] Last Admin: 10/26/18 22:00 Dose: 40 mg - Labs Labs: 10/27/18 04:20 10/27/18 04:20 - Constitutional Appears: Non-toxic, No Acute Distress (appears somnolent but is easily arousable to voice) - Head Exam Head Exam: ATRAUMATIC, NORMAL INSPECTION, NORMOCEPHALIC - Eye Exam Eye Exam: EOMI, Normal appearance. absent: Nystagmus Pupil Exam: NORMAL ACCOMODATION, PERRL - ENT Exam ENT Exam: Mucous Membranes Moist - Neck Exam Neck Exam: Full ROM, Normal Inspection - Respiratory Exam Respiratory Exam: NORMAL BREATHING PATTERN (unprod cough noted during exam) - Extremities Exam Extremities Exam: absent: Calf Tenderness, Pedal Edema Additional comments: Able to move all extremities independently with some generalized weakness, more to BLE. - Neurological Exam Neurological Exam: Altered, CN II-XII Intact, Reflexes Normal Additional comments: Appears somnolent but is easily arousable to voice. Still slightly confused but cooperative and follows most commands during exam. Able to move all extremities independently with some generalized weakness noted, more to BLE No tremors Unable to assess for ataxia as pt couldn't follow commands No dysmetria Gait not assessed--PT notes reviewed. - Psychiatric Exam Additional comments: Appears somnolent but easily arousable to voice; cooperative; confused but pleasant and calm - Skin Skin Exam: Dry, Normal Color, Warm Assessment and Plan (1) Acute metabolic encephalopathy Assessment & Plan: Imaging reviewed: -MRI Brain (10/25/18): Limited age-related neuro degenerative changes appear similar to that identified in prior head CT 10/24/2018. No definite acute brain infarction, mass effect or intracranial hemorrhage appreciated. -CT Head non-contrast (10/24/18): No acute intracranial abnormality. No significant interval change. -Likely 2/2 to hyponatremia. Pt has recurrent episodes of AMS and hyponatremia. -EEG reordered yesterday (still not done)---will follow up with results. -Continue recs per nephro. -Continue to monitor electrolytes and replace prn. -Continue PT--recommend rehab upon d/c for conditioning and strengthening. -Notify neuro team of any acute changes to pt's condition. Case discussed with Dr. Valadez Status: Acute
--- NOTE | 2018-10-27 12:15 | CP.PCM.DIS ---
<Sultan Rocky - Last Filed: 10/27/18 14:23> Provider - Provider Date of Admission: 10/24/18 12:22 Attending physician: Bjorn Newell MD Consults: 10/24/18 12:52 Nephrology Consult Stat Comment: Consulting Provider: Steve Mcgee Consulting Physician: Steve Mcgee Reason for Consult: 72 YO F with reccurent diabetes and hyponatremia 10/25/18 10:27 Psychiatry Consult Routine Comment: Consulting Provider: Patricia Bonilla Consulting Physician: Patricia Bonilla Reason for Consult: acute delirium, insmonia, hyponatremia 10/25/18 10:54 Neurology Consult Routine Comment: Consulting Provider: Raciel Valadez Consulting Physician: Raciel Valadez Reason for Consult: altered mental status, hyponatremia Time Spent in preparation of Discharge (in minutes): 30 Diagnosis - Discharge Diagnosis (1) Hypomagnesemia Status: Acute (2) Hyponatremia Status: Resolved Priority: High (3) GERALD (acute kidney injury) Status: Resolved Priority: High (4) Altered mental state Status: Resolved (5) Hypokalemia Status: Resolved Priority: High (6) Microcytic anemia Status: Chronic (7) Hypertension Status: Chronic (8) Diabetes mellitus Status: Chronic (9) CAD (coronary artery disease) Status: Chronic (10) Hx of fall Status: Resolved Hospital Course - Lab Results Lab Results: Most Recent Lab Values WBC 6.9 K/uL (4.8-10.8) 10/27/18 04:20 RBC 4.12 Mil/uL (3.80-5.20) 10/27/18 04:20 Hgb 10.1 g/dL (12.0-16.0) L 10/27/18 04:20 Hct 30.9 % (34.0-47.0) L 10/27/18 04:20 MCV 74.9 fl (81.0-99.0) L 10/27/18 04:20 MCH 24.4 pg (27.0-31.0) L 10/27/18 04:20 MCHC 32.6 g/dL (33.0-37.0) L 10/27/18 04:20 RDW 15.6 % (11.5-14.5) H 10/27/18 04:20 Plt Count 260 K/uL (130-400) 10/27/18 04:20 MPV 8.0 fl (7.2-11.7) 10/25/18 04:10 Neut % (Auto) 79.4 % (50.0-75.0) H 10/25/18 04:10 Lymph % (Auto) 11.1 % (20.0-40.0) L 10/25/18 04:10 Early % (Auto) 6.8 % (0.0-10.0) 10/25/18 04:10 Eos % (Auto) 2.1 % (0.0-4.0) 10/25/18 04:10 Baso % (Auto) 0.6 % (0.0-2.0) 10/25/18 04:10 Neut # (Auto) 7.8 K/uL (1.8-7.0) H 10/25/18 04:10 Lymph # (Auto) 1.1 K/uL (1.0-4.3) 10/25/18 04:10 Early # (Auto) 0.7 K/uL (0.0-0.8) 10/25/18 04:10 Eos # (Auto) 0.2 K/uL (0.0-0.7) 10/25/18 04:10 Baso # (Auto) 0.1 K/uL (0.0-0.2) 10/25/18 04:10 Sodium 133 mmol/l (132-148) 10/27/18 04:20 Potassium 3.7 MMOL/L (3.6-5.0) 10/27/18 04:20 Chloride 96 mmol/L (98-107) L 10/27/18 04:20 Carbon Dioxide 27 mmol/L (22-30) 10/27/18 04:20 Anion Gap 14 (10-20) 10/27/18 04:20 BUN 14 mg/dl (7-17) 10/27/18 04:20 Creatinine 0.5 mg/dl (0.7-1.2) L 10/27/18 04:20 Est GFR ( Amer) > 60 10/27/18 04:20 Est GFR (Non-Af Amer) > 60 10/27/18 04:20 POC Glucose (mg/dL) 214 mg/dL (65-110) H 10/27/18 11:12 Random Glucose 187 mg/dL (65-105) H 10/27/18 04:20 Hemoglobin A1c 8.1 % (4.2-6.5) H 10/25/18 10:42 Serum Osmolality 269 mosm/kg (272-300) L 10/24/18 20:45 Calcium 9.1 mg/dL (8.4-10.2) 10/27/18 04:20 Phosphorus 2.9 mg/dl (2.5-4.5) 10/27/18 04:20 Magnesium 1.3 MG/DL (1.6-2.3) L 10/27/18 04:20 Iron 44 ug/dL (37-170) 10/25/18 10:42 TIBC 318 ug/dL (250-450) 10/25/18 10:42 % Saturation 14 % (20-55) L 10/25/18 10:42 Ferritin 102.0 ng/Ml (11.1-264.0) 10/25/18 10:42 Total Bilirubin 0.4 mg/dl (0.2-1.3) 10/26/18 04:30 AST 21 U/L (14-36) 10/26/18 04:30 ALT 22 U/L (9-52) 10/26/18 04:30 Alkaline Phosphatase 85 U/L (38-126) 10/26/18 04:30 Ammonia 28 umo/L (11-51) 10/25/18 16:22 Troponin I < 0.0120 ng/mL (0.00-0.120) 10/25/18 04:10 Total Protein 6.5 G/DL (6.3-8.2) 10/26/18 04:30 Albumin 3.3 g/dL (3.5-5.0) L D 10/26/18 04:30 Globulin 3.2 gm/dL (2.2-3.9) 10/26/18 04:30 Albumin/Globulin Ratio 1.0 (1.0-2.1) 10/26/18 04:30 Triglycerides 151 mg/DL (0-149) H 10/26/18 22:33 Cholesterol 134 mg/dL (0-199) 10/26/18 22:33 LDL Cholesterol Direct 46 mg/dL (0-129) 10/26/18 22:33 HDL Cholesterol 50 MG/DL (30-70) 10/26/18 22:33 Urine Color Yellow (YELLOW) 10/25/18 21:59 Urine Clarity Slighty-cloudy (Clear) 10/25/18 21:59 Urine pH 8.0 (5.0-8.0) 10/25/18 21:59 Ur Specific Fitzgerald 1.010 (1.003-1.030) 10/25/18 21:59 Urine Protein 100 mg/dL (NEGATIVE) 10/25/18 21:59 Urine Glucose (UA) 150 mg/dL (NEGATIVE) 10/25/18 21:59 Urine Ketones Trace mg/dL (NEGATIVE) 10/25/18 21:59 Urine Blood Negative (NEGATIVE) 10/25/18 21:59 Urine Nitrate Negative (NEGATIVE) 10/25/18 21:59 Urine Bilirubin Negative (NEGATIVE) 10/25/18 21:59 Urine Urobilinogen 0.2-1.0 mg/dL (0.2-1.0) 10/25/18 21:59 Ur Leukocyte Esterase Neg Luis/uL (Negative) 10/25/18 21:59 Urine RBC (Auto) < 1 /hpf (0-3) 10/25/18 21:59 Urine Microscopic WBC < 1 /hpf (0-5) 10/25/18 21:59 Urine Osmolality 388 mosm/kg (300-1000) 10/25/18 22:06 Ur Random Sodium 79 mmol/L 10/26/18 16:45 - Hospital Course Hospital Course: 72 year old female a PMHx hypertension, mild asthma, type 2 diabetes, hyperlipidemia, CAD readmitted on 10/24/18 for acute delirium secondary to hyponatremia (Serum sodium 123). Of note, patient was admitted on 10/22/18 for electrolytes disturbances including hyponatreamia (Na 119, hypokalemia and hypomagnesemia. Patient was discharged on 10/23/18 after having serum Na 126 (corrected serum Na of 128). Since admission from 10/24/18, neprologist Dr. Mcgee was involved in patient's care. Patient initially received NS @100 cc/hr for 2 days. Patient's hyponatremia improved from 123 to 130 on 10/25/18 but trended down to 127 on 10/26/18. 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 NS was stopped and patient received a dose of Samsca yesterday. This morning, patient's serum sodium is 133. Patient is started with gentle hydration of NS @ 30 cc/hr and NaCl salt 1 gm po bid. Patient's hyponatremia was likely secondary to HCTZ use. HCTZ was discontinued since 10/22/18. This morning, patient is alert, awake and oriented x 3 but still feels weak. Patient had a fall in the bathroom last night and was evaluated with neg hip/pelvis x-ray. Neurologist Dr. Valadez was also involved in the care. CT head and brain MRI were unremarkable. PT/OT evaluated the patient and recommed to have TCU for gait strenghtening and patient's family memebers agree with the plan. Patient is hemodynamically stable to discharge to TCU for physical rehabilitation and gait strengthening. Discharge Exam - Head Exam Head Exam: ATRAUMATIC, NORMAL INSPECTION, NORMOCEPHALIC - Eye Exam Eye Exam: Normal appearance - ENT Exam ENT Exam: Mucous Membranes Moist, Normal Oropharynx - Neck Exam Neck exam: Full Rom, Normal Inspection - Respiratory Exam Respiratory Exam: NORMAL BREATHING PATTERN. absent: Rales, Rhonchi, Respiratory Distress Additional comments: scattered expiratory wheezing with prolong expiratory phase. - Cardiovascular Exam Cardiovascular Exam: REGULAR RHYTHM, +S1, +S2 - GI/Abdominal Exam GI & Abdominal Exam: Normal Bowel Sounds, Soft. absent: Rebound, Tenderness - Extremities Exam Extremities exam: normal inspection - Neurological Exam Neurological exam: Alert, Oriented x3 - Psychiatric Exam Psychiatric exam: Normal Affect, Normal Mood - Skin Skin Exam: Dry Additional comments: scaly rash on B/L foot Discharge Plan - Follow Up Plan Condition: FAIR Disposition: REHAB FACILITY/REHAB UNIT Additional Instructions: Discharge to TCU Referrals: Steve Mcgee MD [Staff Provider] - Raciel Valadez MD [Medical Doctor] - <Bjorn Newell - Last Filed: 10/27/18 16:00> Provider - Provider Date of Admission: 10/24/18 12:22 Attending physician: Bjorn Newell MD Consults: 10/24/18 12:52 Nephrology Consult Stat Comment: Consulting Provider: Steve Mcgee Consulting Physician: Steve Mcgee Reason for Consult: 72 YO F with reccurent diabetes and hyponatremia 10/25/18 10:27 Psychiatry Consult Routine Comment: Consulting Provider: Patricia Bonilla Consulting Physician: Patricia Bonilla Reason for Consult: acute delirium, insmonia, hyponatremia 10/25/18 10:54 Neurology Consult Routine Comment: Consulting Provider: Raciel Valadez Consulting Physician: Raciel Valadez Reason for Consult: altered mental status, hyponatremia Hospital Course - Lab Results Lab Results: Most Recent Lab Values WBC 6.9 K/uL (4.8-10.8) 10/27/18 04:20 RBC 4.12 Mil/uL (3.80-5.20) 10/27/18 04:20 Hgb 10.1 g/dL (12.0-16.0) L 10/27/18 04:20 Hct 30.9 % (34.0-47.0) L 10/27/18 04:20 MCV 74.9 fl (81.0-99.0) L 10/27/18 04:20 MCH 24.4 pg (27.0-31.0) L 10/27/18 04:20 MCHC 32.6 g/dL (33.0-37.0) L 10/27/18 04:20 RDW 15.6 % (11.5-14.5) H 10/27/18 04:20 Plt Count 260 K/uL (130-400) 10/27/18 04:20 MPV 8.0 fl (7.2-11.7) 10/25/18 04:10 Neut % (Auto) 79.4 % (50.0-75.0) H 10/25/18 04:10 Lymph % (Auto) 11.1 % (20.0-40.0) L 10/25/18 04:10 Early % (Auto) 6.8 % (0.0-10.0) 10/25/18 04:10 Eos % (Auto) 2.1 % (0.0-4.0) 10/25/18 04:10 Baso % (Auto) 0.6 % (0.0-2.0) 10/25/18 04:10 Neut # (Auto) 7.8 K/uL (1.8-7.0) H 10/25/18 04:10 Lymph # (Auto) 1.1 K/uL (1.0-4.3) 10/25/18 04:10 Early # (Auto) 0.7 K/uL (0.0-0.8) 10/25/18 04:10 Eos # (Auto) 0.2 K/uL (0.0-0.7) 10/25/18 04:10 Baso # (Auto) 0.1 K/uL (0.0-0.2) 10/25/18 04:10 Sodium 133 mmol/l (132-148) 10/27/18 04:20 Potassium 3.7 MMOL/L (3.6-5.0) 10/27/18 04:20 Chloride 96 mmol/L (98-107) L 10/27/18 04:20 Carbon Dioxide 27 mmol/L (22-30) 10/27/18 04:20 Anion Gap 14 (10-20) 10/27/18 04:20 BUN 14 mg/dl (7-17) 10/27/18 04:20 Creatinine 0.5 mg/dl (0.7-1.2) L 10/27/18 04:20 Est GFR ( Amer) > 60 10/27/18 04:20 Est GFR (Non-Af Amer) > 60 10/27/18 04:20 POC Glucose (mg/dL) 214 mg/dL (65-110) H 10/27/18 11:12 Random Glucose 187 mg/dL (65-105) H 10/27/18 04:20 Hemoglobin A1c 8.1 % (4.2-6.5) H 10/25/18 10:42 Serum Osmolality 269 mosm/kg (272-300) L 10/24/18 20:45 Calcium 9.1 mg/dL (8.4-10.2) 10/27/18 04:20 Phosphorus 2.9 mg/dl (2.5-4.5) 10/27/18 04:20 Magnesium 1.3 MG/DL (1.6-2.3) L 10/27/18 04:20 Iron 44 ug/dL (37-170) 10/25/18 10:42 TIBC 318 ug/dL (250-450) 10/25/18 10:42 % Saturation 14 % (20-55) L 10/25/18 10:42 Ferritin 102.0 ng/Ml (11.1-264.0) 10/25/18 10:42 Total Bilirubin 0.4 mg/dl (0.2-1.3) 10/26/18 04:30 AST 21 U/L (14-36) 10/26/18 04:30 ALT 22 U/L (9-52) 10/26/18 04:30 Alkaline Phosphatase 85 U/L (38-126) 10/26/18 04:30 Ammonia 28 umo/L (11-51) 10/25/18 16:22 Troponin I < 0.0120 ng/mL (0.00-0.120) 10/25/18 04:10 Total Protein 6.5 G/DL (6.3-8.2) 10/26/18 04:30 Albumin 3.3 g/dL (3.5-5.0) L D 10/26/18 04:30 Globulin 3.2 gm/dL (2.2-3.9) 10/26/18 04:30 Albumin/Globulin Ratio 1.0 (1.0-2.1) 10/26/18 04:30 Triglycerides 151 mg/DL (0-149) H 10/26/18 22:33 Cholesterol 134 mg/dL (0-199) 10/26/18 22:33 LDL Cholesterol Direct 46 mg/dL (0-129) 10/26/18 22:33 HDL Cholesterol 50 MG/DL (30-70) 10/26/18 22:33 Cortisol AM Sample 15.1 ug/dL (4.46-22.7) 10/27/18 04:20 Urine Color Yellow (YELLOW) 10/25/18 21:59 Urine Clarity Slighty-cloudy (Clear) 10/25/18 21:59 Urine pH 8.0 (5.0-8.0) 10/25/18 21:59 Ur Specific Fitzgerald 1.010 (1.003-1.030) 10/25/18 21:59 Urine Protein 100 mg/dL (NEGATIVE) 10/25/18 21:59 Urine Glucose (UA) 150 mg/dL (NEGATIVE) 10/25/18 21:59 Urine Ketones Trace mg/dL (NEGATIVE) 10/25/18 21:59 Urine Blood Negative (NEGATIVE) 10/25/18 21:59 Urine Nitrate Negative (NEGATIVE) 10/25/18 21:59 Urine Bilirubin Negative (NEGATIVE) 10/25/18 21:59 Urine Urobilinogen 0.2-1.0 mg/dL (0.2-1.0) 10/25/18 21:59 Ur Leukocyte Esterase Neg Luis/uL (Negative) 10/25/18 21:59 Urine RBC (Auto) < 1 /hpf (0-3) 10/25/18 21:59 Urine Microscopic WBC < 1 /hpf (0-5) 10/25/18 21:59 Urine Osmolality 388 mosm/kg (300-1000) 10/25/18 22:06 Ur Random Sodium 79 mmol/L 10/26/18 16:45 Attending/Attestation - Attestation I have personally seen and examined this patient.: Yes I have fully participated in the care of the patient.: Yes I have reviewed all pertinent clinical information, including history, physical exam and plan: Yes Notes (Text): 10/27/18 15:50 Patient seen and examined with resident. Case discussed and agreed with assessment and plan. 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 Patient is feeling better, alert and oriented but will need further therapy in TCU.
--- NOTE | 2018-10-27 14:36 | CP.PCM.PN ---
Subjective - Date & Time of Evaluation Date of Evaluation: 10/27/18 Time of Evaluation: 14:36 - Subjective Subjective: Doing much better less confused Objective - Vital Signs/Intake and Output Vital Signs (last 24 hours): Temp Pulse Resp BP Pulse Ox 98.1 F 67 18 130/76 95 10/27/18 12:20 10/27/18 12:20 10/27/18 12:20 10/27/18 12:20 10/27/18 12:20 - Medications Medications: Current Medications Albuterol/Ipratropium (Duoneb 3 Mg/0.5 Mg (3 Ml) Ud) 3 ml INH RQ6 PRN PRN Reason: Shortness of Breath Last Admin: 10/27/18 11:09 Dose: 3 ml Amlodipine Besylate (Norvasc) 10 mg PO DAILY [facility] Last Admin: 10/27/18 08:56 Dose: 10 mg Carvedilol (Coreg) 25 mg PO Q12 [facility] Last Admin: 10/27/18 08:56 Dose: 25 mg Dextrose (Dextrose 50% Inj) 0 ml IV STAT PRN; Protocol PRN Reason: Hypoglycemia Protocol Dextrose (Dextrose 50% Inj) 50 ml IVP ONCE PRN PRN Reason: Hypoglycemia Dextrose (Glutose 15) 0 gm PO ONCE PRN; Protocol PRN Reason: Hypoglycemia Protocol Enoxaparin Sodium (Lovenox) 40 mg SC DAILY [facility]; Protocol Last Admin: 10/27/18 08:57 Dose: 40 mg Glucagon (Glucagen Diagnostic Kit) 0 mg IM STAT PRN; Protocol PRN Reason: Hypoglycemia Protocol Sodium Chloride (Sodium Chloride 0.9%) 1,000 mls @ 30 mls/hr IV .Q24H [facility] Stop: 10/28/18 09:59 Last Admin: 10/27/18 11:00 Dose: 30 mls/hr Insulin Human Regular (Humulin R) 0 units SC ACHS [facility]; Protocol Last Admin: 10/27/18 11:43 Dose: 3 units Lactic Acid (Lac-Hydrin 12% Lotion (225 G)) 1 applic TOP BID [facility] Last Admin: 10/27/18 08:55 Dose: 1 applic Losartan Potassium (Cozaar) 100 mg PO DAILY [facility] Last Admin: 10/27/18 08:56 Dose: 100 mg Metformin HCl (Glucophage) 850 mg PO BIDWM [facility] Last Admin: 10/27/18 08:56 Dose: 850 mg Multivitamins/Minerals (Therapeutic-M Tab) 1 tab PO DAILY [facility] Last Admin: 10/27/18 08:56 Dose: 1 tab Pravastatin Sodium (Pravachol) 40 mg PO HS [facility] Last Admin: 10/26/18 22:00 Dose: 40 mg Sodium Chloride (Sodium Chloride Tab) 1 gm PO Q12 [facility] Last Admin: 10/27/18 11:42 Dose: 1 gm - Labs Labs: 10/27/18 04:20 10/27/18 04:20 - Constitutional Appears: No Acute Distress - Eye Exam Eye Exam: absent: Conjunctival injection - ENT Exam ENT Exam: absent: Mucous Membranes Moist - Neck Exam Neck Exam: absent: Lymphadenopathy - Respiratory Exam Respiratory Exam: NORMAL BREATHING PATTERN. absent: Chest Wall Tenderness - GI/Abdominal Exam GI & Abdominal Exam: Soft, Normal Bowel Sounds - Extremities Exam Extremities Exam: absent: Calf Tenderness - Back Exam Back Exam: absent: CVA tenderness (L), CVA tenderness (R) - Neurological Exam Neurological Exam: Awake Assessment and Plan (1) Acute metabolic encephalopathy Status: Acute (2) Hyponatremia Assessment & Plan: Patient admitted with hyponatremia serum sodium 123 which has gone up to 130 yesterday and back down to 127 yesterday and this morning was 133 Hypochloremia Above hyponatremia and hypochloremia probably from hydrochlorothiazide and has been taking 25 mg daily Patient restless confused agitated Rule out intracranial pathology Urine osmolarity disproportion high to the serum osmolarity consistent with SIADH? Recommendation Discontinue hydrochlorothiazide and all diuretics Spoke to the son not to give her hydrochlorothiazide Patient responded to Samsca 15 mg was given yesterday Give sodium chloride p.o. Status: Resolved
[2018-10-27 16:28] VITALS: BP 147/71; PULSE 71; RESP 20; TEMP 98; O2SAT 96
== END 2018-10-27 18:11 | DRG 643 ==
LOC: H.ER 10:18 → H.ERHOLD 12:22 → H.TEL 18:55
DX: E22.2 Syndrome of inappropriate secretion of antidiuretic hormone (principal); G93.41 Metabolic encephalopathy; N17.9 Acute kidney failure, unspecified; E11.65 Type 2 diabetes mellitus with hyperglycemia; J45.20 Mild intermittent asthma, uncomplicated; D50.9 Iron deficiency anemia, unspecified; E78.5 Hyperlipidemia, unspecified; E83.42 Hypomagnesemia; E87.6 Hypokalemia; E87.8 Other disorders of electrolyte and fluid balance, not elsewhere classified; I10 Essential (primary) hypertension; I25.10 Atherosclerotic heart disease of native coronary artery without angina pectoris; T50.2X5A Adverse effect of carbonic-anhydrase inhibitors, benzothiadiazides and other diuretics, initial encounter; Z96.653 Presence of artificial knee joint, bilateral; H26.9 Unspecified cataract; M19.90 Unspecified osteoarthritis, unspecified site; Z79.84 Long term (current) use of oral hypoglycemic drugs; Z79.899 Other long term (current) drug therapy

== ENCOUNTER 2018-10-27 14:52 | Inpatient (IN) | payer OTHER, BC ==
[2018-10-27 18:26] VITALS: BMI 31.2
[2018-10-27 18:58] VITALS: RESP 20
[2018-10-27] MEDS ORDERED: Albuterol-Ipratrop 3 mg / 0.5 (3 ml) UD INH PRN (19:03)
[2018-10-27] MEDS ORDERED: Sodium Chloride 0.9% 500 ML IV SCH (20:00)
[2018-10-27] MEDS ORDERED: Pravastatin Sodium 40 MG TAB PO SCH (22:00)
[2018-10-27] MEDS: Insulin Lispro (humaLOG) 100 Units/ml Inj SC SCH (22:17)
[2018-10-28] MEDS: Insulin Lispro (humaLOG) 100 Units/ml Inj SC SCH (08:20)
[2018-10-28 08:22] VITALS: BP 166/84
[2018-10-28 08:44] LABS: BASO # 0.1 K/uL (0.0-0.2); BASO % 0.8 % (0.0-2.0); EOS # 0.3 K/uL (0.0-0.7); EOS % 3.8 % (0.0-4.0); HEMOGLOBIN 12.2 g/dL (12.0-16.0); LYMPH # 1.7 K/uL (1.0-4.3); MEAN CELL VOLUME 76.9 fl (81.0-99.0); MEAN CORPUSCULAR HEMOGLOBIN 24.7 pg (27.0-31.0); MEAN CORPUSCULAR HGB CONC 32.2 g/dL (33.0-37.0); MEAN PLATELET VOLUME 8.1 fl (7.2-11.7); MONO # 0.7 K/uL (0.0-0.8); MONO % 8.1 % (0.0-10.0); NEUT # 5.6 K/uL (1.8-7.0); NEUT % 67.3 % (50.0-75.0); NRBC % 0.2 % (0.0-0.0); RBC 4.95 Mil/uL (3.80-5.20); RED CELL DISTRIBUTION WIDTH 15.2 % (11.5-14.5); WHITE BLOOD COUNT 8.3 K/uL (4.8-10.8)
[2018-10-28] MEDS ORDERED: Enoxaparin 40 mg Syringe SC SCH (09:00)
[2018-10-28] MEDS ORDERED: Multivitamin With Minerals Tab PO SCH (09:00)
[2018-10-28 09:14] LABS: ALB/GLOB RATIO 1.1 (1.0-2.1); ALT/SGPT 23 U/L (9-52); AST/SGOT 27 U/L (14-36); BLOOD UREA NITROGEN 10 mg/dl (7-17); CALCIUM 9.2 mg/dL (8.4-10.2); GFR NON-AFRICAN AMERICAN > 60
[2018-10-28 10:17] VITALS: PULSE 67; TEMP 97.6; O2SAT 97
--- NOTE | 2018-10-28 10:49 | CP.PCM.HP ---
<[place] - Last Filed: 10/28/18 13:57> History of Present Illness - History of Present Illness History of Present Illness: 72 year old female a PMHx hypertension, mild asthma, type 2 diabetes, hyperlipidemia, CAD admitted to TCU today for physical rehabilitation and gait strengthening. Patient was admitted to [facility] inpatient on 10/24/18 for acute delirium secondary to hyponatremia (Serum sodium 123). Of note, patient was admitted on 10/22/18 for electrolytes disturbances including hyponatreamia (Na 119, hypokalemia and hypomagnesemia but was discharged on 10/23/18 after having serum Na 126 (corrected serum Na of 128). Since admission from 10/24/18, neprologist Dr. Mcgee was involved in patient's care. Patient initially received NS @100 cc/hr for 2 days. Patient's hyponatremia improved from 123 to 130 on 10/25/18 but trended down to 127 on 10/26/18. 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 NS was stopped and patient received a dose of Samsca on 10/26/18 and patient's serum sodium improved to 133. Patient started on NS@ 30 cc/hr and NaCl tablet po q12 since yesterday. Present on Admission - Present on Admission Any Indicators Present on Admission: No Review of Systems - Review of Systems Review of Systems: All 12 systems reviewed and negative except as mentioned in HPI Past Patient History - Infectious Disease Hx of Infectious Diseases: None - Tetanus Immunizations Tetanus Immunization: Unknown - Past Medical History & Family History Past Medical History?: Yes - Past Social History Smoking Status: Never Smoked - CARDIAC Hx Cardiac Disorders: Yes Hx Hypertension: Yes - PULMONARY Hx Respiratory Disorders: No Hx Asthma: Yes - NEUROLOGICAL Hx Neurological Disorder: No - HEENT Hx HEENT Problems: No - RENAL Hx Chronic Kidney Disease: No - ENDOCRINE/METABOLIC Hx Endocrine Disorders: Yes Hx Diabetes Mellitus Type 2: Yes - HEMATOLOGICAL/ONCOLOGICAL Hx Blood Disorders: No Hx AIDS: No Hx Human Immunodeficiency Virus (HIV): No - INTEGUMENTARY Hx Dermatological Problems: No - MUSCULOSKELETAL/RHEUMATOLOGICAL Hx Falls: Yes (fell last night) - GASTROINTESTINAL Hx Gastrointestinal Disorders: No - GENITOURINARY/GYNECOLOGICAL Hx Genitourinary Disorders: No - PSYCHIATRIC Hx Substance Use: No - SURGICAL HISTORY Hx Surgeries: Yes Hx Cataract Extraction: Yes (bilateral) Hx Orthopedic Surgery: Yes (bilateral knee replacement) - ANESTHESIA Hx Anesthesia: Yes Hx Anesthesia Reactions: No Hx Malignant Hyperthermia: No Meds Allergies/Adverse Reactions: Allergies Allergy/AdvReac Type Severity Reaction Status Date / Time acetaminophen [From Tylenol] Allergy RASH Verified 10/22/18 15:36 chlorophyllin Allergy RASH Verified 10/22/18 15:36 Sulfa (Sulfonamide Allergy RASH Verified 10/22/18 15:36 Antibiotics) baking soda Allergy RASH Uncoded 10/22/18 15:36 Physical Exam - Constitutional Appears: No Acute Distress - Head Exam Head Exam: NORMAL INSPECTION - Eye Exam Eye Exam: Normal appearance - ENT Exam ENT Exam: Mucous Membranes Moist, Normal Oropharynx - Neck Exam Neck exam: Positive for: Normal Inspection - Respiratory Exam Respiratory Exam: Clear to Auscultation Bilateral, NORMAL BREATHING PATTERN. absent: Rhonchi, Wheezes - Cardiovascular Exam Cardiovascular Exam: REGULAR RHYTHM, +S1, +S2 - GI/Abdominal Exam GI & Abdominal Exam: Normal Bowel Sounds, Soft. absent: Tenderness - Extremities Exam Extremities exam: Positive for: normal inspection. Negative for: pedal edema - Neurological Exam Neurological exam: Alert, Oriented x3 Additional comments: Patient is awake, alert and oriented. No signs of AMS seen - Psychiatric Exam Psychiatric exam: Normal Affect, Normal Mood - Skin Skin Exam: Dry, Normal Color Results - Vital Signs Recent Vital Signs: Last Vital Signs Temp 97.6 F 10/28/18 10:16 Pulse 67 10/28/18 10:16 Resp 20 10/28/18 10:16 BP 166/84 H 10/28/18 10:16 Pulse Ox 97 10/28/18 10:16 - Labs Result Diagrams: 10/28/18 08:30 10/28/18 08:30 Labs: Laboratory Results - last 24 hr 10/27/18 10/28/18 10/28/18 21:50 05:51 08:30 WBC 8.3 RBC 4.95 Hgb 12.2 D Hct 38.0 MCV 76.9 L D MCH 24.7 L MCHC 32.2 L RDW 15.2 H Plt Count 250 MPV 8.1 Neut % (Auto) 67.3 Lymph % (Auto) 20.0 [place] % (Auto) 8.1 Eos % (Auto) 3.8 Baso % (Auto) 0.8 Neut # (Auto) 5.6 Lymph # (Auto) 1.7 [place] # (Auto) 0.7 Eos # (Auto) 0.3 Baso # (Auto) 0.1 Sodium Potassium Chloride Carbon Dioxide Anion Gap BUN Creatinine Est GFR ( Amer) Est GFR (Non-Af Amer) POC Glucose (mg/dL) 204 H 168 H Random Glucose Calcium Phosphorus Magnesium Total Bilirubin AST ALT Alkaline Phosphatase Total Protein Albumin Globulin Albumin/Globulin Ratio 10/28/18 08:30 WBC RBC Hgb Hct MCV MCH MCHC RDW Plt Count MPV Neut % (Auto) Lymph % (Auto) [place] % (Auto) Eos % (Auto) Baso % (Auto) Neut # (Auto) Lymph # (Auto) [place] # (Auto) Eos # (Auto) Baso # (Auto) Sodium 134 Potassium 4.0 Chloride 97 L Carbon Dioxide 25 Anion Gap 16 BUN 10 Creatinine 0.4 L Est GFR ( Amer) > 60 Est GFR (Non-Af Amer) > 60 POC Glucose (mg/dL) Random Glucose 236 H Calcium 9.2 Phosphorus 3.7 Magnesium 1.2 L Total Bilirubin 0.5 AST 27 ALT 23 Alkaline Phosphatase 88 Total Protein 7.7 Albumin 4.0 Globulin 3.7 Albumin/Globulin Ratio 1.1 Assessment & Plan - Assessment and Plan (Free Text) Assessment: 72 year old female a PMHx hypertension, mild asthma, type 2 diabetes, hyperlipidemia, CAD admitted to TCU today for physical rehabilitation and gait strengthening. Plan: Weakness, diffculty walking -c/w PT/OT -monitor vitals and labs Hyponatremia likely secondary to medication side effect -Resolved -serum Na is 134 this morning -c/w 0.9% NS at 30 cc/hr -NaCl tablet 1 gm po q12 -f/u VBG and BMP Acute Delirium likely secondary to hyponatremia -resolved -Head CT: no acute intracranial pathology -Brain MRI: IMPRESSION:Limited age-related neuro degenerative changes appear similar to that identified in prior head CT 10/24/2018. No definite acute brain infarction, mass effect or intracranial hemorrhage appreciated. Hypomagnesemia: -Mag 1.2 this morning -ordered 2 gm mag -f/u BMP Hypertension, chronic -Not controlled -hold diuretic -c/w losartan to 100 mg po daily -c/w amlodine to 10 mg po daily and coreg -Continue with rest of the home medication -Monitor BP Microcytic anemia, unclear etiology -stable -Iron studies within normal limit Diabetes Mellitus, type 2 -Uncontrolled -HbA1c is 8.1 -Hold Linagliptin glipizide for now -c/w Metformin 850 mg po bid -Accuchecks ACTID, insulin coverage scale and hypoglycemia protocol Hyperlipidemia and CAD - c/w simvastatin Asthma, mild intermittent -Stable -Duoneb PRN Q4 hrs Diet - Heart healthy diet Prophylaxis - SCd amd lovenox Plan discussed w/ Dr. Newell <Bjorn Newell D - Last Filed: 10/28/18 17:22> Results - Vital Signs Recent Vital Signs: Last Vital Signs Temp 97.6 F 10/28/18 10:16 Pulse 67 10/28/18 10:16 Resp 20 10/28/18 10:16 BP 166/84 H 10/28/18 10:16 Pulse Ox 97 10/28/18 10:16 - Labs Result Diagrams: 10/28/18 08:30 10/28/18 08:30 Labs: Laboratory Results - last 24 hr 10/27/18 10/28/18 10/28/18 21:50 05:51 08:30 WBC 8.3 RBC 4.95 Hgb 12.2 D Hct 38.0 MCV 76.9 L D MCH 24.7 L MCHC 32.2 L RDW 15.2 H Plt Count 250 MPV 8.1 Neut % (Auto) 67.3 Lymph % (Auto) 20.0 [place] % (Auto) 8.1 Eos % (Auto) 3.8 Baso % (Auto) 0.8 Neut # (Auto) 5.6 Lymph # (Auto) 1.7 [place] # (Auto) 0.7 Eos # (Auto) 0.3 Baso # (Auto) 0.1 Sodium Potassium Chloride Carbon Dioxide Anion Gap BUN Creatinine Est GFR ( Amer) Est GFR (Non-Af Amer) POC Glucose (mg/dL) 204 H 168 H Random Glucose Calcium Phosphorus Magnesium Total Bilirubin AST ALT Alkaline Phosphatase Total Protein Albumin Globulin Albumin/Globulin Ratio 10/28/18 10/28/18 08:30 11:18 WBC RBC Hgb Hct MCV MCH MCHC RDW Plt Count MPV Neut % (Auto) Lymph % (Auto) [place] % (Auto) Eos % (Auto) Baso % (Auto) Neut # (Auto) Lymph # (Auto) [place] # (Auto) Eos # (Auto) Baso # (Auto) Sodium 134 Potassium 4.0 Chloride 97 L Carbon Dioxide 25 Anion Gap 16 BUN 10 Creatinine 0.4 L Est GFR ( Amer) > 60 Est GFR (Non-Af Amer) > 60 POC Glucose (mg/dL) 296 H Random Glucose 236 H Calcium 9.2 Phosphorus 3.7 Magnesium 1.2 L Total Bilirubin 0.5 AST 27 ALT 23 Alkaline Phosphatase 88 Total Protein 7.7 Albumin 4.0 Globulin 3.7 Albumin/Globulin Ratio 1.1 Attending/Attestation - Attestation I have personally seen and examined this patient.: Yes I have fully participated in the care of the patient.: Yes I have reviewed all pertinent clinical information: Yes Notes (Text): 10/28/18 17:10 Patient seen and examined with resident. Case discussed and agreed with assessment. Patient however claimed she was feeling much better and wanted to go home and just get followed up with her PCP. Risk was discussed with son and patient. However patient decided to sign out AMA. She will follow up with Dr Valadez within a week. 10/28/18 17:12
[2018-10-28] MEDS ORDERED: Magnesium Sulfate 2 gm/50 ml 2 GM/50 ML BAG IV ONE (11:00)
== END 2018-10-28 12:30 | disposition left against medical advice (07) | DRG 92 ==
LOC: H.TCU 18:39
PROC: F07M6FZ Therapeutic Exercise Treatment of Musculoskeletal System - Whole Body using Assistive, Adaptive, Supportive or Protective Equipment (ICD-10-PCS; principal; 2018-10-27)
DX: R26.9 Unspecified abnormalities of gait and mobility (principal); E22.2 Syndrome of inappropriate secretion of antidiuretic hormone; R53.1 Weakness; E78.5 Hyperlipidemia, unspecified; I10 Essential (primary) hypertension; I25.10 Atherosclerotic heart disease of native coronary artery without angina pectoris; J45.20 Mild intermittent asthma, uncomplicated; Z96.653 Presence of artificial knee joint, bilateral; E83.42 Hypomagnesemia; E87.6 Hypokalemia; D50.9 Iron deficiency anemia, unspecified; E11.649 Type 2 diabetes mellitus with hypoglycemia without coma